=== PATIENT | male | born 1970 | race Caucasian/White ===

== ENCOUNTER 2019-06-04 15:55 | Inpatient (IN) | payer MEDICAID ==
[~2019-06-04] VITALS: Ht 175.3 cm; Wt 72.7 kg
[~2019-06-04 15:55] MED LIST: BACTRIM PO; CEPH-443 PO; CHOL100062 PO; MULTI PO; THIA100T56 PO
[2019-06-04] MEDS ORDERED: ONDANSETRON 4 MG INJ IV STA (16:10)
[2019-06-04] MEDS ORDERED: CLINDAMYCIN 900 MG/D5W (PMX) 50 ML IVPB STA (16:10)
[2019-06-04] MEDS ORDERED: VANCOMYCIN 1 GM (PMX) 250 ML IVPB STA (16:10)
[2019-06-04] MEDS ORDERED: morphine 4 MG/ML VIAL IV STA (16:10)
[2019-06-04] MEDS ORDERED: PIPER-TAZO 3.375 GM IV (PMX) 100 ML IVPB STA (16:10)
[2019-06-04 16:50] VITALS: Ht 175.3 cm; Wt 72.7 kg
--- NOTE | 2019-06-04 19:34 | ERD ---
ER Documentation Chief Complaint Chief Complaint RT foot wound, RT lower ext red swollen HPI This is a 48-year-old male who is currently homeless and states he has no past medical history. He is complaining of right foot pain. He indicates that he has had redness to his right foot for several months but it is progressively worsened over the past several days. Indicates he is been in the sun and feels dehydrated. He smokes tobacco. He denies illicit drug use and no shortness of breath. He does state he consumed alcohol in a regular basis. He denies any feelings of anxiousness. He has no chest pain. He states the right foot pain is a dull ache. He states it is 5 out of 10 in intensity. He also complains of tenderness of his right calf which is a cramping sensation. He states he had no fevers no shaking no chills. ROS All systems reviewed and are negative except as per history of present illness. Medications Home Meds Active Scripts Cephalexin* (Keflex*) 500 Mg Capsule, 500 MG PO QID for 10 Days, CAP Prov:SHOLA GOOD MD 06/04/19 Trimethoprim-Sulfamethoxazole* (Bactrim*) 400-80 Mg Tab, 1 TAB PO BID, #20 TAB Prov:SOHLA GOOD MD 06/04/19 Allergies Allergies: Coded Allergies: No Known Allergy (Unverified , 06/04/19) PMhx/Soc Medical and Surgical Hx: pt denies Medical Hx, pt denies Surgical Hx, Unable to obtain Hx Alcohol Use: Yes (possible heavy use pt states "I drink a lot") Hx Substance Use: Yes Hx Tobacco Use: Yes Smoking Status: Current every day smoker Physical Exam Vitals Vital Signs Date Temp Pulse Resp B/P (MAP) Pulse Ox O2 O2 Flow FiO2 Time Delivery Rate 06/05/19 68 20 151/108 98 Room Air 07:14 (122) 06/05/19 98.3 80 20 156/93 96 Room Air 02:16 (114) 06/04/19 98.4 85 22 152/106 100 Room Air 19:14 (121) 06/04/19 98.4 92 22 154/99 100 16:50 (117) Physical Exam Constitutional:Well-developed. Very disheveled HEENT:Normocephalic. Atraumatic.Pupils were 5 mm equal reactive to light bilaterally. Moist mucous membranes.No tonsillar exudates. Neck: No nuchal rigidity. No lymphadenopathy. No posterior cervical spine tenderness or step-offs. Respiratory: Not using accessory muscles of respiration.Lungs were clear to auscultation bilaterally. No rhonchi. No rales. No wheezing. Cardiovascular: Regular rate regular rhythm.No murmurs. No rubs were appreciated.S1, S2 normal. Distal pulses are palpable 2+ bilaterally. GI: Abdomen was soft. Nontender. Non Distended. No pulsatile abdominal masses or bruits. No rebound. No guarding. Bowel sounds were present and normal. Muscle skeletal: Full range of motion of both the upper and lower extremities bilaterally.Normal muscle tone.tenderness of the right calf with no asymmetrical swelling. Negative Homans sign bilaterally Skin: No petechia, no purpura. No lesions on the palms or the soles of the feet. No maculopapular rash. Erythremia and warmth over the distal third of the right lower extremity including the dorsal aspect of the foot. Onychomycosis bilaterally. Excoriation of the skin extending over the right ankle and dorsal aspect of the foot. No subcutaneous emphysema. NEURO: Patient was alert, awake to person but not to place or time. Patient was very guarded and only spoke a few words. However speech was not slurred. Gait was not observed as patient refused to ambulate. Result Diagram: 06/04/19 1637 06/04/19 1637 Results 24 hrs Laboratory Tests Test 06/04/19 16:36 06/04/19 16:37 06/04/19 16:41 06/04/19 16:46 Urine Color YELLOW Urine Clarity CLEAR Urine pH 6.0 Urine Specific 1.015 [place] Urine Ketones NEGATIVE mg/dL Urine Nitrite NEGATIVE mg/dL Urine Bilirubin NEGATIVE mg/dL Urine NEGATIVE mg/dL Urobilinogen Urine Leukocyte NEGATIVE Elly/ul Esterase Urine Hemoglobin NEGATIVE mg/dL Urine Glucose NEGATIVE mg/dL Urine Total NEGATIVE mg/dl Protein Salicylates Level < 1.0 mg/dl Urine Opiates Positive Screen Acetaminophen < 10.0 ug/ml Level Urine Negative Barbiturates Urine POSITIVE Amphetamines Screen Urine Negative Benzodiazepines Screen Urine Cocaine Negative Screen Urine Negative Cannabinoids Ethyl Alcohol < 10.0 mg/dl Level White Blood Count 7.1 10^3/ul Red Blood Count 4.32 10^6/ul Hemoglobin 12.3 g/dl Hematocrit 37.9 % Mean Corpuscular 87.7 fl Volume Mean Corpuscular 28.5 pg Hemoglobin Mean Corpuscular 32.5 g/dl Hemoglobin Concen t Red Cell 14.2 % Distribution Width Platelet Count 445 10^3/UL Mean Platelet 8.1 fl Volume Immature 0.600 % Granulocytes % Neutrophils % 55.7 % Lymphocytes % 28.9 % Monocytes % 9.3 % Eosinophils % 4.8 % Basophils % 0.7 % Nucleated Red 0.0 /100WBC Blood Cells % Immature 0.040 10^3/ul Granulocytes # Neutrophils # 4.0 10^3/ul Lymphocytes # 2.1 10^3/ul Monocytes # 0.7 10^3/ul Eosinophils # 0.3 10^3/ul Basophils # 0.1 10^3/ul Nucleated Red 0.0 10^3/ul Blood Cells # Prothrombin Time 11.9 Sec Prothrombin Time 0.9 Ratio INR International 0.87 Normalized Ratio Activated 35.0 Sec Partial Thrombopl ast Time Sodium Level 142 mmol/L Potassium Level 3.9 mmol/L Chloride Level 105 mmol/L Carbon Dioxide 29 mmol/L Level Anion Gap 8 Blood Urea 10 mg/dl Nitrogen Creatinine 0.73 mg/dl Est Glomerular > 60 mL/min Filtrat Rate mL/min Glucose Level 112 mg/dl Calcium Level 9.1 mg/dl Total Bilirubin 0.2 mg/dl Direct Bilirubin 0.00 mg/dl Indirect 0.2 mg/dl Bilirubin Aspartate Amino 26 IU/L Transf (AST/SGOT) Alanine 20 IU/L Aminotransferase (ALT/SGPT) Alkaline 98 IU/L Phosphatase Troponin I < 0.012 ng/ml Total Protein 7.7 g/dl Albumin 3.6 g/dl Globulin 4.10 g/dl Albumin/Globulin 0.87 Ratio Amylase Level 82 U/L Lipase 105 U/L Bedside Glucose 109 mg/dL POC Venous 1.7 mmol/L Lactate Test 06/04/19 16:47 POC Venous 1.6 mmol/L Lactate Current Medications Medications Dose Sig/Americo Start Time Status Last (Trade) Ordered Route PRN Stop Time Admin Dose Reason Admin Morphine 4 mg ONCE STAT 06/04/19 DC 06/04/19 Sulfate IV 16:10 16:44 (morphine) 06/04/19 16:26 Ondansetron 4 mg ONCE STAT 06/04/19 DC 06/04/19 HCl (Zofran IV 16:10 16:44 Inj) 06/04/19 16:26 Vancomycin 250 ml @ ONCE STAT 06/04/19 DC 06/04/19 HCl 125 mls/hr IVPB 16:10 19:12 06/04/19 18:09 Clindamycin 50 ml @ 50 ONCE STAT 06/04/19 DC 06/04/19 HCl/ mls/hr IVPB 16:10 18:12 Dextrose 06/04/19 17:09 Piperacillin 100 ml @ ONCE STAT 06/04/19 DC 06/04/19 Sod/ 200 mls/hr IVPB 16:10 16:44 Tazobactam 06/04/19 16:39 Sod Procedures/MDM The patient presented to the emergency department with a spreading erythematous superficial infection of the skin and subcutaneous tissues. My differential diagnosis included but was not limited to necrotizing fasciitis, lymphangitis, thrombophlebitis, deep vein thrombosis, allergic reaction, neoplasm, gout or abscess. Predisposing factors of the progressive spread of erythema, warmth, pain and tenderness was considered such as lymphedema, tinea pedis, open wounds, prior trauma or surgery, pre-existing skin lesion (furuncle), retained foreign body, injection drug use or vascular or immune compromise. The patient was placed on antibiotics to cover Staphylococcus aureus, including resistant strains such as community-acquired methicillin-resistant S. aureus. The patient is homeless and appeared very disheveled. I did obtain a venous duplex ultrasound which was negative for deep vein thrombosis. The patient showed no evidence of arterial insufficiency. The patient was afebrile, no leukocytosis. Repeat lactic acids were all normal and no evidence of sepsis. I did administer IV antibiotics which included vancomycin and clindamycin and Zosyn given that the patient states he has poor access to medications. I offered admission to the hospital for the patient but he stated he did not want to stay as he wanted to go smoke cigarettes. He refused a nicotine patch. rolled materials worker came to speak with the patient and provide outpatient resources. The patient however was unable to provide his birthdate or name. He would only speak several words at a time. Placement was attempted by the social services counselor however no facility was able to take the patient due to the lack of information and also that the patient was gravely disabled unable to ambulate and needed wound care dressing changes. The patient remained in the emergency department for over 19 hours. Upon multiple re-evaluations by myself the patient had now developed purulent drainage over the wound. I did feel he required admission for continuation of IV antibiotics. He will be admitted to the hospitalist. Critical Care: Time: 60 minutes Treatments/Evaluations: Close monitoring and treatment of unstable vital signs, cardiorespiratory, and neurologic status, while maintaining tight balance of fluid, respiratory, and cardiac interventions. Time does not include performing any of the above billable procedures. Departure Diagnosis: Primary Impression: Cellulitis Site of cellulitis: extremity Site of cellulitis of extremity: lower extremity Laterality: left Qualified Codes: L03.116 - Cellulitis of left lower limb Additional Impression: Amphetamine abuse Condition: Serious Patient Instructions: Cellulitis SHOLA GOOD MD Jun 04, 2019 19:34
[2019-06-05] MEDS ORDERED: ONDANSETRON 4 MG INJ IV PRN ×2 (12:30→14:30)
[2019-06-05] MEDS ORDERED: ACETAMINOPHEN 325 MG TAB PO PRN ×2 (12:30→14:30)
[2019-06-05 14:09] VITALS: BP 146/87; PULSE 82; RESP 19
--- NOTE | 2019-06-05 14:10 | HP ---
Date/Time of Note Date/Time of Note DATE: 06/05/19 TIME: 14:10 Assessment/Plan VTE Prophylaxis Pharmacological prophylaxis: LMWH Lines/Catheters IV [facility] Saline Lock Assessment/Plan Hospital Course 48-year-old male who is apparently homeless with no details of his identity, medical, and social history, who presented to the emergency room with chief complaint of right lower extremity redness and pain, with evidence of underlying right lower extremity cellulitis, who will be admitted to inpatient setting for further treatment and evaluation. 1. Right lower extremity cellulitis. Start antimicrobials including coverage for MRSA. Obtain ID consult. Obtain podiatry evaluation. Arterial Doppler study negative for any significant arterial occlusion. Bilateral lower extremity venous Doppler study negative for any DVT. 2. Alcohol abuse. Will start the patient on vitamin supplements. Will start the patient on Librium taper. Will maintain the patient on PRN IV benzodiazepines for any active DTs. 3. Nicotine use. Cessation will be advised. Nicotine patch if the patient developed central symptoms. 4. Normocytic anemia. Most probably anemia chronic disease. Monitor H&H closely. 5. Homelessness. kiln worker consult. 6. Incomplete database. Obtain social work consult. Plan: The patient will be admitted to inpatient medical surgical floor. The patient will be started on a regular diet. The patient will be started on DVT prophylaxis. The patient will remain a full code. Activities will be with assist. The rest of the patient's management will be based on the clinical course, inputs from consultants, and the results of diagnostic studies. Based on the patient's clinical presentation, he most probably requires more than 2 midnights' stay for further management and evaluation of his clinical presentation. The patient was seen in collaboration with Dr. Hernandez. Result Diagram: 06/04/19 1637 06/04/19 1637 Results 24hrs Laboratory Tests Test 06/04/19 16:36 06/04/19 16:37 06/04/19 16:41 06/04/19 16:46 Urine Color YELLOW Urine Clarity CLEAR Urine pH 6.0 Urine Specific 1.015 [place] Urine Ketones NEGATIVE Urine Nitrite NEGATIVE Urine Bilirubin NEGATIVE Urine Urobilinogen NEGATIVE Urine Leukocyte NEGATIVE Esterase Urine Hemoglobin NEGATIVE Urine Glucose NEGATIVE Urine Total Protein NEGATIVE Salicylates Level < 1.0 L Urine Opiates Screen Positive Acetaminophen Level < 10.0 L Urine Barbiturates Negative Urine Amphetamines POSITIVE Screen Urine Negative Benzodiazepines Screen Urine Cocaine Screen Negative Urine Cannabinoids Negative Ethyl Alcohol Level < 10.0 H White Blood Count 7.1 Red Blood Count 4.32 L Hemoglobin 12.3 L Hematocrit 37.9 L Mean Corpuscular 87.7 Volume Mean Corpuscular 28.5 L Hemoglobin Mean Corpuscular 32.5 Hemoglobin Concent Red Cell 14.2 Distribution Width Platelet Count 445 H Mean Platelet Volume 8.1 Immature 0.600 H Granulocytes % Neutrophils % 55.7 Lymphocytes % 28.9 Monocytes % 9.3 Eosinophils % 4.8 Basophils % 0.7 Nucleated Red Blood 0.0 Cells % Immature 0.040 H Granulocytes # Neutrophils # 4.0 Lymphocytes # 2.1 Monocytes # 0.7 Eosinophils # 0.3 Basophils # 0.1 Nucleated Red Blood 0.0 Cells # Prothrombin Time 11.9 Prothrombin Time 0.9 Ratio INR International 0.87 Normalized Ratio Activated 35.0 Partial Thromboplast Time Sodium Level 142 Potassium Level 3.9 Chloride Level 105 Carbon Dioxide Level 29 Anion Gap 8 Blood Urea Nitrogen 10 Creatinine 0.73 Est Glomerular > 60 Filtrat Rate mL/min Glucose Level 112 Calcium Level 9.1 Total Bilirubin 0.2 Direct Bilirubin 0.00 Indirect Bilirubin 0.2 Aspartate Amino 26 Transf (AST/SGOT) Alanine 20 Aminotransferase (AL T/SGPT) Alkaline Phosphatase 98 Troponin I < 0.012 Total Protein 7.7 Albumin 3.6 Globulin 4.10 H Albumin/Globulin 0.87 Ratio Amylase Level 82 Lipase 105 Bedside Glucose 109 POC Venous Lactate 1.7 Test 06/04/19 16:47 POC Venous Lactate 1.6 HPI/ROS Admit Date/Time Admit Date/Time Jun 05, 2019 at 12:03 Hx of Present Illness Reason for admission: Right lower extremity cellulitis, failure to thrive. Consultants 1. Freddie Zambrano MD, Infectious Diseases. 2. Haider Gilliam DPM, Podiatry. This is a 48-year-old male who does not know his name, age, or any other details who presented to the emergency room with a chief complaint of pain involving the right lower extremity. The patient is homeless. The patient has been having the right foot pain and chronic skin changes for approximately few months. However, he was unable to provide any further details of his history of present illness, his medical, surgical, or social history. The patient does not know where he lives. He does not know about any of his friends or family. However, the patient verbalized that he drinks alcohol on a daily basis. He also smokes cigarettes. He denied using any recreational drugs. However, his urine drug screen was positive for amphetamines. The patient was initially evaluated at the emergency room on 06/04/2019 and the plan was to discharge him on oral antibiotics. However, the patient did not have any safe disposal. kiln worker was involved in the patient's case. However, because of unknown identity of the patient, there was difficulty in placing this patient. Therefore, the patient will be admitted to inpatient setting for treating his right lower extremity cellulitis and assisting him with a safe disposal. ROS Subjective hx not possible: other (Patient confused and disoriented.) PMH/Family/Social Past Medical History Unable to obtain (patient does not know). Coded Allergies: No Known Allergy (Unverified , 06/04/19) Past Surgical History Unable to obtain (patient does not know). Right foot imaging shows evidence of RLE orthopedic surgery. Social History Alcohol Use: heavy Smoking Status: Current every day smoker Drug Use: other (Positive methamphetamine in urine.) Exam/Review of Systems Vital Signs Vitals Vital Signs Date Temp Pulse Resp B/P (MAP) Pulse Ox O2 O2 Flow FiO2 Time Delivery Rate 06/05/19 98.8 70 18 92/77 (82) 98 Room Air 12:32 Intake and Output 06/04/19 06/04/19 06/05/19 1515:00 23:00 07:00 IntakeIntake Total 150 ml BalanceBalance 150 ml Exam Exam General: Adequately build 48 year-old male lying in bed in no apparent distress, looks disheveled. HEENT: Normocephalic, atraumatic. Eyes: Anicteric sclerae, conjunctivae clear. ENT: Nasal septum midline, oral mucosa is dry. Neck supple, no JVD noticed. Respiratory: Bilaterally diminished breath sounds. No use of accessory muscles of respiration. No adventitious breath sounds. Cardiovascular: S1, S2 heard. Regular rate and rhythm. Abdomen: Soft, nontender, and nondistended. Bowel sounds positive in all 4 qu adrants. Genitourinary: Deferred. Extremities: No cyanosis, no clubbing. Right lower extremity circumferential erythema from the middle of the orosco to the ankle joint. Edema of the right ankle joint. Excessive exfoliation of the right lower extremity with dry scabs circumferentially. Peripheral pulses palpable. Neurologic: The patient is awake and alert. Unable to tell his name, age, his location, or any other personal details. Answers" I do not know" to all questions related to his identity. Additional Comments B/L LE Arterial Doppler Study IMPRESSION: 1. Diffuse lower extremity arterial wall calcifications without evidence of focal hemodynamically significant stenosis. B/L LE Venous Doppler Study IMPRESSION: No sonographic evidence for bilateral lower extremity deep venous thrombosis. Right Foot X-Ray IMPRESSION: Unremarkable right foot radiographs. Intramedullary rashaun traversing an old healed distal tibial fracture. Internal fixator plate and screws distal fibula. KAILYN GILBERT NP Jun 05, 2019 14:10
[2019-06-05] MEDS ORDERED: VANCOMYCIN IV PER PHARMACY XX SCH (15:00)
--- NOTE | 2019-06-05 16:53 | CONS ---
Assessment/Plan Assessment/Plan Assessment/Plan (Daily) Right lower extremity cellulitis Right lower extremity non pressure chronic ulceration Onychomycosis Tinea pedis Homelessness Alcohol abuse Nicotine dependence Plan Patient was seen and examined and provided nursing instructions regarding dressings. Daily irrigation with dakins, application of betadine 4x4 gauze and wrap with kerlix. Patient states too painful to do a bedside debridement. Will plan for OR debridement and coordinate with OR to find available time. Wound cultures to be obtained. Antibiotics per recommendations. Consultation Date/Type/Reason Admit Date/Time Jun 05, 2019 at 12:03 Date/Time of Note DATE: 06/05/19 TIME: 16:53 Hx of Present Illness 48-year-old male who is a poor historian. Per reports he does not know his name, age, or any other details. Presented to the emergency room with a chief complaint of pain involving the right lower extremity. The patient is homeless. The patient has been having the right foot pain and chronic skin changes for approximately few months. However, he was unable to provide any further details of his history of present illness, his medical, surgical, or social history. The patient does not know where he lives. He does not know about any of his friends or family. However, the patient verbalized that he drinks alcohol on a daily basis. He also smokes cigarettes. He denied using any recreational drugs. However, his urine drug screen was positive for amphetamines. ROS negative except for HPI Past Medical History unknown Home Meds Active Scripts Cephalexin* (Keflex*) 500 Mg Capsule, 500 MG PO QID for 10 Days, CAP Prov:SHOLA GOOD MD 06/04/19 Trimethoprim-Sulfamethoxazole* (Bactrim*) 400-80 Mg Tab, 1 TAB PO BID, #20 TAB Prov:SHOLA GOOD MD 06/04/19 Medications Current Medications IV Flush (NS 3 ml) 3 ml PER PROTOCOL IV ; Start 06/05/19 at 14:30 Ondansetron HCl (Zofran Inj) 4 mg Q6H PRN IV NAUSEA/VOMITING; Start 06/05/19 at 14:30 Acetaminophen (Tylenol Tab) 650 mg Q6H PRN PO .PAIN 1-3 OR TEMP; Start 06/05/19 at 14:30 Acetaminophen/ Hydrocodone Bitart ([place] (5/325)) 1 tab Q6H PRN PO .MOD PAIN 4- 6; Start 06/05/19 at 14:30 Enoxaparin Sodium (Lovenox) 40 mg DAILY SC ; Start 06/06/19 at 09:00 Vancomycin HCl (Vanco Iv Per Pharmacy) VANCOMYCIN PER PHARMACY PER PROTOCOL XX ; Start 06/05/19 at 15:00 Piperacillin Sod/ Tazobactam Sod 100 ml @ 200 mls/hr Q6 IVPB ; Start 06/05/19 at 16:00 Chlordiazepoxide (Librium) 25 mg TID PO ; Start 06/05/19 at 16:00 Lorazepam (Ativan) 1 mg Q6H PRN IV Anxiety; Start 06/05/19 at 15:00 Vancomycin HCl 1.25 gm/Sodium Chloride 250 ml @ 83.333 mls/ hr ONCE ONCE IVPB ; Start 06/05/19 at 17:00; Stop 06/05/19 at 19:59 Vancomycin HCl 250 ml @ 125 mls/hr Q12H IVPB ; Start 06/06/19 at 05:00 Thiamine HCl (Vitamin B1) 100 mg DAILY PO ; Start 06/06/19 at 09:00 Multivitamins Therapeutic (Theragran) 1 tab DAILY PO ; Start 06/06/19 at 09:00 Allergies: Coded Allergies: No Known Allergy (Unverified , 06/04/19) Past Surgical History Right foot imaging shows evidence of RLE orthopedic surgery. Family History Significant Family History: no pertinent family hx Social History Alcohol Use: heavy Smoking Status: Current every day smoker Drug Use: other (Positive methamphetamine in urine.) Exam/Review of Systems Exam Vitals Vital Signs Date Temp Pulse Resp B/P (MAP) Pulse Ox O2 O2 Flow FiO2 Time Delivery Rate 06/05/19 98.5 82 19 146/87 95 Room Air 14:09 (106) Intake and Output 06/04/19 06/04/19 06/05/19 1515:00 23:00 07:00 IntakeIntake Total 150 ml BalanceBalance 150 ml Exam Palpable pedal pulses Protective sensations intact Mycotic thickened toe nails Patient's feet are covered in dry dirt Right lower extremity with diffuse erythema Right lower extremity dorsal foot ulceration fibrogranular with dry eschar 3 x 3 x 0.2cm, unable to probe to bone Right lateral and anterior leg ulcer which measures 4 x 8 x 0.2cm fibrogranular with dry eschar unable to probe to bone there is purulent collections appreciated within the eschar sites Overall unkempt appearance. Muscle strength 5/5 in all compartments of the foot. Results Result Diagram: 06/05/19 1523 06/05/19 1523 Results 24hrs Laboratory Tests Test 06/05/19 15:23 White Blood Count 8.7 # Red Blood Count 4.58 L Hemoglobin 12.9 L Hematocrit 39.9 L Mean Corpuscular Volume 87.1 Mean Corpuscular Hemoglobin 28.2 L Mean Corpuscular Hemoglobin Concent 32.3 Red Cell Distribution Width 14.4 Platelet Count 514 H Mean Platelet Volume 8.1 Immature Granulocytes % 0.600 H Neutrophils % 64.6 Lymphocytes % 22.6 Monocytes % 7.5 Eosinophils % 4.0 Basophils % 0.7 Nucleated Red Blood Cells % 0.0 Immature Granulocytes # 0.050 H Neutrophils # 5.6 Lymphocytes # 2.0 Monocytes # 0.7 Eosinophils # 0.4 Basophils # 0.1 Nucleated Red Blood Cells # 0.0 Erythrocyte Sedimentation Rate 48 H Sodium Level 143 Potassium Level 3.8 Chloride Level 105 Carbon Dioxide Level 29 Anion Gap 9 Blood Urea Nitrogen 11 Creatinine 0.66 Est Glomerular Filtrat Rate mL/min > 60 Glucose Level 120 Hemoglobin A1c 5.4 Calcium Level 8.7 Phosphorus Level 3.6 Magnesium Level 1.9 Total Bilirubin 0.2 Direct Bilirubin 0.00 Indirect Bilirubin 0.2 Aspartate Amino Transf (AST/SGOT) 22 Alanine Aminotransferase (ALT/SGPT) 15 Alkaline Phosphatase 95 C-Reactive Protein Pending Total Protein 7.9 Albumin 3.8 Globulin 4.10 H Albumin/Globulin Ratio 0.92 Thyroid Stimulating Hormone (TSH) Pending Free Thyroxine 1.15 Medications Medication Current Medications IV Flush (NS 3 ml) 3 ml PER PROTOCOL IV ; Start 06/05/19 at 14:30 Ondansetron HCl (Zofran Inj) 4 mg Q6H PRN IV NAUSEA/VOMITING; Start 06/05/19 at 14:30 Acetaminophen (Tylenol Tab) 650 mg Q6H PRN PO .PAIN 1-3 OR TEMP; Start 06/05/19 at 14:30 Acetaminophen/ Hydrocodone Bitart ([place] (5/325)) 1 tab Q6H PRN PO .MOD PAIN 4- 6; Start 06/05/19 at 14:30 Enoxaparin Sodium (Lovenox) 40 mg DAILY SC ; Start 06/06/19 at 09:00 Vancomycin HCl (Vanco Iv Per Pharmacy) VANCOMYCIN PER PHARMACY PER PROTOCOL XX ; Start 06/05/19 at 15:00 Piperacillin Sod/ Tazobactam Sod 100 ml @ 200 mls/hr Q6 IVPB ; Start 06/05/19 at 16:00 Chlordiazepoxide (Librium) 25 mg TID PO ; Start 06/05/19 at 16:00 Lorazepam (Ativan) 1 mg Q6H PRN IV Anxiety; Start 06/05/19 at 15:00 Vancomycin HCl 1.25 gm/Sodium Chloride 250 ml @ 83.333 mls/ hr ONCE ONCE IVPB ; Start 06/05/19 at 17:00; Stop 06/05/19 at 19:59 Vancomycin HCl 250 ml @ 125 mls/hr Q12H IVPB ; Start 06/06/19 at 05:00 Thiamine HCl (Vitamin B1) 100 mg DAILY PO ; Start 06/06/19 at 09:00 Multivitamins Therapeutic (Theragran) 1 tab DAILY PO ; Start 06/06/19 at 09:00 RODRIGUEZ CHILDRESS DPM Jun 05, 2019 16:53
[2019-06-05] MEDS ORDERED: VANCOMYCIN HCL 1.25 GM in SOD CHLORIDE 0.9% 250 ML IVPB ONE (17:00)
[2019-06-05] MEDS: PIPER-TAZO 3.375 GM IV (PMX) 100 ML IVPB SCH ×2 (17:52→23:33)
[2019-06-05] MEDS: CHLORDIAZEPOXIDE 25 MG CAP PO SCH ×2 (18:12→23:32)
[2019-06-05 20:49] VITALS: BP 132/99; PULSE 86; RESP 18
--- NOTE | 2019-06-05 22:06 | CONS ---
DATE OF ADMISSION: 06/05/2019 DATE OF CONSULTATION: 06/05/2019 TYPE OF CONSULTATION: Infectious Disease. REASON FOR CONSULTATION: Antibiotic management. HISTORY OF PRESENT ILLNESS: One Two is a 48-year-old male who comes in with right lower extremity re dness and swelling and right foot wound. The patient is homeless, has no past medical history, compl ains of right foot pain. He has redness in his right foot for several months, progressively worsened over the past few days. Notes that he has been in the sun and feels dehydrated. He denies illicit drug use and no shortness of breath. He does consume alcohol on a regular basis. He denies feelings of anxiousness. He has no chest pain. He states that his right foot pain is dull, 5/10 in intensit y. He complains of tenderness in his right calf, but has no other symptoms. He has no fever or javier ing chills. SOCIAL HISTORY: He is a heavy drinker. He smokes every day. ALLERGIES: NONE TO PENICILLIN, SULFA OR FOODS. MEDICATIONS: Per chart. REVIEW OF SYSTEMS: As per HPI. PHYSICAL EXAMINATION: GENERAL: The patient is a very disheveled male. He is awake, in no acute distress. VITAL SIGNS: Stable. He is afebrile. SKIN: He has erythema and warmth of the distal third of the right lower extremity including the dors al aspect of foot. Onychomycosis bilaterally. Excoriation of the skin extending over the right ankl e and dorsal aspect of the foot. No subcutaneous emphysema. HEENT: Within normal limits. NECK: Supple. LYMPH NODES: None palpable. CHEST: Decreased breath sounds at the bases. HEART: Without murmur or gallop. ABDOMEN: Soft, nontender, without organosplenomegaly or masses. EXTREMITIES: Without cyanosis, clubbing, or edema. As noted, he has erythema, warmth of the distal third of the right lower extremity. RECTAL AND GENITAL: Deferred. NEUROLOGICAL EVALUATION: No focal neurological abnormality. ANCILLARY LABORATORY DATA: The patient has a white count 7.1 with 58% neutrophils, H and H of 12.3 a nd 37.9, platelet count 445,000. BUN and creatinine 10/0.73, glucose 112. Urine is negative for lamar kocyte esterase, positive for amphetamines. IMPRESSION AND PLAN: The patient was started on vancomycin, clindamycin and Zosyn. The clindamycin added for possible group A strep and the possibility of necrotizing fasciitis. The ERs differential, according to Dr. Kinney, was necrotizing fasciitis, lymphangitis, thrombophlebitis, deep vein thro mbosis, allergic reaction, neoplasm, gout or abscess. The patient was started on vancomycin to cover Staph aureus and also clindamycin and Zosyn. Presently, there is no growth in the urine. The patie nt is essentially stable at this point. Unremarkable right foot radiographs. No sonographic evidenc e of bilateral lower extremity deep vein thrombosis. Chest x-ray: No evidence for acute or active c ardiopulmonary disease and diffuse lower extremity arterial wall calcification without evidence of fo mariah hemodynamically significant stenosis. Aortoiliac disease cannot be excluded based on this examin ation. For the time being, will continue on current therapy. The clindamycin was discontinued, syed guillermo I concur with. We will continue current therapy. I want to thank the hospitalist for asking us to see this unfortunate gentleman in consultation. Dictated By: MARIVEL ZARAGOZA MD, JD/KHUSHI Conf#: [id number] DID#: [id number] CC: ASHLEY HORTA MD;*EndCC*
[2019-06-06 01:58] VITALS: BP 148/79; PULSE 74; RESP 20
[2019-06-06] MEDS: VANCOMYCIN 1 GM 250 ML IVPB SCH ×2 (04:38→17:15)
[2019-06-06] MEDS: PIPER-TAZO 3.375 GM IV (PMX) 100 ML IVPB SCH ×2 (06:39→12:52)
[2019-06-06 07:43] VITALS: BP 150/89; PULSE 75; RESP 19
[2019-06-06] MEDS: ENOXAPARIN 40 MG/0.4 ML SYG SC SCH (09:00)
[2019-06-06] MEDS: CHOLECALCIFEROL 1,000 UNIT TAB PO SCH (09:10)
[2019-06-06] MEDS: MULTIVITAMINS THERAPEUTIC TAB PO SCH (09:10)
[2019-06-06] MEDS: CHLORDIAZEPOXIDE 25 MG CAP PO SCH ×3 (09:10→20:19)
[2019-06-06] MEDS: DAKINS 0.0125%(1/40) 473 ML SOLUTION TP SCH (09:10)
[2019-06-06] MEDS: THIAMINE 100 MG TAB PO SCH (09:10)
--- NOTE | 2019-06-06 11:02 | PSY ---
Date/Time of Note Date/Time of Note DATE: 06/06/19 TIME: 10:57 Psychiatric Subjective Eval Consent Pt consented to telemedicine: No Subjective Evaluation Patient location: inpatient Chief Complaint: RT foot wound, RT lower ext red swollen History of present illness Patient is patient is a 58-year-old male , homeless with no details of his identity. He is selectively mute, responding to questions in a monosyllables, and nodding his head. Patient stared blankly, cannot process information, in poor contact with reality. He has poor impulse control poor coping skills, denies suicidal ideation, denies feeling of hopelessness and helplessness, denies hearing voices and contracted for safety. Patient declined any psychiatric medication at the moment, will need a reevaluation in a few days. Past psychiatric history Refused response Hospitalization: other Medical history Problems Medical Problems: (1) Amphetamine abuse Status: Acute (2) Cellulitis Status: Acute Allergies: Coded Allergies: No Known Allergy (Unverified , 06/04/19) Substance Abuse Substance use: other (No response) Social History Marital status: other DPA/Conservatorship: No Psychiatric Objective Eval Mental Status Examination: Eye Contact: Poor Behavior: Guarded Speech: Other (Selectively mute) AFFECT: Constricted (Guarded) Mood: Other Thought Content: Other Orientation: x3 Insight: Severe Judgement: Severe Attention Span: Distractible Laboratory Results Laboratory Tests Test 06/04/19 16:36 06/04/19 16:37 06/04/19 16:41 06/04/19 16:46 Urine Color YELLOW Urine Clarity CLEAR Urine pH 6.0 Urine Specific 1.015 Yulan Urine Ketones NEGATIVE mg/dL Urine Nitrite NEGATIVE mg/dL Urine Bilirubin NEGATIVE mg/dL Urine NEGATIVE mg/dL Urobilinogen Urine Leukocyte NEGATIVE Elly/ul Esterase Urine NEGATIVE mg/dL Hemoglobin Urine Glucose NEGATIVE mg/dL Urine Total NEGATIVE mg/dl Protein Salicylates < 1.0 mg/dl Level Urine Opiates Positive Screen Acetaminophen < 10.0 ug/ml Level Urine Negative Barbiturates Urine POSITIVE Amphetamines Screen Urine Negative Benzodiazepines Screen Urine Cocaine Negative Screen Urine Negative Cannabinoids Ethyl Alcohol < 10.0 mg/dl Level White Blood 7.1 10^3/ul Count Red Blood Count 4.32 10^6/ul Hemoglobin 12.3 g/dl Hematocrit 37.9 % Mean 87.7 fl Corpuscular Volume Mean 28.5 pg Corpuscular Hemoglobin Mean 32.5 g/dl Corpuscular Hemoglobin Conc ent Red Cell 14.2 % Distribution Width Platelet Count 445 10^3/UL Mean Platelet 8.1 fl Volume Immature 0.600 % Granulocytes % Neutrophils % 55.7 % Lymphocytes % 28.9 % Monocytes % 9.3 % Eosinophils % 4.8 % Basophils % 0.7 % Nucleated Red 0.0 /100WBC Blood Cells % Immature 0.040 10^3/ul Granulocytes # Neutrophils # 4.0 10^3/ul Lymphocytes # 2.1 10^3/ul Monocytes # 0.7 10^3/ul Eosinophils # 0.3 10^3/ul Basophils # 0.1 10^3/ul Nucleated Red 0.0 10^3/ul Blood Cells # Prothrombin 11.9 Sec Time Prothrombin 0.9 Time Ratio INR 0.87 International Normalized Rati o Activated 35.0 Sec Partial Thrombo plast Time Sodium Level 142 mmol/L Potassium Level 3.9 mmol/L Chloride Level 105 mmol/L Carbon Dioxide 29 mmol/L Level Anion Gap 8 Blood Urea 10 mg/dl Nitrogen Creatinine 0.73 mg/dl Est Glomerular > 60 mL/min Filtrat Rate mL/min Glucose Level 112 mg/dl Calcium Level 9.1 mg/dl Total Bilirubin 0.2 mg/dl Direct 0.00 mg/dl Bilirubin Indirect 0.2 mg/dl Bilirubin Aspartate Amino 26 IU/L Transf (AST/SGO T) Alanine 20 IU/L Aminotransferas e (ALT/SGPT) Alkaline 98 IU/L Phosphatase Troponin I < 0.012 ng/ml Total Protein 7.7 g/dl Albumin 3.6 g/dl Globulin 4.10 g/dl Albumin/Globuli 0.87 n Ratio Amylase Level 82 U/L Lipase 105 U/L Bedside Glucose 109 mg/dL POC Venous 1.7 mmol/L Lactate Test 06/04/19 16:47 06/05/19 15:17 06/05/19 15:23 06/06/19 05:25 POC Venous 1.6 mmol/L Lactate C-Reactive < 0.5 mg/dl 0.5 mg/dl Protein Procalcitonin 0.02 ng/mL White Blood 8.7 10^3/ul 9.1 10^3/ul Count Red Blood Count 4.58 10^6/ul 4.54 10^6/ul Hemoglobin 12.9 g/dl 12.8 g/dl Hematocrit 39.9 % 39.8 % Mean 87.1 fl 87.7 fl Corpuscular Volume Mean 28.2 pg 28.2 pg Corpuscular Hemoglobin Mean 32.3 g/dl 32.2 g/dl Corpuscular Hemoglobin Conc ent Red Cell 14.4 % 14.4 % Distribution Width Platelet Count 514 10^3/UL 532 10^3/UL Mean Platelet 8.1 fl 8.1 fl Volume Immature 0.600 % 0.700 % Granulocytes % Neutrophils % 64.6 % 60.2 % Lymphocytes % 22.6 % 25.6 % Monocytes % 7.5 % 8.6 % Eosinophils % 4.0 % 4.1 % Basophils % 0.7 % 0.8 % Nucleated Red 0.0 /100WBC 0.0 /100WBC Blood Cells % Immature 0.050 10^3/ul 0.060 10^3/ul Granulocytes # Neutrophils # 5.6 10^3/ul 5.5 10^3/ul Lymphocytes # 2.0 10^3/ul 2.3 10^3/ul Monocytes # 0.7 10^3/ul 0.8 10^3/ul Eosinophils # 0.4 10^3/ul 0.4 10^3/ul Basophils # 0.1 10^3/ul 0.1 10^3/ul Nucleated Red 0.0 10^3/ul 0.0 10^3/ul Blood Cells # Erythrocyte 48 mm/Hr Sedimentation Rate Sodium Level 143 mmol/L 144 mmol/L Potassium Level 3.8 mmol/L 4.2 mmol/L Chloride Level 105 mmol/L 107 mmol/L Carbon Dioxide 29 mmol/L 29 mmol/L Level Anion Gap 9 8 Blood Urea 11 mg/dl 17 mg/dl Nitrogen Creatinine 0.66 mg/dl 0.79 mg/dl Est Glomerular > 60 mL/min > 60 mL/min Filtrat Rate mL/min Glucose Level 120 mg/dl 111 mg/dl Hemoglobin A1c 5.4 % Calcium Level 8.7 mg/dl 9.3 mg/dl Phosphorus 3.6 mg/dl 5.0 mg/dl Level Magnesium Level 1.9 mg/dl 2.0 mg/dl Total Bilirubin 0.2 mg/dl Direct 0.00 mg/dl Bilirubin Indirect 0.2 mg/dl Bilirubin Aspartate Amino 22 IU/L Transf (AST/SGO T) Alanine 15 IU/L Aminotransferas e (ALT/SGPT) Alkaline 95 IU/L Phosphatase Total Protein 7.9 g/dl Albumin 3.8 g/dl Globulin 4.10 g/dl Albumin/Globuli 0.92 n Ratio Vitamin D 19.4 ng/ml 1,25-Dihydroxy Thyroid 2.500 MIU/L Stimulating Hormone (TSH) Free Thyroxine 1.15 ng/dl Triglycerides 126 mg/dl Level Cholesterol 173 mg/dl Level LDL 104 mg/dl Cholesterol, Calculated HDL Cholesterol 44 mg/dl Cholesterol/HDL 3.9 RATIO Ratio Assessment and Plan Assessment/Diagnosis Diagnosis Psychosis NOS Recommendation/Plan Discharge Disposition: Other Legal Status: Voluntary (Patient needs reevaluation, did not get adequate information, but does not meet criteria for 5150 hold) SHANIQUA TREJO NP Jun 06, 2019 11:02
[2019-06-06 14:02] VITALS: BP 134/74; PULSE 78; RESP 22
--- NOTE | 2019-06-06 14:22 | CONS ---
Assessment/Plan Assessment/Plan Hospital Course (Demo Recall) Alert looks comfortable eating lunch no fevers overnight WBC 9.1 no shift no bands ESR yesterday 48 BUN 17 creatinine 0.79 Antimicrobials: Vanco Zosyn Physical examination this is a well-developed middle-aged white man who looks older his age with a poor hygiene patient is in no distress head atraumatic normocephalic neck is supple chest rise symmetrical breath sounds clear heart S1-S2 abdomen soft bowel sounds present extremities with right lower extremity erythema also dressing. Skin patient has a very poor hygiene and smells Assessment: Right lower extremity cellulitis Homelessness Alcohol and nicotine abuse Plan: Patient is stable he is being seen by podiatry and psych teams, change Zosyn to Rocephin Consultation Date/Type/Reason Admit Date/Time Jun 05, 2019 at 12:03 Initial Consult Date Type of Consult id Date/Time of Note DATE: 06/06/19 TIME: 14:21 Exam/Review of Systems Exam Vitals Vital Signs Date Temp Pulse Resp B/P (MAP) Pulse Ox O2 O2 Flow FiO2 Time Delivery Rate 06/06/19 97.7 78 22 134/74 97 Room Air 14:02 (94) Intake and Output 06/05/19 06/05/19 06/06/19 1515:00 23:00 07:00 IntakeIntake Total 850 ml 650 ml OutputOutput Total 900 ml 1600 ml BalanceBalance -50 ml -950 ml Results Result Diagram: 06/06/19 0525 06/06/19 0525 Results 24hrs Laboratory Tests Test 06/05/19 15:17 06/05/19 15:23 06/06/19 05:25 C-Reactive Protein < 0.5 0.5 Procalcitonin 0.02 White Blood Count 8.7 # 9.1 Red Blood Count 4.58 L 4.54 L Hemoglobin 12.9 L 12.8 L Hematocrit 39.9 L 39.8 L Mean Corpuscular Volume 87.1 87.7 Mean Corpuscular Hemoglobin 28.2 L 28.2 L Mean Corpuscular Hemoglobin Concent 32.3 32.2 Red Cell Distribution Width 14.4 14.4 Platelet Count 514 H 532 H Mean Platelet Volume 8.1 8.1 Immature Granulocytes % 0.600 H 0.700 H Neutrophils % 64.6 60.2 Lymphocytes % 22.6 25.6 Monocytes % 7.5 8.6 Eosinophils % 4.0 4.1 Basophils % 0.7 0.8 Nucleated Red Blood Cells % 0.0 0.0 Immature Granulocytes # 0.050 H 0.060 H Neutrophils # 5.6 5.5 Lymphocytes # 2.0 2.3 Monocytes # 0.7 0.8 Eosinophils # 0.4 0.4 Basophils # 0.1 0.1 Nucleated Red Blood Cells # 0.0 0.0 Erythrocyte Sedimentation Rate 48 H Sodium Level 143 144 Potassium Level 3.8 4.2 Chloride Level 105 107 Carbon Dioxide Level 29 29 Anion Gap 9 8 Blood Urea Nitrogen 11 17 Creatinine 0.66 0.79 Est Glomerular Filtrat Rate mL/min > 60 > 60 Glucose Level 120 111 Hemoglobin A1c 5.4 Calcium Level 8.7 9.3 Phosphorus Level 3.6 5.0 H Magnesium Level 1.9 2.0 Total Bilirubin 0.2 Direct Bilirubin 0.00 Indirect Bilirubin 0.2 Aspartate Amino Transf (AST/SGOT) 22 Alanine Aminotransferase (ALT/SGPT) 15 Alkaline Phosphatase 95 Total Protein 7.9 Albumin 3.8 Globulin 4.10 H Albumin/Globulin Ratio 0.92 Vitamin D 1,25-Dihydroxy 19.4 L Thyroid Stimulating Hormone (TSH) 2.500 Free Thyroxine 1.15 Triglycerides Level 126 Cholesterol Level 173 LDL Cholesterol, Calculated 104 HDL Cholesterol 44 Cholesterol/HDL Ratio 3.9 Medications Medication Current Medications IV Flush (NS 3 ml) 3 ml PER PROTOCOL IV ; Start 06/05/19 at 14:30 Ondansetron HCl (Zofran Inj) 4 mg Q6H PRN IV NAUSEA/VOMITING; Start 06/05/19 at 14:30 Acetaminophen (Tylenol Tab) 650 mg Q6H PRN PO .PAIN 1-3 OR TEMP; Start 06/05/19 at 14:30 Acetaminophen/ Hydrocodone Bitart ([place] (5/325)) 1 tab Q6H PRN PO .MOD PAIN 4- 6; Start 06/05/19 at 14:30 Enoxaparin Sodium (Lovenox) 40 mg DAILY SC ; Start 06/06/19 at 09:00 Vancomycin HCl (Vanco Iv Per Pharmacy) VANCOMYCIN PER PHARMACY PER PROTOCOL XX ; Start 06/05/19 at 15:00 Piperacillin Sod/ Tazobactam Sod 100 ml @ 200 mls/hr Q6 IVPB Last administered on 06/06/19 12:52; Admin Dose 200 MLS/HR; Start 06/05/19 at 16:00 Chlordiazepoxide (Librium) 25 mg TID PO Last administered on 06/06/19 12:55; Admin Dose 25 MG; Start 06/05/19 at 16:00 Lorazepam (Ativan) 1 mg Q6H PRN IV Anxiety; Start 06/05/19 at 15:00 Vancomycin HCl 250 ml @ 125 mls/hr Q12H IVPB Last administered on 06/06/19 04:38; Admin Dose 125 MLS/HR; Start 06/06/19 at 05:00 Thiamine HCl (Vitamin B1) 100 mg DAILY PO Last administered on 06/06/19 09:10; Admin Dose 100 MG; Start 06/06/19 at 09:00 Multivitamins Therapeutic (Theragran) 1 tab DAILY PO Last administered on 06/06/19 09:10; Admin Dose 1 TAB; Start 06/06/19 at 09:00 Sodium Hypochlorite (Dakins Diluted ()) 1 applic DAILY TP Last administered on 06/06/19 09:10; Admin Dose 1 APPLIC; Start 06/06/19 at 09:00 Cholecalciferol (Vitamin D) 1,000 unit DAILY PO Last administered on 06/06/19 09:10; Admin Dose 1,000 UNIT; Start 06/06/19 at 09:00 Miscellaneous Information (*Rx Drug Level Order Reminder*) VANCO TROUGH @ 0,500 0500 ONCE XX ; Start 06/07/19 at 05:00; Stop 06/07/19 at 05:01 CHEMO LEE NP Jun 06, 2019 14:22
--- NOTE | 2019-06-06 14:30 | PN ---
Date/Time of Note Date/Time of Note DATE: 06/06/19 TIME: 14:28 Assessment/Plan VTE Prophylaxis Risk score (from Ns)>0 risk: 1 SCD applied (from Ns): No SCD contraindicated: other Pharmacological prophylaxis: LMWH Pharm contraindication: patient refusal Lines/Catheters IV Catheter Type (from [facility]): Saline Lock Urinary Cath still in place: No Assessment/Plan Hospital Course SUBJECTIVE: Continues to be selectively mute. OBJECTIVE: Physical Exam General: Adequately build 48 year-old male lying in bed in no apparent distress, looks disheveled. HEENT: Normocephalic, atraumatic. Eyes: Anicteric sclerae, conjunctivae clear. ENT: Nasal septum midline, oral mucosa is dry. Neck supple, no JVD noticed. Respiratory: Bilaterally diminished breath sounds. No use of accessory muscles of respiration. No adventitious breath sounds. Cardiovascular: S1, S2 heard. Regular rate and rhythm. Abdomen: Soft, nontender, and nondistended. Bowel sounds positive in all 4 quadrants. Genitourinary: Deferred. Extremities: No cyanosis, no clubbing. Right lower extremity circumferential erythema from the middle of the [place] to the ankle joint. Edema of the right ankle joint. Excessive exfoliation of the right lower extremity with dry scabs circumferentially. Peripheral pulses palpable. Neurologic: The patient is awake and alert. Unable to tell his name, age, his location, or any other personal details. Answers" I do not know" to all questions related to his identity. Labs & Vitals per chart ASSESSMENT & PLAN 48-year-old male who is apparently homeless with no details of his identity, medical, and social history, who presented to the emergency room with chief complaint of right lower extremity redness and pain, with evidence of underlying right lower extremity cellulitis, who was admitted to inpatient setting for further treatment and evaluation. 1. Right lower extremity cellulitis. Continue antimicrobials including coverage for MRSA. ID Following. Podiatry following. Arterial Doppler study negative for any significant arterial occlusion. Bilateral lower extremity venous Doppler study negative for any DVT. 2. Alcohol abuse. Continue the patient on vitamin supplements. Continue the patient on Librium taper. Continue the patient on PRN IV benzodiazepines for any active DTs. 3. Nicotine use. Cessation will be advised. Nicotine patch if the patient developed central symptoms. 4. Normocytic anemia. Most probably anemia chronic disease. Monitor H&H closely. 5. Homelessness. chore worker consult. 6. Incomplete database. Obtain social work consult. 7. Fluids, electrolytes, and nutrition. Regular diet. 8. DVT prophylaxis. Subcutaneous Lovenox (patient refusing). 9. Plan. Continue antimicrobials as per ID. Needs placement upon discharge. The patient was seen in collaboration with Dr. Hernandez. Result Diagram: 06/06/19 0525 06/06/19 0525 Results 24hrs Laboratory Tests Test 06/05/19 15:17 06/05/19 15:23 06/06/19 05:25 C-Reactive Protein < 0.5 0.5 Procalcitonin 0.02 White Blood Count 8.7 # 9.1 Red Blood Count 4.58 L 4.54 L Hemoglobin 12.9 L 12.8 L Hematocrit 39.9 L 39.8 L Mean Corpuscular Volume 87.1 87.7 Mean Corpuscular Hemoglobin 28.2 L 28.2 L Mean Corpuscular Hemoglobin Concent 32.3 32.2 Red Cell Distribution Width 14.4 14.4 Platelet Count 514 H 532 H Mean Platelet Volume 8.1 8.1 Immature Granulocytes % 0.600 H 0.700 H Neutrophils % 64.6 60.2 Lymphocytes % 22.6 25.6 Monocytes % 7.5 8.6 Eosinophils % 4.0 4.1 Basophils % 0.7 0.8 Nucleated Red Blood Cells % 0.0 0.0 Immature Granulocytes # 0.050 H 0.060 H Neutrophils # 5.6 5.5 Lymphocytes # 2.0 2.3 Monocytes # 0.7 0.8 Eosinophils # 0.4 0.4 Basophils # 0.1 0.1 Nucleated Red Blood Cells # 0.0 0.0 Erythrocyte Sedimentation Rate 48 H Sodium Level 143 144 Potassium Level 3.8 4.2 Chloride Level 105 107 Carbon Dioxide Level 29 29 Anion Gap 9 8 Blood Urea Nitrogen 11 17 Creatinine 0.66 0.79 Est Glomerular Filtrat Rate mL/min > 60 > 60 Glucose Level 120 111 Hemoglobin A1c 5.4 Calcium Level 8.7 9.3 Phosphorus Level 3.6 5.0 H Magnesium Level 1.9 2.0 Total Bilirubin 0.2 Direct Bilirubin 0.00 Indirect Bilirubin 0.2 Aspartate Amino Transf (AST/SGOT) 22 Alanine Aminotransferase (ALT/SGPT) 15 Alkaline Phosphatase 95 Total Protein 7.9 Albumin 3.8 Globulin 4.10 H Albumin/Globulin Ratio 0.92 Vitamin D 1,25-Dihydroxy 19.4 L Thyroid Stimulating Hormone (TSH) 2.500 Free Thyroxine 1.15 Triglycerides Level 126 Cholesterol Level 173 LDL Cholesterol, Calculated 104 HDL Cholesterol 44 Cholesterol/HDL Ratio 3.9 Exam/Review of Systems Exam Vitals Vital Signs Date Temp Pulse Resp B/P (MAP) Pulse Ox O2 O2 Flow FiO2 Time Delivery Rate 06/06/19 97.7 78 22 134/74 97 Room Air 14:02 (94) Intake and Output 06/05/19 06/05/19 06/06/19 1515:00 23:00 07:00 IntakeIntake Total 850 ml 650 ml OutputOutput Total 900 ml 1600 ml BalanceBalance -50 ml -950 ml Results Results 24hrs Laboratory Tests Test 06/05/19 15:17 06/05/19 15:23 06/06/19 05:25 C-Reactive Protein < 0.5 0.5 Procalcitonin 0.02 White Blood Count 8.7 # 9.1 Red Blood Count 4.58 L 4.54 L Hemoglobin 12.9 L 12.8 L Hematocrit 39.9 L 39.8 L Mean Corpuscular Volume 87.1 87.7 Mean Corpuscular Hemoglobin 28.2 L 28.2 L Mean Corpuscular Hemoglobin Concent 32.3 32.2 Red Cell Distribution Width 14.4 14.4 Platelet Count 514 H 532 H Mean Platelet Volume 8.1 8.1 Immature Granulocytes % 0.600 H 0.700 H Neutrophils % 64.6 60.2 Lymphocytes % 22.6 25.6 Monocytes % 7.5 8.6 Eosinophils % 4.0 4.1 Basophils % 0.7 0.8 Nucleated Red Blood Cells % 0.0 0.0 Immature Granulocytes # 0.050 H 0.060 H Neutrophils # 5.6 5.5 Lymphocytes # 2.0 2.3 Monocytes # 0.7 0.8 Eosinophils # 0.4 0.4 Basophils # 0.1 0.1 Nucleated Red Blood Cells # 0.0 0.0 Erythrocyte Sedimentation Rate 48 H Sodium Level 143 144 Potassium Level 3.8 4.2 Chloride Level 105 107 Carbon Dioxide Level 29 29 Anion Gap 9 8 Blood Urea Nitrogen 11 17 Creatinine 0.66 0.79 Est Glomerular Filtrat Rate mL/min > 60 > 60 Glucose Level 120 111 Hemoglobin A1c 5.4 Calcium Level 8.7 9.3 Phosphorus Level 3.6 5.0 H Magnesium Level 1.9 2.0 Total Bilirubin 0.2 Direct Bilirubin 0.00 Indirect Bilirubin 0.2 Aspartate Amino Transf (AST/SGOT) 22 Alanine Aminotransferase (ALT/SGPT) 15 Alkaline Phosphatase 95 Total Protein 7.9 Albumin 3.8 Globulin 4.10 H Albumin/Globulin Ratio 0.92 Vitamin D 1,25-Dihydroxy 19.4 L Thyroid Stimulating Hormone (TSH) 2.500 Free Thyroxine 1.15 Triglycerides Level 126 Cholesterol Level 173 LDL Cholesterol, Calculated 104 HDL Cholesterol 44 Cholesterol/HDL Ratio 3.9 Medications Medication Current Medications IV Flush (NS 3 ml) 3 ml PER PROTOCOL IV ; Start 06/05/19 at 14:30 Ondansetron HCl (Zofran Inj) 4 mg Q6H PRN IV NAUSEA/VOMITING; Start 06/05/19 at 14:30 Acetaminophen (Tylenol Tab) 650 mg Q6H PRN PO .PAIN 1-3 OR TEMP; Start 06/05/19 at 14:30 Acetaminophen/ Hydrocodone Bitart ([place] (5/325)) 1 tab Q6H PRN PO .MOD PAIN 4- 6; Start 06/05/19 at 14:30 Enoxaparin Sodium (Lovenox) 40 mg DAILY SC ; Start 06/06/19 at 09:00 Vancomycin HCl (Vanco Iv Per Pharmacy) VANCOMYCIN PER PHARMACY PER PROTOCOL XX ; Start 06/05/19 at 15:00 Piperacillin Sod/ Tazobactam Sod 100 ml @ 200 mls/hr Q6 IVPB Last administered on 06/06/19at 12:52; Admin Dose 200 MLS/HR; Start 06/05/19 at 16:00 Chlordiazepoxide (Librium) 25 mg TID PO Last administered on 06/06/19at 12:55; Admin Dose 25 MG; Start 06/05/19 at 16:00 Lorazepam (Ativan) 1 mg Q6H PRN IV Anxiety; Start 06/05/19 at 15:00 Vancomycin HCl 250 ml @ 125 mls/hr Q12H IVPB Last administered on 06/06/19at 04:38; Admin Dose 125 MLS/HR; Start 06/06/19 at 05:00 Thiamine HCl (Vitamin B1) 100 mg DAILY PO Last administered on 06/06/19 09:10; Admin Dose 100 MG; Start 06/06/19 at 09:00 Multivitamins Therapeutic (Theragran) 1 tab DAILY PO Last administered on 06/06/19 09:10; Admin Dose 1 TAB; Start 06/06/19 at 09:00 Sodium Hypochlorite (Dakins Diluted ()) 1 applic DAILY TP Last administered on 06/06/19 09:10; Admin Dose 1 APPLIC; Start 06/06/19 at 09:00 Cholecalciferol (Vitamin D) 1,000 unit DAILY PO Last administered on 06/06/19 09:10; Admin Dose 1,000 UNIT; Start 06/06/19 at 09:00 Miscellaneous Information (*Rx Drug Level Order Reminder*) VANCO TROUGH @ 0,500 0500 ONCE XX ; Start 06/07/19 at 05:00; Stop 06/07/19 at 05:01 KAILYN GILBERT NP Jun 06, 2019 14:30
[2019-06-06] MEDS: CEFTRIAXONE 1 GM/50 ML (PMX) 50 ML IVPB SCH (14:59)
[2019-06-06 18:52] VITALS: BP 152/97; PULSE 97; RESP 20
[2019-06-06 21:03] VITALS: BP 141/79; PULSE 79; RESP 20
[2019-06-07 01:49] VITALS: BP 144/79; PULSE 84; RESP 20
[2019-06-07] MEDS: VANCOMYCIN 1 GM 250 ML IVPB SCH ×3 (06:10→21:56)
[2019-06-07 08:11] VITALS: BP 144/81; PULSE 80; RESP 15
[2019-06-07] MEDS: CHOLECALCIFEROL 1,000 UNIT TAB PO SCH (08:39)
[2019-06-07] MEDS: DAKINS 0.0125%(1/40) 473 ML SOLUTION TP SCH (08:39)
[2019-06-07] MEDS: CHLORDIAZEPOXIDE 25 MG CAP PO SCH (08:39)
[2019-06-07] MEDS: MULTIVITAMINS THERAPEUTIC TAB PO SCH (08:39)
[2019-06-07] MEDS: THIAMINE 100 MG TAB PO SCH (08:39)
[2019-06-07] MEDS: ENOXAPARIN 40 MG/0.4 ML SYG SC SCH (08:41)
--- NOTE | 2019-06-07 12:10 | PN ---
Date/Time of Note Date/Time of Note DATE: 06/07/19 TIME: 12:10 Assessment/Plan VTE Prophylaxis Risk score (from Ns)>0 risk: 3 SCD applied (from Ns): No SCD contraindicated: other Pharmacological prophylaxis: LMWH Lines/Catheters IV Catheter Type (from [facility] Saline Lock Urinary Cath still in place: No Assessment/Plan Hospital Course SUBJECTIVE: Continues to be selectively mute. OBJECTIVE: Physical Exam General: Adequately build 48 year-old male lying in bed in no apparent distress, looks disheveled. HEENT: Normocephalic, atraumatic. Eyes: Anicteric sclerae, conjunctivae clear. ENT: Nasal septum midline, oral mucosa is dry. Neck supple, no JVD noticed. Respiratory: Bilaterally diminished breath sounds. No use of accessory muscles o f respiration. No adventitious breath sounds. Cardiovascular: S1, S2 heard. Regular rate and rhythm. Abdomen: Soft, nontender, and nondistended. Bowel sounds positive in all 4 quadrants. Genitourinary: Deferred. Extremities: No cyanosis, no clubbing. Right lower extremity circumferential erythema from the middle of the [place] to the ankle joint. Edema of the right ankle joint. Excessive exfoliation of the right lower extremity with dry scabs circumferentially. Peripheral pulses palpable. Neurologic: The patient is awake and alert. Unable to tell his name, age, his location, or any other personal details. Answers" I do not know" to all questions related to his identity. Labs & Vitals per chart ASSESSMENT & PLAN 48-year-old male who is apparently homeless with no details of his identity, medical, and social history, who presented to the emergency room with chief complaint of right lower extremity redness and pain, with evidence of underlying right lower extremity cellulitis, who was admitted to inpatient setting for further treatment and evaluation. 1. Right lower extremity cellulitis. Continue antimicrobials including coverage for MRSA. ID Following. Podiatry following. Arterial Doppler study negative for any significant arterial occlusion. Bilateral lower extremity venous Doppler study negative for any DVT. 2. Alcohol abuse. Continue the patient on vitamin supplements. Continue the patient on Librium taper. Continue the patient on PRN IV benzodiazepines for any active DTs. 3. Nicotine use. Cessation will be advised. Nicotine patch if the patient developed central symptoms. 4. Normocytic anemia. Most probably anemia chronic disease. Monitor H&H closely. 5. Homelessness. bilingual patient support caseworker consult. 6. Incomplete database. Obtain social work consult. 7. Fluids, electrolytes, and nutrition. Regular diet. 8. DVT prophylaxis. Subcutaneous Lovenox (patient refusing). 9. Plan. Continue antimicrobials as per ID. Needs placement upon discharge. The patient was seen in collaboration with Dr. Hernandez. Result Diagram: 06/06/19 0525 06/06/19 0525 Results 24hrs Laboratory Tests Test 06/07/19 04:24 Vancomycin Level Trough 5.8 L Exam/Review of Systems Exam Vitals Vital Signs Date Temp Pulse Resp B/P (MAP) Pulse Ox O2 O2 Flow FiO2 Time Delivery Rate 06/07/19 97.7 80 15 144/81 93 Room Air 08:11 (102) Intake and Output 06/06/19 06/06/19 06/07/19 1414:59 22:59 06:59 IntakeIntake Total 800 ml 898 ml OutputOutput Total 1000 ml 1200 ml 800 ml BalanceBalance -200 ml -302 ml -800 ml Results Results 24hrs Laboratory Tests Test 06/07/19 04:24 Vancomycin Level Trough 5.8 L Medications Medication Current Medications IV Flush (NS 3 ml) 3 ml PER PROTOCOL IV ; Start 06/05/19 at 14:30 Ondansetron HCl (Zofran Inj) 4 mg Q6H PRN IV NAUSEA/VOMITING; Start 06/05/19 at 14:30 Acetaminophen (Tylenol Tab) 650 mg Q6H PRN PO .PAIN 1-3 OR TEMP; Start 06/05/19 at 14:30 Acetaminophen/ Hydrocodone Bitart ([place] (5/325)) 1 tab Q6H PRN PO .MOD PAIN 4- 6; Start 06/05/19 at 14:30 Enoxaparin Sodium (Lovenox) 40 mg DAILY SC Last administered on 06/07/19at 08:41; Admin Dose 40 MG; Start 06/06/19 at 09:00 Vancomycin HCl (Vanco Iv Per Pharmacy) VANCOMYCIN PER PHARMACY PER PROTOCOL XX ; Start 06/05/19 at 15:00 Chlordiazepoxide (Librium) 25 mg TID PO Last administered on 06/07/19at 08:39; Admin Dose 25 MG; Start 06/05/19 at 16:00 Lorazepam (Ativan) 1 mg Q6H PRN IV Anxiety; Start 06/05/19 at 15:00 Thiamine HCl (Vitamin B1) 100 mg DAILY PO Last administered on 06/07/19 08:39; Admin Dose 100 MG; Start 06/06/19 at 09:00 Multivitamins Therapeutic (Theragran) 1 tab DAILY PO Last administered on 06/07/19 08:39; Admin Dose 1 TAB; Start 06/06/19 at 09:00 Sodium Hypochlorite (Dakins Diluted ()) 1 applic DAILY TP Last administered on 06/07/19 08:39; Admin Dose 1 APPLIC; Start 06/06/19 at 09:00 Cholecalciferol (Vitamin D) 1,000 unit DAILY PO Last administered on 06/07/19 08:39; Admin Dose 1,000 UNIT; Start 06/06/19 at 09:00 Ceftriaxone Sodium 50 ml @ 100 mls/hr Q24H IVPB Last administered on 06/06/19 14:59; Admin Dose 100 MLS/HR; Start 06/06/19 at 14:30 Vancomycin HCl 250 ml @ 125 mls/hr Q8H IVPB Last administered on 06/07/19 06:10; Admin Dose 125 MLS/HR; Start 06/07/19 at 06:00 Miscellaneous Information (*Rx Drug Level Order Reminder*) VANCOMYCIN TROUGH LEVEL 0500 ONCE XX ; Start 06/08/19 at 05:00; Stop 06/08/19 at 05:01 KAILYN GILBERT NP Jun 07, 2019 12:10
--- NOTE | 2019-06-07 13:04 | CONS ---
Assessment/Plan Assessment/Plan Hospital Course (Demo Recall) Alert looks comfortable Antimicrobials: Allen Martinez Physical examination this is a well-developed middle-aged white man who looks older his age with a poor hygiene patient is in no distress head atraumatic normocephalic neck is supple chest rise symmetrical breath sounds clear heart S1-S2 abdomen soft bowel sounds present extremities with right lower extremity erythema also dressing. Skin patient has a very poor hygiene and smells Assessment: Right lower extremity cellulitis Homelessness Alcohol and nicotine abuse Plan: Patient is stable, continue present care, f/u podiatry rec-s, anticipate downgrading to PO Bactrim soon Consultation Date/Type/Reason Admit Date/Time Jun 05, 2019 at 12:03 Initial Consult Date Type of Consult id Date/Time of Note DATE: 06/07/19 TIME: 13:03 Exam/Review of Systems Exam Vitals Vital Signs Date Temp Pulse Resp B/P (MAP) Pulse Ox O2 O2 Flow FiO2 Time Delivery Rate 06/07/19 97.7 80 15 144/81 93 Room Air 08:11 (102) Intake and Output 06/06/19 06/06/19 06/07/19 1515:00 23:00 07:00 IntakeIntake Total 800 ml 898 ml OutputOutput Total 1000 ml 1200 ml 800 ml BalanceBalance -200 ml -302 ml -800 ml Results Result Diagram: 06/06/19 0525 06/06/19 0525 Results 24hrs Laboratory Tests Test 06/07/19 04:24 Vancomycin Level Trough 5.8 L Medications Medication Current Medications IV Flush (NS 3 ml) 3 ml PER PROTOCOL IV ; Start 06/05/19 at 14:30 Ondansetron HCl (Zofran Inj) 4 mg Q6H PRN IV NAUSEA/VOMITING; Start 06/05/19 at 14:30 Acetaminophen (Tylenol Tab) 650 mg Q6H PRN PO .PAIN 1-3 OR TEMP; Start 06/05/19 at 14:30 Acetaminophen/ Hydrocodone Bitart ([place] (5/325)) 1 tab Q6H PRN PO .MOD PAIN 4- 6; Start 06/05/19 at 14:30 Enoxaparin Sodium (Lovenox) 40 mg DAILY SC Last administered on 06/07/19at 08:41; Admin Dose 40 MG; Start 06/06/19 at 09:00 Vancomycin HCl (Vanco Iv Per Pharmacy) VANCOMYCIN PER PHARMACY PER PROTOCOL XX ; Start 06/05/19 at 15:00 Lorazepam (Ativan) 1 mg Q6H PRN IV Anxiety; Start 06/05/19 at 15:00 Thiamine HCl (Vitamin B1) 100 mg DAILY PO Last administered on 06/07/19 08:39; Admin Dose 100 MG; Start 06/06/19 at 09:00 Multivitamins Therapeutic (Theragran) 1 tab DAILY PO Last administered on 06/07/19 08:39; Admin Dose 1 TAB; Start 06/06/19 at 09:00 Sodium Hypochlorite (Dakins Diluted ()) 1 applic DAILY TP Last administered on 06/07/19 08:39; Admin Dose 1 APPLIC; Start 06/06/19 at 09:00 Cholecalciferol (Vitamin D) 1,000 unit DAILY PO Last administered on 06/07/19 08:39; Admin Dose 1,000 UNIT; Start 06/06/19 at 09:00 Ceftriaxone Sodium 50 ml @ 100 mls/hr Q24H IVPB Last administered on 06/06/19 14:59; Admin Dose 100 MLS/HR; Start 06/06/19 at 14:30 Vancomycin HCl 250 ml @ 125 mls/hr Q8H IVPB Last administered on 06/07/19at 06:10; Admin Dose 125 MLS/HR; Start 06/07/19 at 06:00 Miscellaneous Information (*Rx Drug Level Order Reminder*) VANCOMYCIN TROUGH LEVEL 0500 ONCE XX ; Start 06/08/19 at 05:00; Stop 06/08/19 at 05:01 Chlordiazepoxide (Librium) 10 mg TID PO ; Start 06/07/19 at 13:00 CHEMO LEE NP Jun 07, 2019 13:04
[2019-06-07] MEDS: CHLORDIAZEPOXIDE 5 MG CAP PO SCH ×2 (13:33→20:46)
[2019-06-07] MEDS: CEFTRIAXONE 1 GM/50 ML (PMX) 50 ML IVPB SCH (13:33)
[2019-06-07 13:48] VITALS: BP 147/89; PULSE 78; RESP 17
[2019-06-07 20:29] VITALS: BP 134/81; PULSE 82; RESP 16
[2019-06-08 02:09] VITALS: BP 139/96; PULSE 75; RESP 16
[2019-06-08 02:33] VITALS: BP 139/96; PULSE 75; RESP 16
[2019-06-08] MEDS: VANCOMYCIN 1 GM 250 ML IVPB SCH ×3 (06:50→22:38)
[2019-06-08 07:30] VITALS: BP 158/101; PULSE 77; RESP 15
[2019-06-08] MEDS: MULTIVITAMINS THERAPEUTIC TAB PO SCH (08:54)
[2019-06-08] MEDS: CHOLECALCIFEROL 1,000 UNIT TAB PO SCH (08:54)
[2019-06-08] MEDS: THIAMINE 100 MG TAB PO SCH (08:54)
[2019-06-08] MEDS: CHLORDIAZEPOXIDE 5 MG CAP PO SCH ×3 (08:54→20:26)
[2019-06-08] MEDS: DAKINS 0.0125%(1/40) 473 ML SOLUTION TP SCH (08:54)
[2019-06-08] MEDS: ENOXAPARIN 40 MG/0.4 ML SYG SC SCH (08:55)
[2019-06-08] MEDS: HYDROCODONE/APAP (5/325) TAB PO PRN (08:56)
--- NOTE | 2019-06-08 11:03 | CONS ---
Assessment/Plan Assessment/Plan Hospital Course (Demo Recall) No acute changes, looks comfortable, no fevers Antimicrobials: Allen Martinez Physical examination this is a well-developed middle-aged white man who looks older his age with a poor hygiene patient is in no distress head atraumatic normocephalic neck is supple chest rise symmetrical breath sounds clear heart S1-S2 abdomen soft bowel sounds present extremities with right lower extremity erythema also dressing. Skin patient has a very poor hygiene and smells Assessment: Right lower extremity cellulitis Homelessness Alcohol and nicotine abuse Plan: Stable, continue abx, f/u podiatry rec-s ?debridement in OR per note Consultation Date/Type/Reason Admit Date/Time Jun 05, 2019 at 12:03 Initial Consult Date Type of Consult id Date/Time of Note DATE: 06/08/19 TIME: 11:02 Exam/Review of Systems Exam Vitals Vital Signs Date Temp Pulse Resp B/P (MAP) Pulse Ox O2 O2 Flow FiO2 Time Delivery Rate 06/08/19 97.5 77 15 158/101 93 Room Air 07:30 (120) Intake and Output 06/07/19 06/07/19 06/08/19 1515:00 23:00 07:00 IntakeIntake Total 300 ml 890 ml 700 ml OutputOutput Total 600 ml 1100 ml 1000 ml BalanceBalance -300 ml -210 ml -300 ml Results Result Diagram: 06/06/19 0525 06/06/19 0525 Results 24hrs Laboratory Tests Test 06/08/19 05:12 Vancomycin Level Trough 12.0 Medications Medication Current Medications IV Flush (NS 3 ml) 3 ml PER PROTOCOL IV ; Start 06/05/19 at 14:30 Ondansetron HCl (Zofran Inj) 4 mg Q6H PRN IV NAUSEA/VOMITING; Start 06/05/19 at 14:30 Acetaminophen (Tylenol Tab) 650 mg Q6H PRN PO .PAIN 1-3 OR TEMP; Start 06/05/19 at 14:30 Acetaminophen/ Hydrocodone Bitart ([place] (5/325)) 1 tab Q6H PRN PO .MOD PAIN 4- 6 Last administered on 06/08/19at 08:56; Admin Dose 1 TAB; Start 06/05/19 at 14:30 Enoxaparin Sodium (Lovenox) 40 mg DAILY SC Last administered on 06/08/19 08:55; Admin Dose 40 MG; Start 06/06/19 at 09:00 Vancomycin HCl (Vanco Iv Per Pharmacy) VANCOMYCIN PER PHARMACY PER PROTOCOL XX ; Start 06/05/19 at 15:00 Lorazepam (Ativan) 1 mg Q6H PRN IV Anxiety; Start 06/05/19 at 15:00 Thiamine HCl (Vitamin B1) 100 mg DAILY PO Last administered on 06/08/19 08:54; Admin Dose 100 MG; Start 06/06/19 at 09:00 Multivitamins Therapeutic (Theragran) 1 tab DAILY PO Last administered on 06/08/19 08:54; Admin Dose 1 TAB; Start 06/06/19 at 09:00 Sodium Hypochlorite (Dakins Diluted ()) 1 applic DAILY TP Last administered on 06/08/19 08:54; Admin Dose 1 APPLIC; Start 06/06/19 at 09:00 Cholecalciferol (Vitamin D) 1,000 unit DAILY PO Last administered on 06/08/19 08:54; Admin Dose 1,000 UNIT; Start 06/06/19 at 09:00 Ceftriaxone Sodium 50 ml @ 100 mls/hr Q24H IVPB Last administered on 06/07/19 13:33; Admin Dose 100 MLS/HR; Start 06/06/19 at 14:30 Vancomycin HCl 250 ml @ 125 mls/hr Q8H IVPB Last administered on 06/08/19 06:50; Admin Dose 125 MLS/HR; Start 06/07/19 at 06:00 Chlordiazepoxide (Librium) 10 mg TID PO Last administered on 06/08/19 08:54; Admin Dose 10 MG; Start 06/07/19 at 13:00 CHEMO LEE NP Jun 08, 2019 11:03
--- NOTE | 2019-06-08 11:34 | CONS ---
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 Daily irrigation with dakins, application of betadine 4x4 gauze and wrap with kerlix. Wounds are responding to local wound care at this time. No plan for OR procedures. Wound cultures showing mixed gram neg rods and gram pos cocci. Antibiotics per recommendations. Patient would benefit from SNF placement to receive local wound care. Consultation Date/Type/Reason Admit Date/Time Jun 05, 2019 at 12:03 Initial Consult Date Date/Time of Note DATE: 06/08/19 TIME: 11:33 24 HR Interval Summary Free Text/Dictation No acute events overnight. Exam/Review of Systems Exam Vitals Vital Signs Date Temp Pulse Resp B/P (MAP) Pulse Ox O2 O2 Flow FiO2 Time Delivery Rate 06/08/19 97.5 77 15 158/101 93 Room Air 07:30 (120) Intake and Output 06/07/19 06/07/19 06/08/19 1515:00 23:00 07:00 IntakeIntake Total 300 ml 890 ml 700 ml OutputOutput Total 600 ml 1100 ml 1000 ml BalanceBalance -300 ml -210 ml -300 ml Exam Palpable pedal pulses Protective sensations intact Mycotic thickened toe nails Patient's feet are covered in dry dirt Right lower extremity with diffuse erythema Right lower extremity dorsal foot ulceration granular with dry eschar 2.7 x 2.8 x 0.2cm, unable to probe to bone Right lateral and anterior leg ulcer which measures 4 x 8 x 0.2cm granular with areas of epithelialization and dry eschar unable to probe to bone. No purulent discharge appreciated Overall unkempt appearance. Muscle strength 5/5 in all compartments of the foot. Results Result Diagram: 06/06/19 0525 06/06/19 0525 Results 24hrs Laboratory Tests Test 06/08/19 05:12 Vancomycin Level Trough 12.0 Medications Medication Current Medications IV Flush (NS 3 ml) 3 ml PER PROTOCOL IV ; Start 06/05/19 at 14:30 Ondansetron HCl (Zofran Inj) 4 mg Q6H PRN IV NAUSEA/VOMITING; Start 06/05/19 at 14:30 Acetaminophen (Tylenol Tab) 650 mg Q6H PRN PO .PAIN 1-3 OR TEMP; Start 06/05/19 at 14:30 Acetaminophen/ Hydrocodone Bitart ([place] (5/325)) 1 tab Q6H PRN PO .MOD PAIN 4- 6 Last administered on 06/08/19 08:56; Admin Dose 1 TAB; Start 06/05/19 at 14:30 Enoxaparin Sodium (Lovenox) 40 mg DAILY SC Last administered on 06/08/19 08:55; Admin Dose 40 MG; Start 06/06/19 at 09:00 Vancomycin HCl (Vanco Iv Per Pharmacy) VANCOMYCIN PER PHARMACY PER PROTOCOL XX ; Start 06/05/19 at 15:00 Lorazepam (Ativan) 1 mg Q6H PRN IV Anxiety; Start 06/05/19 at 15:00 Thiamine HCl (Vitamin B1) 100 mg DAILY PO Last administered on 06/08/19 08:54; Admin Dose 100 MG; Start 06/06/19 at 09:00 Multivitamins Therapeutic (Theragran) 1 tab DAILY PO Last administered on 06/08/19 08:54; Admin Dose 1 TAB; Start 06/06/19 at 09:00 Sodium Hypochlorite (Dakins Diluted (40)) 1 applic DAILY TP Last administered on 06/08/19 08:54; Admin Dose 1 APPLIC; Start 06/06/19 at 09:00 Cholecalciferol (Vitamin D) 1,000 unit DAILY PO Last administered on 06/08/19 08:54; Admin Dose 1,000 UNIT; Start 06/06/19 at 09:00 Ceftriaxone Sodium 50 ml @ 100 mls/hr Q24H IVPB Last administered on 06/07/19 13:33; Admin Dose 100 MLS/HR; Start 06/06/19 at 14:30 Vancomycin HCl 250 ml @ 125 mls/hr Q8H IVPB Last administered on 06/08/19 06:50; Admin Dose 125 MLS/HR; Start 06/07/19 at 06:00 Chlordiazepoxide (Librium) 10 mg TID PO Last administered on 06/08/19 08:54; Admin Dose 10 MG; Start 06/07/19 at 13:00 RODRIGUEZ CHILDRESS DPM Jun 08, 2019 11:34
[2019-06-08] MEDS: CEFTRIAXONE 1 GM/50 ML (PMX) 50 ML IVPB SCH (13:37)
[2019-06-08 13:43] VITALS: BP 141/98; PULSE 70; RESP 16
--- NOTE | 2019-06-08 15:32 | PN ---
Date/Time of Note Date/Time of Note DATE: 06/08/19 TIME: 15:25 Assessment/Plan VTE Prophylaxis Risk score (from Ns)>0 risk: 3 SCD applied (from Ns): No SCD contraindicated: other Pharmacological prophylaxis: LMWH Lines/Catheters IV Catheter Type (from [facility]): Peripheral IV Urinary Cath still in place: No Assessment/Plan Hospital Course 1. Right lower extremity cellulitis. Continue abx per ID consult Podiatry following - continue with wound care Arterial Doppler study negative for any significant arterial occlusion. Bilateral lower extremity venous Doppler study negative for any DVT. 2. Alcohol abuse. on vitamin supplement Continue the patient on Librium taper. Benzodiazepine as needed for seizure 3. Nicotine use. cessation to be advised 4. Normocytic anemia. Likely of chronic disease. Monitor H&H. 5. Homelessness. bench worker apprentice consult following 6. Incomplete database. Social work consult following Disposition and plan. Continue with antibiotics and wound care. Patient is reportedly homeless. Reports some right-sided weakness. Patient is unable to tell if he fell. Patient remains nonverbal at present. Will get CT scan of the head. Check right arm imaging as well. Discussed POC with Dr. Araya Result Diagram: 06/06/1925 06/06/19 0525 Results 24hrs Laboratory Tests Test 06/08/19 05:12 Vancomycin Level Trough 12.0 Subjective 24 Hr Interval Summary Free Text/Dictation alert, but appears that patient does not want to speak during visit Exam/Review of Systems Exam Vitals Vital Signs Date Temp Pulse Resp B/P (MAP) Pulse Ox O2 O2 Flow FiO2 Time Delivery Rate 06/08/19 98.3 70 16 141/98 94 Room Air 13:43 (112) Intake and Output 06/07/19 06/07/19 06/08/19 1515:00 23:00 07:00 IntakeIntake Total 300 ml 890 ml 700 ml OutputOutput Total 600 ml 1100 ml 1000 ml BalanceBalance -300 ml -210 ml -300 ml Constitutional: alert Psych: No nl mood/affect Respiratory: other (no obvious wheezing/rhonchi) Cardiovascular: other (regular rate ) Gastrointestinal: soft, non-tender Musculoskeletal: other (right upper extremity weakness ) Neurological: No nl mental status, No nl speech Skin: other (right lower extremity cellulitic wound ) Results Results 24hrs Laboratory Tests Test 06/08/19 05:12 Vancomycin Level Trough 12.0 Medications Medication Current Medications IV Flush (NS 3 ml) 3 ml PER PROTOCOL IV ; Start 06/05/19 at 14:30 Ondansetron HCl (Zofran Inj) 4 mg Q6H PRN IV NAUSEA/VOMITING; Start 06/05/19 at 14:30 Acetaminophen (Tylenol Tab) 650 mg Q6H PRN PO .PAIN 1-3 OR TEMP; Start 06/05/19 at 14:30 Acetaminophen/ Hydrocodone Bitart ([place] (5/325)) 1 tab Q6H PRN PO .MOD PAIN 4- 6 Last administered on 06/08/19 08:56; Admin Dose 1 TAB; Start 06/05/19 at 14:30 Enoxaparin Sodium (Lovenox) 40 mg DAILY SC Last administered on 06/08/19 08:55; Admin Dose 40 MG; Start 06/06/19 at 09:00 Vancomycin HCl (Vanco Iv Per Pharmacy) VANCOMYCIN PER PHARMACY PER PROTOCOL XX ; Start 06/05/19 at 15:00 Lorazepam (Ativan) 1 mg Q6H PRN IV Anxiety; Start 06/05/19 at 15:00 Thiamine HCl (Vitamin B1) 100 mg DAILY PO Last administered on 06/08/19 08:54; Admin Dose 100 MG; Start 06/06/19 at 09:00 Multivitamins Therapeutic (Theragran) 1 tab DAILY PO Last administered on 06/08/19 08:54; Admin Dose 1 TAB; Start 06/06/19 at 09:00 Sodium Hypochlorite (Dakins Diluted ()) 1 applic DAILY TP Last administered on 06/08/19 08:54; Admin Dose 1 APPLIC; Start 06/06/19 at 09:00 Cholecalciferol (Vitamin D) 1,000 unit DAILY PO Last administered on 06/08/19 08:54; Admin Dose 1,000 UNIT; Start 06/06/19 at 09:00 Ceftriaxone Sodium 50 ml @ 100 mls/hr Q24H IVPB Last administered on 06/08/19 13:37; Admin Dose 100 MLS/HR; Start 06/06/19 at 14:30 Vancomycin HCl 250 ml @ 125 mls/hr Q8H IVPB Last administered on 06/08/19 14:30; Admin Dose 125 MLS/HR; Start 06/07/19 at 06:00 Chlordiazepoxide (Librium) 10 mg TID PO Last administered on 06/08/19at 13:37; Admin Dose 10 MG; Start 06/07/19 at 13:00 KATY PATTERSON NP Jun 08, 2019 15:32
[2019-06-08 19:40] VITALS: BP 159/95; PULSE 85; RESP 16
[2019-06-09 01:43] VITALS: BP 138/78; PULSE 81; RESP 18
[2019-06-09] MEDS: VANCOMYCIN 1 GM 250 ML IVPB SCH (06:18)
[2019-06-09 07:54] VITALS: BP 142/91; PULSE 85; RESP 18
[2019-06-09] MEDS: MULTIVITAMINS THERAPEUTIC TAB PO SCH (08:39)
[2019-06-09] MEDS: THIAMINE 100 MG TAB PO SCH (08:39)
[2019-06-09] MEDS: DAKINS 0.0125%(1/40) 473 ML SOLUTION TP SCH (08:39)
[2019-06-09] MEDS: CHOLECALCIFEROL 1,000 UNIT TAB PO SCH (08:39)
[2019-06-09] MEDS: CHLORDIAZEPOXIDE 5 MG CAP PO SCH ×3 (08:39→21:04)
[2019-06-09] MEDS: ENOXAPARIN 40 MG/0.4 ML SYG SC SCH (08:40)
[2019-06-09] MEDS: TRIMETHOPRIM/SULFAMETHOX (DS) TAB PO SCH ×2 (11:38→21:04)
--- NOTE | 2019-06-09 11:54 | PN ---
Date/Time of Note Date/Time of Note DATE: 06/09/19 TIME: 11:38 Assessment/Plan VTE Prophylaxis Risk score (from Ns)>0 risk: 2 SCD applied (from [facility]): No SCD contraindicated: other Pharmacological prophylaxis: LMWH Lines/Catheters IV [facility] (from [facility] Saline Lock Urinary Cath still in place: No Assessment/Plan Hospital Course 1. Right lower extremity cellulitis. Continue abx per ID consult wound culture: WOUND CULTURE Final Organism 1 STAPHYLOCOCCUS AUREUS QUANTITY 1+ Organism 2 PROTEUS MIRABILIS QUANTITY SCANT GROWTH Organism 3 CORYNEBACTERIUM SPECIES QUANTITY 1+ Podiatry following - continue with wound care Arterial Doppler study negative for any significant arterial occlusion. Bilateral lower extremity venous Doppler study negative for any DVT. 2. Alcohol abuse. on vitamin supplement Continue the patient on Librium taper. Benzodiazepine as needed for seizure 3. Nicotine use. cessation advised 4. Normocytic anemia. Likely of chronic disease. Monitor H&H. 5. Homelessness. balcony worker consult following 6. Incomplete database. Social work consult following 7. Reported right side weakness CT brain: - No acute intracranial hemorrhage nor mass effect. 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 MRI brain has improved sensitivity for recent infarct or subtle lesion. Right shoulder xray: - No displaced fracture identified. - Diminutive distal clavicle with adjacent osseous fragment may be postsurgical / traumatic Will get PT eval Disposition and plan. Will get PT/OT evaluation. Continue with antibiotics. Case management to follow for possible placement. Discussed POC with Dr. Araya Result Diagram: 06/06/19 0525 06/09/19 0413 Results 24hrs Laboratory Tests Test 06/09/19 04:13 Blood Urea Nitrogen 22 H Creatinine 0.78 Subjective 24 Hr Interval Summary Free Text/Dictation Patient alert. More communicative today. Denies any pain. Exam/Review of Systems Exam Vitals Vital Signs Date Temp Pulse Resp B/P (MAP) Pulse Ox O2 O2 Flow FiO2 Time Delivery Rate 06/09/19 98.0 85 18 142/91 95 Room Air 07:54 (108) Intake and Output 06/08/19 06/08/19 06/09/19 1515:00 23:00 07:00 IntakeIntake Total 300 ml 1010 ml 980 ml OutputOutput Total 800 ml 500 ml BalanceBalance 300 ml 210 ml 480 ml Exam Constitutional: alert Psych: No nl mood/affect Respiratory: other (no obvious wheezing/rhonchi) Cardiovascular: other (regular rate ) Gastrointestinal: soft, non-tender Musculoskeletal: other (right upper extremity weakness ) Neurological: No nl mental status, No nl speech Skin: other (right lower extremity cellulitic wound ) Results Results 24hrs Laboratory Tests Test 06/09/19 04:13 Blood Urea Nitrogen 22 H Creatinine 0.78 Medications Medication Current Medications IV Flush (NS 3 ml) 3 ml PER PROTOCOL IV ; Start 06/05/19 at 14:30 Ondansetron HCl (Zofran Inj) 4 mg Q6H PRN IV NAUSEA/VOMITING; Start 06/05/19 at 14:30 Acetaminophen (Tylenol Tab) 650 mg Q6H PRN PO .PAIN 1-3 OR TEMP; Start 06/05/19 at 14:30 Acetaminophen/ Hydrocodone Bitart ([place] (5/325)) 1 tab Q6H PRN PO .MOD PAIN 4- 6 Last administered on 06/08/19at 08:56; Admin Dose 1 TAB; Start 06/05/19 at 14:30 Enoxaparin Sodium (Lovenox) 40 mg DAILY SC Last administered on 06/09/19at 08:40; Admin Dose 40 MG; Start 06/06/19 at 09:00 Lorazepam (Ativan) 1 mg Q6H PRN IV Anxiety; Start 06/05/19 at 15:00 Thiamine HCl (Vitamin B1) 100 mg DAILY PO Last administered on 06/09/19 08:39; Admin Dose 100 MG; Start 06/06/19 at 09:00 Multivitamins Therapeutic (Theragran) 1 tab DAILY PO Last administered on 06/09/19 08:39; Admin Dose 1 TAB; Start 06/06/19 at 09:00 Sodium Hypochlorite (Dakins Diluted ()) 1 applic DAILY TP Last administered on 06/09/19 08:39; Admin Dose 1 APPLIC; Start 06/06/19 at 09:00 Cholecalciferol (Vitamin D) 1,000 unit DAILY PO Last administered on 06/09/19 08:39; Admin Dose 1,000 UNIT; Start 06/06/19 at 09:00 Ceftriaxone Sodium 50 ml @ 100 mls/hr Q24H IVPB Last administered on 7/15/19at 13:37; Admin Dose 100 MLS/HR; Start 06/06/19 at 14:30 Chlordiazepoxide (Librium) 10 mg TID PO Last administered on 06/09/19at 08:39; Admin Dose 10 MG; Start 06/07/19 at 13:00 Trimethoprim/ Sulfamethoxazole (Bactrim (Ds)) 1 tab BID PO ; Start 06/09/19 at 11:08 KATY PATTERSON NP Jun 09, 2019 11:48
--- NOTE | 2019-06-09 13:01 | CONS ---
Assessment/Plan Assessment/Plan Hospital Course (Demo Recall) No acute changes, looks comfortable, no fevers Wound cx + Proteus, MSSA, corynebact Antimicrobials: Bactrim Rocephin Physical examination this is a well-developed middle-aged white man who looks older his age with a poor hygiene patient is in no distress head atraumatic normocephalic neck is supple chest rise symmetrical breath sounds clear heart S1-S2 abdomen soft bowel sounds present extremities with right lower extremity erythema also dressing. Skin patient has a very poor hygiene and smells Assessment: Right lower extremity cellulitis Homelessness Alcohol and nicotine abuse Plan: Stable, continue abx, f/u podiatry rec-s, anticipate dc on oral Bactrim and Keflex Consultation Date/Type/Reason Admit Date/Time Jun 05, 2019 at 12:03 Initial Consult Date Type of Consult id Date/Time of Note DATE: 06/09/19 TIME: 12:58 Exam/Review of Systems Exam Vitals Vital Signs Date Temp Pulse Resp B/P (MAP) Pulse Ox O2 O2 Flow FiO2 Time Delivery Rate 06/09/19 98.0 85 18 142/91 95 Room Air 07:54 (108) Intake and Output 06/08/19 06/08/19 06/09/19 1515:00 23:00 07:00 IntakeIntake Total 300 ml 1010 ml 980 ml OutputOutput Total 800 ml 500 ml BalanceBalance 300 ml 210 ml 480 ml Results Result Diagram: 06/06/19 0525 06/09/19 0413 Results 24hrs Laboratory Tests Test 06/09/19 04:13 Blood Urea Nitrogen 22 H Creatinine 0.78 Medications Medication Current Medications IV Flush (NS 3 ml) 3 ml PER PROTOCOL IV ; Start 06/05/19 at 14:30 Ondansetron HCl (Zofran Inj) 4 mg Q6H PRN IV NAUSEA/VOMITING; Start 06/05/19 at 14:30 Acetaminophen (Tylenol Tab) 650 mg Q6H PRN PO .PAIN 1-3 OR TEMP; Start 06/05/19 at 14:30 Acetaminophen/ Hydrocodone Bitart ([place] (5/325)) 1 tab Q6H PRN PO .MOD PAIN 4- 6 Last administered on 06/08/19at 08:56; Admin Dose 1 TAB; Start 06/05/19 at 14:30 Enoxaparin Sodium (Lovenox) 40 mg DAILY SC Last administered on 06/09/19 08:40; Admin Dose 40 MG; Start 06/06/19 at 09:00 Lorazepam (Ativan) 1 mg Q6H PRN IV Anxiety; Start 06/05/19 at 15:00 Thiamine HCl (Vitamin B1) 100 mg DAILY PO Last administered on 06/09/19 08:39; Admin Dose 100 MG; Start 06/06/19 at 09:00 Multivitamins Therapeutic (Theragran) 1 tab DAILY PO Last administered on 06/09/19 08:39; Admin Dose 1 TAB; Start 06/06/19 at 09:00 Sodium Hypochlorite (Dakins Diluted ()) 1 applic DAILY TP Last administered on 06/09/19 08:39; Admin Dose 1 APPLIC; Start 06/06/19 at 09:00 Cholecalciferol (Vitamin D) 1,000 unit DAILY PO Last administered on 06/09/19 08:39; Admin Dose 1,000 UNIT; Start 06/06/19 at 09:00 Ceftriaxone Sodium 50 ml @ 100 mls/hr Q24H IVPB Last administered on 06/08/19 13:37; Admin Dose 100 MLS/HR; Start 06/06/19 at 14:30 Chlordiazepoxide (Librium) 10 mg TID PO Last administered on 06/09/19 12:35; Admin Dose 10 MG; Start 06/07/19 at 13:00 Trimethoprim/ Sulfamethoxazole (Bactrim (Ds)) 1 tab BID PO Last administered on 06/09/19 11:38; Admin Dose 1 TAB; Start 06/09/19 at 11:08 CHEMO LEE NP Jun 09, 2019 13:00
[2019-06-09 14:01] VITALS: BP 133/83; PULSE 76; RESP 18
[2019-06-09] MEDS: CEPHALEXIN 500 MG CAP PO SCH ×2 (14:16→21:04)
[2019-06-09 19:45] VITALS: BP 144/91; PULSE 80; RESP 20
[2019-06-10 01:56] VITALS: BP 145/94; PULSE 80; RESP 18
[2019-06-10] MEDS: CEPHALEXIN 500 MG CAP PO SCH ×3 (06:38→21:03)
[2019-06-10 07:53] VITALS: BP 132/73; PULSE 72; RESP 18
[2019-06-10] MEDS: TRIMETHOPRIM/SULFAMETHOX (DS) TAB PO SCH ×2 (08:25→21:04)
[2019-06-10] MEDS: CHOLECALCIFEROL 1,000 UNIT TAB PO SCH (08:25)
[2019-06-10] MEDS: CHLORDIAZEPOXIDE 5 MG CAP PO SCH ×3 (08:26→21:04)
[2019-06-10] MEDS: THIAMINE 100 MG TAB PO SCH (08:26)
[2019-06-10] MEDS: MULTIVITAMINS THERAPEUTIC TAB PO SCH (08:26)
[2019-06-10] MEDS: ENOXAPARIN 40 MG/0.4 ML SYG SC SCH (08:29)
[2019-06-10] MEDS: DAKINS 0.0125%(1/40) 473 ML SOLUTION TP SCH (08:30)
--- NOTE | 2019-06-10 13:12 | PN ---
Date/Time of Note Date/Time of Note DATE: 06/10/19 TIME: 13:10 Assessment/Plan VTE Prophylaxis Risk score (from [facility] [place])>0 risk: 2 SCD applied (from [facility] [place]): No SCD contraindicated: other Pharmacological prophylaxis: LMWH Lines/Catheters IV Catheter Type (from [facility] Saline Lock Urinary Cath still in place: No Assessment/Plan Hospital Course 1. Right lower extremity cellulitis. Continue abx per ID consult wound culture: WOUND CULTURE Final Organism 1 STAPHYLOCOCCUS AUREUS QUANTITY 1+ Organism 2 PROTEUS MIRABILIS QUANTITY SCANT GROWTH Organism 3 CORYNEBACTERIUM SPECIES QUANTITY 1+ Podiatry consulted patient - continue with wound care Arterial Doppler study negative for any significant arterial occlusion. Bilateral lower extremity venous Doppler study negative for any DVT. 2. Alcohol abuse. on vitamin supplement Continue the patient on Librium taper. Benzodiazepine as needed for seizure 3. Nicotine use. cessation advised 4. Normocytic anemia. Likely of chronic disease. Monitor H&H. 5. Homelessness. 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 Incomplete database. Social work consult following 7. Reported right side weakness CT brain: - No acute intracranial hemorrhage nor mass effect. 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 MRI brain has improved sensitivity for recent infarct or subtle lesion. Right shoulder xray: - No displaced fracture identified. - Diminutive distal clavicle with adjacent osseous fragment may be postsurgical / traumatic continue PT Disposition and plan. continue abx. awaiting possible placement . continue wound care Discussed POC with Dr. Araya Result Diagram: 06/10/19 0916 06/10/19 0916 Results 24hrs Laboratory Tests Test 06/10/19 09:16 White Blood Count 10.7 Red Blood Count 4.86 Hemoglobin 13.5 L Hematocrit 42.7 Mean Corpuscular Volume 87.9 Mean Corpuscular Hemoglobin 27.8 L Mean Corpuscular Hemoglobin Concent 31.6 L Red Cell Distribution Width 14.5 Platelet Count 454 H Mean Platelet Volume 8.1 Immature Granulocytes % 1.200 H Neutrophils % 65.5 Lymphocytes % 20.1 Monocytes % 8.0 Eosinophils % 4.4 Basophils % 0.8 Nucleated Red Blood Cells % 0.0 Immature Granulocytes # 0.130 H Neutrophils # 7.0 Lymphocytes # 2.2 Monocytes # 0.9 Eosinophils # 0.5 Basophils # 0.1 Nucleated Red Blood Cells # 0.0 Sodium Level 139 Potassium Level 4.7 Chloride Level 104 Carbon Dioxide Level 24 Anion Gap 11 Blood Urea Nitrogen 19 Creatinine 0.85 Est Glomerular Filtrat Rate mL/min > 60 Glucose Level 116 Calcium Level 9.3 Subjective 24 Hr Interval Summary Free Text/Dictation resting during visit. comfortable at present Exam/Review of Systems Exam Vitals Vital Signs Date Temp Pulse Resp B/P (MAP) Pulse Ox O2 O2 Flow FiO2 Time Delivery Rate 06/10/19 97.7 72 18 132/73 96 07:53 (92) 06/09/19 Room Air 14:01 Intake and Output 06/09/19 06/09/19 06/10/19 1515:00 23:00 07:00 IntakeIntake Total 800 ml OutputOutput Total 700 ml 300 ml BalanceBalance 100 ml -300 ml Exam Constitutional: alert Psych: No nl mood/affect Respiratory: other (no obvious wheezing/rhonchi) Cardiovascular: other (regular rate ) Gastrointestinal: soft, non-tender Neurological: No nl mental status, No nl speech Skin: other (right lower extremity wound, dressing in place ) Results Results 24hrs Laboratory Tests Test 06/10/19 09:16 White Blood Count 10.7 Red Blood Count 4.86 Hemoglobin 13.5 L Hematocrit 42.7 Mean Corpuscular Volume 87.9 Mean Corpuscular Hemoglobin 27.8 L Mean Corpuscular Hemoglobin Concent 31.6 L Red Cell Distribution Width 14.5 Platelet Count 454 H Mean Platelet Volume 8.1 Immature Granulocytes % 1.200 H Neutrophils % 65.5 Lymphocytes % 20.1 Monocytes % 8.0 Eosinophils % 4.4 Basophils % 0.8 Nucleated Red Blood Cells % 0.0 Immature Granulocytes # 0.130 H Neutrophils # 7.0 Lymphocytes # 2.2 Monocytes # 0.9 Eosinophils # 0.5 Basophils # 0.1 Nucleated Red Blood Cells # 0.0 Sodium Level 139 Potassium Level 4.7 Chloride Level 104 Carbon Dioxide Level 24 Anion Gap 11 Blood Urea Nitrogen 19 Creatinine 0.85 Est Glomerular Filtrat Rate mL/min > 60 Glucose Level 116 Calcium Level 9.3 Medications Medication Current Medications IV Flush (NS 3 ml) 3 ml PER PROTOCOL IV ; Start 06/05/19 at 14:30 Ondansetron HCl (Zofran Inj) 4 mg Q6H PRN IV NAUSEA/VOMITING; Start 06/05/19 at 14:30 Acetaminophen (Tylenol Tab) 650 mg Q6H PRN PO .PAIN 1-3 OR TEMP; Start 06/05/19 at 14:30 Acetaminophen/ Hydrocodone Bitart ([place] (5/325)) 1 tab Q6H PRN PO .MOD PAIN 4- 6 Last administered on 06/08/19 08:56; Admin Dose 1 TAB; Start 06/05/19 at 14:30 Enoxaparin Sodium (Lovenox) 40 mg DAILY SC Last administered on 06/10/19 08:29; Admin Dose 40 MG; Start 06/06/19 at 09:00 Lorazepam (Ativan) 1 mg Q6H PRN IV Anxiety; Start 06/05/19 at 15:00 Thiamine HCl (Vitamin B1) 100 mg DAILY PO Last administered on 06/10/19 08:26; Admin Dose 100 MG; Start 06/06/19 at 09:00 Multivitamins Therapeutic (Theragran) 1 tab DAILY PO Last administered on 06/10/19 08:26; Admin Dose 1 TAB; Start 06/06/19 at 09:00 Sodium Hypochlorite (Dakins Diluted (/40)) 1 applic DAILY TP Last administered on 06/10/19 08:30; Admin Dose 1 APPLIC; Start 06/06/19 at 09:00 Cholecalciferol (Vitamin D) 1,000 unit DAILY PO Last administered on 06/10/19 08:25; Admin Dose 1,000 UNIT; Start 06/06/19 at 09:00 Chlordiazepoxide (Librium) 10 mg TID PO Last administered on 06/10/19 13:03; Admin Dose 10 MG; Start 06/07/19 at 13:00 Trimethoprim/ Sulfamethoxazole (Bactrim (Ds)) 1 tab BID PO Last administered on 06/10/19 08:25; Admin Dose 1 TAB; Start 06/09/19 at 11:08 Cephalexin (Keflex) 500 mg Q8 PO Last administered on 06/10/19 13:03; Admin Dose 500 MG; Start 06/09/19 at 14:00 KATY PATTERSON NP Jun 10, 2019 13:11
[2019-06-10 14:00] VITALS: BP 138/85; PULSE 91; RESP 18
[2019-06-10 20:00] VITALS: BP 140/87; PULSE 88; RESP 19
[2019-06-11 02:00] VITALS: BP 135/78; PULSE 79; RESP 17
[2019-06-11] MEDS: CEPHALEXIN 500 MG CAP PO SCH ×3 (05:18→22:31)
[2019-06-11 07:57] VITALS: BP 142/90; PULSE 74; RESP 18
[2019-06-11] MEDS: NACL 0.9% 3 ML SYG IV SCH (09:16)
[2019-06-11] MEDS: MULTIVITAMINS THERAPEUTIC TAB PO SCH (09:17)
[2019-06-11] MEDS: DAKINS 0.0125%(1/40) 473 ML SOLUTION TP SCH (09:17)
[2019-06-11] MEDS: CHOLECALCIFEROL 1,000 UNIT TAB PO SCH (09:17)
[2019-06-11] MEDS: TRIMETHOPRIM/SULFAMETHOX (DS) TAB PO SCH ×2 (09:17→20:26)
[2019-06-11] MEDS: CHLORDIAZEPOXIDE 5 MG CAP PO SCH (09:17)
[2019-06-11] MEDS: THIAMINE 100 MG TAB PO SCH (09:17)
[2019-06-11] MEDS: ENOXAPARIN 40 MG/0.4 ML SYG SC SCH (09:18)
[2019-06-11] MEDS: LORAZEPAM 2 MG INJ IV PRN (12:01)
--- NOTE | 2019-06-11 12:16 | CONS ---
Assessment/Plan Assessment/Plan Hospital Course (Demo Recall) No acute changes Wound cx + Proteus, MSSA, corynebact Antimicrobials: Bactrim Keflex Physical examination this is a well-developed middle-aged white man who looks older his age with a poor hygiene patient is in no distress head atraumatic normocephalic neck is supple chest rise symmetrical breath sounds clear heart S1-S2 abdomen soft bowel sounds present extremities with right lower extremity erythema also dressing. Skin patient has a very poor hygiene and smells Assessment: Right lower extremity cellulitis Homelessness Alcohol and nicotine abuse Plan: Stable, anticipate dc on oral Bactrim and Keflex to complete 2 weeks abx Consultation Date/Type/Reason Admit Date/Time Jun 05, 2019 at 12:03 Initial Consult Date Type of Consult id Date/Time of Note DATE: 06/11/19 TIME: 12:16 Exam/Review of Systems Exam Vitals Vital Signs Date Temp Pulse Resp B/P (MAP) Pulse Ox O2 O2 Flow FiO2 Time Delivery Rate 06/11/19 98.0 74 18 142/90 91 Room Air 07:57 (107) Intake and Output 06/10/19 06/10/19 06/11/19 1515:00 23:00 07:00 IntakeIntake Total 600 ml 560 ml BalanceBalance 600 ml 560 ml Results Result Diagram: 06/10/1916 06/10/19 0916 Medications Medication Current Medications IV Flush (NS 3 ml) 3 ml PER PROTOCOL IV Last administered on 06/11/19at 09:16; Admin Dose 3 ML; Start 06/05/19 at 14:30 Ondansetron HCl (Zofran Inj) 4 mg Q6H PRN IV NAUSEA/VOMITING; Start 06/05/19 at 14:30 Acetaminophen (Tylenol Tab) 650 mg Q6H PRN PO .PAIN 1-3 OR TEMP; Start 06/05/19 at 14:30 Acetaminophen/ Hydrocodone Bitart ([place] (5/325)) 1 tab Q6H PRN PO .MOD PAIN 4- 6 Last administered on 06/08/19at 08:56; Admin Dose 1 TAB; Start 06/05/19 at 14:30 Enoxaparin Sodium (Lovenox) 40 mg DAILY SC Last administered on 06/11/19at 09:18; Admin Dose 40 MG; Start 06/06/19 at 09:00 Lorazepam (Ativan) 1 mg Q6H PRN IV Anxiety Last administered on 06/11/19 12:01; Admin Dose 1 MG; Start 06/05/19 at 15:00 Thiamine HCl (Vitamin B1) 100 mg DAILY PO Last administered on 06/11/19 09:17; Admin Dose 100 MG; Start 06/06/19 at 09:00 Multivitamins Therapeutic (Theragran) 1 tab DAILY PO Last administered on 06/11/19 09:17; Admin Dose 1 TAB; Start 06/06/19 at 09:00 Sodium Hypochlorite (Dakins Diluted ()) 1 applic DAILY TP Last administered on 06/11/19 09:17; Admin Dose 1 APPLIC; Start 06/06/19 at 09:00 Cholecalciferol (Vitamin D) 1,000 unit DAILY PO Last administered on 06/11/19 09:17; Admin Dose 1,000 UNIT; Start 06/06/19 at 09:00 Chlordiazepoxide (Librium) 10 mg TID PO Last administered on 06/11/19 09:17; Admin Dose 10 MG; Start 06/07/19 at 13:00 Trimethoprim/ Sulfamethoxazole (Bactrim (Ds)) 1 tab BID PO Last administered on 06/11/19 09:17; Admin Dose 1 TAB; Start 06/09/19 at 11:08 Cephalexin (Keflex) 500 mg Q8 PO Last administered on 06/11/19 05:18; Admin Dose 500 MG; Start 06/09/19 at 14:00 CHEMO LEE NP Jun 11, 2019 12:16
--- NOTE | 2019-06-11 13:09 | PN ---
Date/Time of Note Date/Time of Note DATE: 06/11/19 TIME: 13:04 Assessment/Plan VTE Prophylaxis Risk score (from Ns)>0 risk: 1 SCD applied (from [facility]): No SCD contraindicated: other Pharmacological prophylaxis: LMWH Lines/Catheters IV Catheter Type (from [facility] Saline Lock Urinary Cath still in place: No Assessment/Plan Hospital Course 1. Right lower extremity cellulitis. Continue abx per ID consult wound culture: WOUND CULTURE Final Organism 1 STAPHYLOCOCCUS AUREUS QUANTITY 1+ Organism 2 PROTEUS MIRABILIS QUANTITY SCANT GROWTH Organism 3 CORYNEBACTERIUM SPECIES QUANTITY 1+ Podiatry consulted patient - continue with wound care Arterial Doppler study negative for any significant arterial occlusion. Bilateral lower extremity venous Doppler study negative for any DVT. 2. Alcohol abuse. on vitamin supplement Benzodiazepine as needed for seizure 3. Nicotine use. cessation was advised 4. Normocytic anemia. Likely of chronic disease. Monitor H&H. 5. Homelessness. 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 Incomplete database. Social work consult following 7. Reported right side weakness CT brain: - No acute intracranial hemorrhage nor mass effect. 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 MRI brain has improved sensitivity for recent infarct or subtle lesion. Right shoulder xray: - No displaced fracture identified. - Diminutive distal clavicle with adjacent osseous fragment may be postsurgical / traumatic continue PT Disposition and plan. Awaiting possible placement. continue supportive care. f/u casework manager Discussed POC with Dr. Araya Result Diagram: 06/10/19 0916 06/10/19 0916 Subjective 24 Hr Interval Summary Free Text/Dictation alert, during visit. Still reports to me during visit his name is ONE Exam/Review of Systems Exam Vitals Vital Signs Date Temp Pulse Resp B/P (MAP) Pulse Ox O2 O2 Flow FiO2 Time Delivery Rate 06/11/19 98.0 74 18 142/90 91 Room Air 07:57 (107) Intake and Output 06/10/19 06/10/19 06/11/19 1515:00 23:00 07:00 IntakeIntake Total 600 ml 560 ml BalanceBalance 600 ml 560 ml Exam Constitutional: alert Psych: No nl mood/affect Respiratory: other (no obvious wheezing/rhonchi) Cardiovascular: other (regular rate ) Gastrointestinal: soft, non-tender Neurological: No nl mental status, No nl speech Skin: other (right lower extremity wound, dressing in place ) Medications Medication Current Medications IV Flush (NS 3 ml) 3 ml PER PROTOCOL IV Last administered on 06/11/19 09:16; Admin Dose 3 ML; Start 06/05/19 at 14:30 Ondansetron HCl (Zofran Inj) 4 mg Q6H PRN IV NAUSEA/VOMITING; Start 06/05/19 at 14:30 Acetaminophen (Tylenol Tab) 650 mg Q6H PRN PO .PAIN 1-3 OR TEMP; Start 06/05/19 at 14:30 Acetaminophen/ Hydrocodone Bitart ([place] (5/325)) 1 tab Q6H PRN PO .MOD PAIN 4- 6 Last administered on 06/08/19 08:56; Admin Dose 1 TAB; Start 06/05/19 at 14:30 Enoxaparin Sodium (Lovenox) 40 mg DAILY SC Last administered on 06/11/19 09:18; Admin Dose 40 MG; Start 06/06/19 at 09:00 Lorazepam (Ativan) 1 mg Q6H PRN IV Anxiety Last administered on 06/11/19 12:01; Admin Dose 1 MG; Start 06/05/19 at 15:00 Thiamine HCl (Vitamin B1) 100 mg DAILY PO Last administered on 06/11/19 09:17; Admin Dose 100 MG; Start 06/06/19 at 09:00 Multivitamins Therapeutic (Theragran) 1 tab DAILY PO Last administered on 06/11/19 09:17; Admin Dose 1 TAB; Start 06/06/19 at 09:00 Sodium Hypochlorite (Dakins Diluted ()) 1 applic DAILY TP Last administered on 06/11/19 09:17; Admin Dose 1 APPLIC; Start 06/06/19 at 09:00 Cholecalciferol (Vitamin D) 1,000 unit DAILY PO Last administered on 06/11/19 09:17; Admin Dose 1,000 UNIT; Start 06/06/19 at 09:00 Chlordiazepoxide (Librium) 10 mg TID PO Last administered on 06/11/19 09:17; Admin Dose 10 MG; Start 06/07/19 at 13:00 Trimethoprim/ Sulfamethoxazole (Bactrim (Ds)) 1 tab BID PO Last administered on 7/18/19at 09:17; Admin Dose 1 TAB; Start 06/09/19 at 11:08 Cephalexin (Keflex) 500 mg Q8 PO Last administered on 06/11/19at 05:18; Admin Dose 500 MG; Start 06/09/19 at 14:00 KATY PATTERSON NP Jun 11, 2019 13:09
[2019-06-11] MEDS: NICOTINE (14 MG/24 HR) PATCH TRANSDERM SCH (13:44)
[2019-06-11 14:06] VITALS: BP 140/88; PULSE 79; RESP 18
[2019-06-11 19:46] VITALS: BP 141/90; PULSE 89; RESP 18
[2019-06-11 19:58] VITALS: BP 141/88; PULSE 85; RESP 18
[2019-06-11 22:01] VITALS: PULSE 64
[2019-06-12 02:26] VITALS: BP 122/88; PULSE 90; RESP 17
[2019-06-12] MEDS: CEPHALEXIN 500 MG CAP PO SCH ×3 (05:39→21:47)
[2019-06-12 08:00] VITALS: BP 132/84; PULSE 81; RESP 18
[2019-06-12] MEDS: TRIMETHOPRIM/SULFAMETHOX (DS) TAB PO SCH ×2 (08:52→20:39)
[2019-06-12] MEDS: MULTIVITAMINS THERAPEUTIC TAB PO SCH (08:52)
[2019-06-12] MEDS: THIAMINE 100 MG TAB PO SCH (08:52)
[2019-06-12] MEDS: NICOTINE (14 MG/24 HR) PATCH TRANSDERM SCH (08:52)
[2019-06-12] MEDS: CHOLECALCIFEROL 1,000 UNIT TAB PO SCH (08:52)
[2019-06-12] MEDS: DAKINS 0.0125%(1/40) 473 ML SOLUTION TP SCH (08:53)
[2019-06-12] MEDS: ENOXAPARIN 40 MG/0.4 ML SYG SC SCH (08:55)
--- NOTE | 2019-06-12 12:07 | PN ---
Date/Time of Note Date/Time of Note DATE: 06/12/19 TIME: 12:03 Assessment/Plan VTE Prophylaxis Risk score (from Ns)>0 risk: 2 SCD applied (from [facility] [place] No SCD contraindicated: other Pharmacological prophylaxis: LMWH Lines/Catheters IV [facility] Type (from [facility] Saline Lock Urinary Cath still in place: No Assessment/Plan Hospital Course 1. Right lower extremity cellulitis. Continue abx per ID consult wound culture: WOUND CULTURE Final Organism 1 STAPHYLOCOCCUS AUREUS QUANTITY 1+ Organism 2 PROTEUS MIRABILIS QUANTITY SCANT GROWTH Organism 3 CORYNEBACTERIUM SPECIES QUANTITY 1+ Podiatry consulted patient - continue with wound care Arterial Doppler study negative for any significant arterial occlusion. Bilateral lower extremity venous Doppler study negative for any DVT. 2. Alcohol abuse. on vitamin supplement Benzodiazepine as needed for seizure 3. Nicotine use. cessation was advised 4. Normocytic anemia. Likely of chronic disease. Monitor H&H. 5. Homelessness. 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 Incomplete database. Social work consult following 7. Reported right side weakness CT brain: - No acute intracranial hemorrhage nor mass effect. 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 MRI brain has improved sensitivity for recent infarct or subtle lesion. Right shoulder xray: - No displaced fracture identified. - Diminutive distal clavicle with adjacent osseous fragment may be postsurgical / traumatic continue PT Disposition and plan. continue abx. continue wound care. f/u correctional casework specialist for placement Discussed POC with Dr. Araya Result Diagram: 06/10/19 0916 06/10/19 0916 Subjective 24 Hr Interval Summary Free Text/Dictation patient more responsive today. Tells me his name is Jake today Exam/Review of Systems Exam Vitals Vital Signs Date Temp Pulse Resp B/P (MAP) Pulse Ox O2 O2 Flow FiO2 Time Delivery Rate 06/12/19 98.5 81 18 132/84 96 08:00 (100) 06/11/19 Room Air 14:06 Intake and Output 06/11/19 06/11/19 06/12/19 1515:00 23:00 07:00 IntakeIntake Total 600 ml 2190 ml BalanceBalance 600 ml 2190 ml Exam Constitutional: alert Psych: No nl mood/affect Respiratory: other (no obvious wheezing/rhonchi) no distres Cardiovascular: other (regular rate ) Gastrointestinal: soft, non-tender Neurological: No nl mental status, No nl speech Skin: other (right lower extremity wound, dressing in place ) Medications Medication Current Medications IV Flush (NS 3 ml) 3 ml PER PROTOCOL IV Last administered on 06/11/19 09:16; Admin Dose 3 ML; Start 06/05/19 at 14:30 Ondansetron HCl (Zofran Inj) 4 mg Q6H PRN IV NAUSEA/VOMITING; Start 06/05/19 at 14:30 Acetaminophen (Tylenol Tab) 650 mg Q6H PRN PO .PAIN 1-3 OR TEMP; Start 06/05/19 at 14:30 Acetaminophen/ Hydrocodone Bitart ([place] (5/325)) 1 tab Q6H PRN PO .MOD PAIN 4- 6 Last administered on 06/08/19 08:56; Admin Dose 1 TAB; Start 06/05/19 at 14:30 Enoxaparin Sodium (Lovenox) 40 mg DAILY SC Last administered on 06/12/19 08:55; Admin Dose 40 MG; Start 06/06/19 at 09:00 Lorazepam (Ativan) 1 mg Q6H PRN IV Anxiety Last administered on 06/11/19 12:01; Admin Dose 1 MG; Start 06/05/19 at 15:00 Thiamine HCl (Vitamin B1) 100 mg DAILY PO Last administered on 06/12/19 08:52; Admin Dose 100 MG; Start 06/06/19 at 09:00 Multivitamins Therapeutic (Theragran) 1 tab DAILY PO Last administered on 08:52; Admin Dose 1 TAB; Start 06/06/19 at 09:00 Sodium Hypochlorite (Dakins Diluted (1/40)) 1 applic DAILY TP Last administered on 06/12/19 08:53; Admin Dose 1 APPLIC; Start 06/06/19 at 09:00 Cholecalciferol (Vitamin D) 1,000 unit DAILY PO Last administered on 06/12/19 08:52; Admin Dose 1,000 UNIT; Start 06/06/19 at 09:00 Trimethoprim/ Sulfamethoxazole (Bactrim (Ds)) 1 tab BID PO Last administered on 06/12/19 08:52; Admin Dose 1 TAB; Start 06/09/19 at 11:08 Cephalexin (Keflex) 500 mg Q8 PO Last administered on 06/12/19at 05:39; Admin Dose 500 MG; Start 06/09/19 at 14:00 Nicotine (Nicoderm 14 Mg/ 24hr) 1 patch DAILY TRANSDERM Last administered on 06/12/19at 08:52; Admin Dose 1 PATCH; Start 06/11/19 at 13:30 KATY PATTERSON NP Jun 12, 2019 12:07
--- NOTE | 2019-06-12 13:21 | CONS ---
Assessment/Plan Assessment/Plan Hospital Course (Demo Recall) No acute changes, awake, looks comfortable Wound cx + Proteus, MSSA, corynebact Antimicrobials: Bactrim Keflex Physical examination this is a well-developed middle-aged white man who looks o lder his age with a poor hygiene patient is in no distress head atraumatic normocephalic neck is supple chest rise symmetrical breath sounds clear heart S1-S2 abdomen soft bowel sounds present extremities with right lower extremity erythema also dressing. Skin patient has a very poor hygiene and smells Assessment: Right lower extremity cellulitis Homelessness Alcohol and nicotine abuse Plan: Remains stable, anticipate dc on oral Bactrim and Keflex to complete 2 weeks abx Consultation Date/Type/Reason Admit Date/Time Jun 05, 2019 at 12:03 Initial Consult Date Type of Consult id Date/Time of Note DATE: 06/12/19 TIME: 13:20 Exam/Review of Systems Exam Vitals Vital Signs Date Temp Pulse Resp B/P (MAP) Pulse Ox O2 O2 Flow FiO2 Time Delivery Rate 06/12/19 98.5 81 18 132/84 96 08:00 (100) 06/11/19 Room Air 14:06 Intake and Output 06/11/19 06/11/19 06/12/19 1515:00 23:00 07:00 IntakeIntake Total 600 ml 2190 ml BalanceBalance 600 ml 2190 ml Results Result Diagram: 06/10/19 0916 06/10/19 0916 Medications Medication Current Medications IV Flush (NS 3 ml) 3 ml PER PROTOCOL IV Last administered on 06/11/19at 09:16; Admin Dose 3 ML; Start 06/05/19 at 14:30 Ondansetron HCl (Zofran Inj) 4 mg Q6H PRN IV NAUSEA/VOMITING; Start 06/05/19 at 14:30 Acetaminophen (Tylenol Tab) 650 mg Q6H PRN PO .PAIN 1-3 OR TEMP; Start 06/05/19 at 14:30 Acetaminophen/ Hydrocodone Bitart ([place] (5/325)) 1 tab Q6H PRN PO .MOD PAIN 4- 6 Last administered on 06/08/19at 08:56; Admin Dose 1 TAB; Start 06/05/19 at 14:30 Enoxaparin Sodium (Lovenox) 40 mg DAILY SC Last administered on 06/12/19 08:55; Admin Dose 40 MG; Start 06/06/19 at 09:00 Lorazepam (Ativan) 1 mg Q6H PRN IV Anxiety Last administered on 06/11/19 12:01; Admin Dose 1 MG; Start 06/05/19 at 15:00 Thiamine HCl (Vitamin B1) 100 mg DAILY PO Last administered on 06/12/19 08:52; Admin Dose 100 MG; Start 06/06/19 at 09:00 Multivitamins Therapeutic (Theragran) 1 tab DAILY PO Last administered on 06/12/19 08:52; Admin Dose 1 TAB; Start 06/06/19 at 09:00 Sodium Hypochlorite (Dakins Diluted ()) 1 applic DAILY TP Last administered on 06/12/19 08:53; Admin Dose 1 APPLIC; Start 06/06/19 at 09:00 Cholecalciferol (Vitamin D) 1,000 unit DAILY PO Last administered on 06/12/19 08:52; Admin Dose 1,000 UNIT; Start 06/06/19 at 09:00 Trimethoprim/ Sulfamethoxazole (Bactrim (Ds)) 1 tab BID PO Last administered on 06/12/19 08:52; Admin Dose 1 TAB; Start 06/09/19 at 11:08 Cephalexin (Keflex) 500 mg Q8 PO Last administered on 06/12/19 05:39; Admin Dose 500 MG; Start 06/09/19 at 14:00 Nicotine (Nicoderm 14 Mg/ 24hr) 1 patch DAILY TRANSDERM Last administered on 06/12/19 08:52; Admin Dose 1 PATCH; Start 06/11/19 at 13:30 CHEMO LEE NP Jun 12, 2019 13:21
[2019-06-12 14:12] VITALS: BP 133/76; PULSE 91; RESP 18
[2019-06-12 20:01] VITALS: BP 137/85; PULSE 91; RESP 18
[2019-06-13 02:13] VITALS: BP 113/66; PULSE 86; RESP 18
[2019-06-13] MEDS: CEPHALEXIN 500 MG CAP PO SCH ×3 (06:24→22:11)
[2019-06-13] MEDS: CHOLECALCIFEROL 1,000 UNIT TAB PO SCH (08:17)
[2019-06-13] MEDS: NICOTINE (14 MG/24 HR) PATCH TRANSDERM SCH (08:17)
[2019-06-13] MEDS: TRIMETHOPRIM/SULFAMETHOX (DS) TAB PO SCH ×2 (08:17→22:11)
[2019-06-13] MEDS: THIAMINE 100 MG TAB PO SCH (08:17)
[2019-06-13] MEDS: MULTIVITAMINS THERAPEUTIC TAB PO SCH (08:17)
[2019-06-13] MEDS: DAKINS 0.0125%(1/40) 473 ML SOLUTION TP SCH (08:18)
[2019-06-13] MEDS: ENOXAPARIN 40 MG/0.4 ML SYG SC SCH (08:18)
[2019-06-13 08:25] VITALS: BP 148/89; PULSE 85; RESP 20
--- NOTE | 2019-06-13 12:17 | PN ---
Date/Time of Note Date/Time of Note DATE: 06/13/19 TIME: 12:15 Assessment/Plan VTE Prophylaxis Risk score (from Nsg)>0 risk: 2 SCD applied (from Ns): No SCD contraindicated: other (wound rle ) Pharmacological prophylaxis: LMWH Lines/Catheters Urinary Cath still in place: No Assessment/Plan Hospital Course 1. Right lower extremity cellulitis. Continue abx per ID consult wound culture: WOUND CULTURE Final Organism 1 STAPHYLOCOCCUS AUREUS QUANTITY 1+ Organism 2 PROTEUS MIRABILIS QUANTITY SCANT GROWTH Organism 3 CORYNEBACTERIUM SPECIES QUANTITY 1+ Podiatry consulted patient - continue with wound care Arterial Doppler study negative for any significant arterial occlusion. Bilateral lower extremity venous Doppler study negative for any DVT. 2. Alcohol abuse. on vitamin supplement Benzodiazepine as needed for seizure 3. Nicotine use. cessation was advised 4. Normocytic anemia. Likely of chronic disease. Monitor H&H. 5. Homelessness. garbage pick up worker consult following 6. Incomplete database. Social work consult following 7. Reported right side weakness CT brain: - No acute intracranial hemorrhage nor mass effect. 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 MRI brain has improved sensitivity for recent infarct or subtle lesion. Right shoulder xray: - No displaced fracture identified. - Diminutive distal clavicle with adjacent osseous fragment may be postsurgical / traumatic continue PT Disposition and plan. abx per ID. continue wound care. f/u insurance case manager for placement. continue supportive care Discussed POC with Dr. Araya Result Diagram: 06/10/19 0916 06/10/19 0916 Subjective 24 Hr Interval Summary Free Text/Dictation comfortable. no specific complaints. Exam/Review of Systems Exam Vitals Vital Signs Date Temp Pulse Resp B/P (MAP) Pulse Ox O2 O2 Flow FiO2 Time Delivery Rate 06/13/19 98.0 85 20 148/89 95 08:25 (108) 06/12/19 Room Air 20:01 Intake and Output 06/12/19 06/12/19 06/13/19 1515:00 23:00 07:00 IntakeIntake Total 880 ml 720 ml BalanceBalance 880 ml 720 ml Exam Constitutional: alert Psych: No nl mood/affect Respiratory: other (no obvious wheezing/rhonchi) no distres Cardiovascular: other (regular rate ) Gastrointestinal: soft, non-tender Neurological: No nl mental status, No nl speech Skin: other (right lower extremity wound, dressing in place ) Medications Medication Current Medications IV Flush (NS 3 ml) 3 ml PER PROTOCOL IV Last administered on 06/11/19 09:16; Admin Dose 3 ML; Start 06/05/19 at 14:30 Ondansetron HCl (Zofran Inj) 4 mg Q6H PRN IV NAUSEA/VOMITING; Start 06/05/19 at 14:30 Acetaminophen (Tylenol Tab) 650 mg Q6H PRN PO .PAIN 1-3 OR TEMP; Start 06/05/19 at 14:30 Acetaminophen/ Hydrocodone Bitart ([place] (5/325)) 1 tab Q6H PRN PO .MOD PAIN 4- 6 Last administered on 06/08/19 08:56; Admin Dose 1 TAB; Start 06/05/19 at 14:30 Enoxaparin Sodium (Lovenox) 40 mg DAILY SC Last administered on 06/13/19 08:18; Admin Dose 40 MG; Start 06/06/19 at 09:00 Lorazepam (Ativan) 1 mg Q6H PRN IV Anxiety Last administered on 06/11/19 12:01; Admin Dose 1 MG; Start 06/05/19 at 15:00 Thiamine HCl (Vitamin B1) 100 mg DAILY PO Last administered on 06/13/19 08:17; Admin Dose 100 MG; Start 06/06/19 at 09:00 Multivitamins Therapeutic (Theragran) 1 tab DAILY PO Last administered on 06/13/19 08:17; Admin Dose 1 TAB; Start 06/06/19 at 09:00 Sodium Hypochlorite (Dakins Diluted (40)) 1 applic DAILY TP Last administered on 06/13/19 08:18; Admin Dose 1 APPLIC; Start 06/06/19 at 09:00 Cholecalciferol (Vitamin D) 1,000 unit DAILY PO Last administered on 06/13/19 08:17; Admin Dose 1,000 UNIT; Start 06/06/19 at 09:00 Trimethoprim/ Sulfamethoxazole (Bactrim (Ds)) 1 tab BID PO Last administered on 06/13/19 08:17; Admin Dose 1 TAB; Start 06/09/19 at 11:08 Cephalexin (Keflex) 500 mg Q8 PO Last administered on 7/20/19at 06:24; Admin Dose 500 MG; Start 06/09/19 at 14:00 Nicotine (Nicoderm 14 Mg/ 24hr) 1 patch DAILY TRANSDERM Last administered on 06/13/19at 08:17; Admin Dose 1 PATCH; Start 06/11/19 at 13:30 KATY PATTERSON NP Jun 13, 2019 12:17
[2019-06-13 15:08] VITALS: BP 135/81; PULSE 87; RESP 20
--- NOTE | 2019-06-13 16:28 | CONS ---
Assessment/Plan Assessment/Plan Hospital Course (Demo Recall) ID PROGRESS NOTE CURRENT ABX: DAY # =>Bactrim + Keflex 24H INTERVAL SUMMARY * Resting in bed with eyes closed, TV on, no fevers, VSS, NAD, no new issues MICRO * 06/05/19 BCx (-) * 06/05/19 GRAM STAIN Final POLYMORPH. LEUKOCYTE RARE GRAM POS COCCI IN PAIRS 3+ GRAM NEGATIVE RODS RARE WOUND CULTURE Final Organism 1 STAPHYLOCOCCUS AUREUS QUANTITY 1+ Organism 2 PROTEUS MIRABILIS QUANTITY SCANT GROWTH Organism 3 CORYNEBACTERIUM SPECIES QUANTITY 1+ S AUREUS P. MIRAB M.I.C. RX M.I.C. RX --------- --- --------- --- AMPICILLIN <=2 S CEFAZOLIN S CEFEPIME <=1 S CEFOTAXIME S CIPROFLOXACIN <=0.5 S <=0.25 S CLINDAMYCIN <=0.25 S DOXYCYCLINE S ERYTHROMYCIN <=0.25 S GENTAMICIN <=1 S LEVOFLOXACIN 0.25 S <=0.12 S OXACILLIN 0.5 S PENICILLIN-G >=0.5 R RIFAMPIN <=0.5 S VANCOMYCIN <=0.5 S TOBRAMYCIN <=1 S TRIMETHOPRIM/SULFAMETHOXAZOLE <=10 S <=20 S CORYN SPS Zone Size RX --------- --- * AMPICILLIN S * CEFAZOLIN S * CEFOTAXIME S * CEFUROXIME S * CIPROFLOXACIN S * CLINDAMYCIN R * ERYTHROMYCIN R * PENICILLIN S * VANCOMYCIN S PHYSICAL EXAMINATION: GENERAL: VSS, NAD - HEENT: AT, NC, NECK: Supple, CHEST: Rise symmetrical HEART: Pulse RRR ABDOMEN: Soft EXTREMITIES: Warm, dry -- RLEXT erythema, edema SKIN: No rash, no diaphoresis ID ASSESSMENT 48 yo M admit with: Right lower extremity cellulitis * Arterial Doppler study negative for any significant arterial occlusion. * Bilateral lower extremity venous Doppler study negative for any DVT Homelessness Alcohol and nicotine abuse ABX ALLERGIES: KNDA INVASIVES: PIV CURRENT ABX: DAY # => Bactrim + Keflex ID RECOMMENDATIONS/PLAN: 1. MAY dc on oral Bactrim and Keflex to complete 2 weeks abx . Consultation Date/Type/Reason Admit Date/Time Jun 05, 2019 at 12:03 Initial Consult Date Date/Time of Note DATE: 06/13/19 TIME: 16:28 Exam/Review of Systems Exam Vitals Vital Signs Date Temp Pulse Resp B/P (MAP) Pulse Ox O2 O2 Flow FiO2 Time Delivery Rate 06/13/19 98.3 87 20 135/81 92 15:08 (99) 06/12/19 Room Air 20:01 Intake and Output 06/12/19 06/12/19 06/13/19 1515:00 23:00 07:00 IntakeIntake Total 880 ml 720 ml BalanceBalance 880 ml 720 ml Results Result Diagram: 06/10/1991506/10/19915 Medications Medication Current Medications IV Flush (NS 3 ml) 3 ml PER PROTOCOL IV Last administered on 06/11/19 09:16; Admin Dose 3 ML; Start 06/05/19 at 14:30 Ondansetron HCl (Zofran Inj) 4 mg Q6H PRN IV NAUSEA/VOMITING; Start 06/05/19 at 14:30 Acetaminophen (Tylenol Tab) 650 mg Q6H PRN PO .PAIN 1-3 OR TEMP; Start 06/05/19 at 14:30 Acetaminophen/ Hydrocodone Bitart ([place] (5/325)) 1 tab Q6H PRN PO .MOD PAIN 4- 6 Last administered on 06/08/19at 08:56; Admin Dose 1 TAB; Start 06/05/19 at 14:30 Enoxaparin Sodium (Lovenox) 40 mg DAILY SC Last administered on 06/13/19 08:18; Admin Dose 40 MG; Start 06/06/19 at 09:00 Lorazepam (Ativan) 1 mg Q6H PRN IV Anxiety Last administered on 06/11/19at 1 2:01; Admin Dose 1 MG; Start 06/05/19 at 15:00 Thiamine HCl (Vitamin B1) 100 mg DAILY PO Last administered on 06/13/19 08:17; Admin Dose 100 MG; Start 06/06/19 at 09:00 Multivitamins Therapeutic (Theragran) 1 tab DAILY PO Last administered on 06/13/19 08:17; Admin Dose 1 TAB; Start 06/06/19 at 09:00 Sodium Hypochlorite (Dakins Diluted ()) 1 applic DAILY TP Last administered on 06/13/19 08:18; Admin Dose 1 APPLIC; Start 06/06/19 at 09:00 Cholecalciferol (Vitamin D) 1,000 unit DAILY PO Last administered on 06/13/19 08:17; Admin Dose 1,000 UNIT; Start 06/06/19 at 09:00 Trimethoprim/ Sulfamethoxazole (Bactrim (Ds)) 1 tab BID PO Last administered on 06/13/19 08:17; Admin Dose 1 TAB; Start 06/09/19 at 11:08 Cephalexin (Keflex) 500 mg Q8 PO Last administered on 06/13/19 14:17; Admin Dose 500 MG; Start 06/09/19 at 14:00 Nicotine (Nicoderm 14 Mg/ 24hr) 1 patch DAILY TRANSDERM Last administered on 06/13/19 08:17; Admin Dose 1 PATCH; Start 06/11/19 at 13:30 JOSELIN JONES NP Jun 13, 2019 16:28
[2019-06-13 20:10] VITALS: BP 133/87; PULSE 83; RESP 18
[2019-06-13] MEDS: LORAZEPAM 2 MG INJ IV PRN (22:32)
[2019-06-14 01:36] VITALS: BP 124/78; PULSE 75; RESP 17
[2019-06-14] MEDS: CEPHALEXIN 500 MG CAP PO SCH ×3 (06:18→21:21)
[2019-06-14 08:00] VITALS: BP 120/58; PULSE 70; RESP 18
[2019-06-14] MEDS: TRIMETHOPRIM/SULFAMETHOX (DS) TAB PO SCH ×2 (08:53→21:21)
[2019-06-14] MEDS: MULTIVITAMINS THERAPEUTIC TAB PO SCH (08:53)
[2019-06-14] MEDS: NICOTINE (14 MG/24 HR) PATCH TRANSDERM SCH (08:53)
[2019-06-14] MEDS: THIAMINE 100 MG TAB PO SCH (08:53)
[2019-06-14] MEDS: CHOLECALCIFEROL 1,000 UNIT TAB PO SCH (08:53)
[2019-06-14] MEDS: DAKINS 0.0125%(1/40) 473 ML SOLUTION TP SCH (08:53)
[2019-06-14] MEDS: ENOXAPARIN 40 MG/0.4 ML SYG SC SCH (08:54)
[2019-06-14] MEDS: LORAZEPAM 2 MG INJ IV PRN (08:59)
--- NOTE | 2019-06-14 12:24 | PN ---
Date/Time of Note Date/Time of Note DATE: 06/14/19 TIME: 12:23 Assessment/Plan VTE Prophylaxis Risk score (from Ns)>0 risk: 3 SCD applied (from Ns): No SCD contraindicated: other (rle wound) Pharmacological prophylaxis: LMWH Lines/Catheters IV [facility] Saline Lock Urinary Cath still in place: No Assessment/Plan Hospital Course 1. Right lower extremity cellulitis. Continue abx per ID consult wound culture: WOUND CULTURE Final Organism 1 STAPHYLOCOCCUS AUREUS QUANTITY 1+ Organism 2 PROTEUS MIRABILIS QUANTITY SCANT GROWTH Organism 3 CORYNEBACTERIUM SPECIES QUANTITY 1+ Podiatry consulted patient - continue with wound care Arterial Doppler study negative for any significant arterial occlusion. Bilateral lower extremity venous Doppler study negative for any DVT. 2. Alcohol abuse. on vitamin supplement Benzodiazepine as needed for seizure 3. Nicotine use. cessation was advised 4. Normocytic anemia. Likely of chronic disease. Monitor H&H. 5. Homelessness. drop board worker consult following 6. Incomplete database. Social work consult following 7. Reported right side weakness CT brain: - No acute intracranial hemorrhage nor mass effect. 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 MRI brain has improved sensitivity for recent infarct or subtle lesion. Right shoulder xray: - No displaced fracture identified. - Diminutive distal clavicle with adjacent osseous fragment may be postsurgical / traumatic continue PT Disposition and plan. Antibiotic regimen per ID. Awaiting possible placement. Follow-up with behavioral health case manager. Discussed POC with Dr. Araya Result Diagram: 06/10/1991506/10/19915 Subjective 24 Hr Interval Summary Free Text/Dictation Patient resting at this time. No specific complaints. Comfortable at present. Exam/Review of Systems Exam Vitals Vital Signs Date Temp Pulse Resp B/P (MAP) Pulse Ox O2 O2 Flow FiO2 Time Delivery Rate 06/14/19 98.3 70 18 120/58 94 08:00 (78) 06/12/19 Room Air 20:01 Intake and Output 06/13/19 06/13/19 06/14/19 1515:00 23:00 07:00 IntakeIntake Total 880 ml 400 ml BalanceBalance 880 ml 400 ml Exam Constitutional: alert Psych: No nl mood/affect Respiratory: other (no obvious wheezing/rhonchi) no distres Cardiovascular: other (regular rate ) Gastrointestinal: soft, non-tender Neurological: No nl mental status, No nl speech Skin: other (right lower extremity wound, dressing in place ) Medications Medication Current Medications IV Flush (NS 3 ml) 3 ml PER PROTOCOL IV Last administered on 06/11/19 09:16; Admin Dose 3 ML; Start 06/05/19 at 14:30 Ondansetron HCl (Zofran Inj) 4 mg Q6H PRN IV NAUSEA/VOMITING; Start 06/05/19 at 14:30 Acetaminophen (Tylenol Tab) 650 mg Q6H PRN PO .PAIN 1-3 OR TEMP; Start 06/05/19 at 14:30 Acetaminophen/ Hydrocodone Bitart ([place] (5/325)) 1 tab Q6H PRN PO .MOD PAIN 4- 6 Last administered on 06/08/19 08:56; Admin Dose 1 TAB; Start 06/05/19 at 14:30 Enoxaparin Sodium (Lovenox) 40 mg DAILY SC Last administered on 06/14/19 08:54; Admin Dose 40 MG; Start 06/06/19 at 09:00 Lorazepam (Ativan) 1 mg Q6H PRN IV Anxiety Last administered on 06/14/19 08:59; Admin Dose 1 MG; Start 06/05/19 at 15:00 Thiamine HCl (Vitamin B1) 100 mg DAILY PO Last administered on 06/14/19 08:53; Admin Dose 100 MG; Start 06/06/19 at 09:00 Multivitamins Therapeutic (Theragran) 1 tab DAILY PO Last administered on 06/14/19 08:53; Admin Dose 1 TAB; Start 06/06/19 at 09:00 Sodium Hypochlorite (Dakins Diluted (40)) 1 applic DAILY TP Last administered on 06/14/19 08:53; Admin Dose 1 APPLIC; Start 06/06/19 at 09:00 Cholecalciferol (Vitamin D) 1,000 unit DAILY PO Last administered on 06/14/19 08:53; Admin Dose 1,000 UNIT; Start 06/06/19 at 09:00 Trimethoprim/ Sulfamethoxazole (Bactrim (Ds)) 1 tab BID PO Last administered on 06/14/19 08:53; Admin Dose 1 TAB; Start 06/09/19 at 11:08 Cephalexin (Keflex) 500 mg Q8 PO Last administered on 06/14/19at 06:18; Admin Dose 500 MG; Start 06/09/19 at 14:00 Nicotine (Nicoderm 14 Mg/ 24hr) 1 patch DAILY TRANSDERM Last administered on 06/14/19at 08:53; Admin Dose 1 PATCH; Start 06/11/19 at 13:30 KATY PATTERSON NP Jun 14, 2019 12:24
[2019-06-14] MEDS: HYDROCODONE/APAP (5/325) TAB PO PRN (13:05)
[2019-06-14 14:35] VITALS: BP 139/71; PULSE 94; RESP 18
--- NOTE | 2019-06-14 16:19 | CONS ---
Assessment/Plan Assessment/Plan Hospital Course (Demo Recall) ID PROGRESS NOTE CURRENT ABX: DAY # =>Bactrim + Keflex 24H INTERVAL SUMMARY * CLINICALLY STATUS QUO -- NO new issues, no complaints, no fevers, VSS, NAD, taking po's voiding well * Tolerating ABX * DC PLANNING -- CM to work on placement MICRO * 06/05/19 BCx (-) * 06/05/19 GRAM STAIN Final POLYMORPH. LEUKOCYTE RARE GRAM POS COCCI IN PAIRS 3+ GRAM NEGATIVE RODS RARE WOUND CULTURE Final Organism 1 STAPHYLOCOCCUS AUREUS QUANTITY 1+ Organism 2 PROTEUS MIRABILIS QUANTITY SCANT GROWTH Organism 3 CORYNEBACTERIUM SPECIES QUANTITY 1+ S AUREUS P. MIRAB M.I.C. RX M.I.C. RX --------- --- --------- --- AMPICILLIN <=2 S CEFAZOLIN S CEFEPIME <=1 S CEFOTAXIME S CIPROFLOXACIN <=0.5 S <=0.25 S CLINDAMYCIN <=0.25 S DOXYCYCLINE S ERYTHROMYCIN <=0.25 S GENTAMICIN <=1 S LEVOFLOXACIN 0.25 S <=0.12 S OXACILLIN 0.5 S PENICILLIN-G >=0.5 R RIFAMPIN <=0.5 S VANCOMYCIN <=0.5 S TOBRAMYCIN <=1 S TRIMETHOPRIM/SULFAMETHOXAZOLE <=10 S <=20 S CORYN SPS Zone Size RX --------- --- * AMPICILLIN S * CEFAZOLIN S * CEFOTAXIME S * CEFUROXIME S * CIPROFLOXACIN S * CLINDAMYCIN R * ERYTHROMYCIN R * PENICILLIN S * VANCOMYCIN S PHYSICAL EXAMINATION: GENERAL: VSS, NAD - HEENT: AT, NC, NECK: Supple, CHEST: Rise symmetrical HEART: Pulse RRR ABDOMEN: Soft EXTREMITIES: Warm, dry -- RLEXT erythema, edema SKIN: No rash, no diaphoresis ID ASSESSMENT 48 yo M admit with: Right lower extremity cellulitis * Arterial Doppler study negative for any significant arterial occlusion. * Bilateral lower extremity venous Doppler study negative for any DVT Homelessness Alcohol and nicotine abuse ABX ALLERGIES: KNDA INVASIVES: PIV CURRENT ABX: DAY # => Bactrim + Keflex ID RECOMMENDATIONS/PLAN: 1. MAY dc on oral Bactrim and Keflex to complete 2 weeks abx . Consultation Date/Type/Reason Admit Date/Time Jun 05, 2019 at 12:03 Initial Consult Date Date/Time of Note DATE: 06/14/19 TIME: 16:18 Exam/Review of Systems Exam Vitals Vital Signs Date Temp Pulse Resp B/P (MAP) Pulse Ox O2 O2 Flow FiO2 Time Delivery Rate 06/14/19 98.3 94 18 139/71 94 14:35 (93) 06/12/19 Room Air 20:01 Intake and Output 06/13/19 06/13/19 06/14/19 1515:00 23:00 07:00 IntakeIntake Total 880 ml 400 ml BalanceBalance 880 ml 400 ml Results Result Diagram: 06/10/1991506/10/19915 Medications Medication Current Medications IV Flush (NS 3 ml) 3 ml PER PROTOCOL IV Last administered on 06/11/19at 09:16; Admin Dose 3 ML; Start 06/05/19 at 14:30 Ondansetron HCl (Zofran Inj) 4 mg Q6H PRN IV NAUSEA/VOMITING; Start 06/05/19 at 14:30 Acetaminophen (Tylenol Tab) 650 mg Q6H PRN PO .PAIN 1-3 OR TEMP; Start 06/05/19 at 14:30 Acetaminophen/ Hydrocodone Bitart ([place] (5/325)) 1 tab Q6H PRN PO .MOD PAIN 4- 6 Last administered on 06/14/19at 13:05; Admin Dose 1 TAB; Start 06/05/19 at 14:30 Enoxaparin Sodium (Lovenox) 40 mg DAILY SC Last administered on 06/14/19at 08:54; Admin Dose 40 MG; Start 06/06/19 at 09:00 Lorazepam (Ativan) 1 mg Q6H PRN IV Anxiety Last administered on 06/14/19at 08:59; Admin Dose 1 MG; Start 06/05/19 at 15:00 Thiamine HCl (Vitamin B1) 100 mg DAILY PO Last administered on 06/14/19at 08:53; Admin Dose 100 MG; Start 06/06/19 at 09:00 Multivitamins Therapeutic (Theragran) 1 tab DAILY PO Last administered on 06/14/19at 08:53; Admin Dose 1 TAB; Start 06/06/19 at 09:00 Sodium Hypochlorite (Dakins Diluted (40)) 1 applic DAILY TP Last administered on 06/14/19 08:53; Admin Dose 1 APPLIC; Start 06/06/19 at 09:00 Cholecalciferol (Vitamin D) 1,000 unit DAILY PO Last administered on 06/14/19 08:53; Admin Dose 1,000 UNIT; Start 06/06/19 at 09:00 Trimethoprim/ Sulfamethoxazole (Bactrim (Ds)) 1 tab BID PO Last administered on 06/14/19 08:53; Admin Dose 1 TAB; Start 06/09/19 at 11:08 Cephalexin (Keflex) 500 mg Q8 PO Last administered on 06/14/19 13:05; Admin Dose 500 MG; Start 06/09/19 at 14:00 Nicotine (Nicoderm 14 Mg/ 24hr) 1 patch DAILY TRANSDERM Last administered on 06/14/19 08:53; Admin Dose 1 PATCH; Start 06/11/19 at 13:30 JOSELIN JONES NP Jun 14, 2019 16:19
[2019-06-14 19:47] VITALS: BP 137/89; PULSE 90; RESP 17
[2019-06-15 02:15] VITALS: BP 131/84; PULSE 87; RESP 17
[2019-06-15] MEDS: CEPHALEXIN 500 MG CAP PO SCH ×3 (05:43→21:18)
[2019-06-15 07:32] VITALS: BP 109/59; PULSE 69; RESP 16
[2019-06-15] MEDS: THIAMINE 100 MG TAB PO SCH (08:39)
[2019-06-15] MEDS: CHOLECALCIFEROL 1,000 UNIT TAB PO SCH (08:39)
[2019-06-15] MEDS: MULTIVITAMINS THERAPEUTIC TAB PO SCH (08:39)
[2019-06-15] MEDS: NICOTINE (14 MG/24 HR) PATCH TRANSDERM SCH (08:39)
[2019-06-15] MEDS: TRIMETHOPRIM/SULFAMETHOX (DS) TAB PO SCH ×2 (08:39→21:18)
[2019-06-15] MEDS: DAKINS 0.0125%(1/40) 473 ML SOLUTION TP SCH (08:40)
[2019-06-15] MEDS: ENOXAPARIN 40 MG/0.4 ML SYG SC SCH (08:41)
[2019-06-15] MEDS: LORAZEPAM 2 MG INJ IV PRN (10:25)
[2019-06-15] MEDS: HYDROCODONE/APAP (5/325) TAB PO PRN (13:09)
[2019-06-15 14:12] VITALS: BP 127/75; PULSE 81; RESP 16
--- NOTE | 2019-06-15 15:02 | CONS ---
Assessment/Plan Assessment/Plan Hospital Course (Demo Recall) No acute changes Wound cx + Proteus, MSSA, corynebact Antimicrobials: Bactrim Keflex Physical examination this is a well-developed middle-aged white man who looks older his age with a poor hygiene patient is in no distress head atraumatic normocephalic neck is supple chest rise symmetrical breath sounds clear heart S1-S2 abdomen soft bowel sounds present extremities with right lower extremity erythema also dressing. Skin patient has a very poor hygiene and smells Assessment: Right lower extremity cellulitis Homelessness Alcohol and nicotine abuse Plan: Remains stable, completing abx Consultation Date/Type/Reason Admit Date/Time Jun 05, 2019 at 12:03 Initial Consult Date Type of Consult id Date/Time of Note DATE: 06/15/19 TIME: 15:01 Exam/Review of Systems Exam Vitals Vital Signs Date Temp Pulse Resp B/P (MAP) Pulse Ox O2 O2 Flow FiO2 Time Delivery Rate 06/15/19 98.5 81 16 127/75 96 14:12 (92) 06/15/19 Room Air 02:15 Intake and Output 06/14/19 06/14/19 06/15/19 1515:00 23:00 07:00 IntakeIntake Total 840 ml 350 ml BalanceBalance 840 ml 350 ml Medications Medication Current Medications IV Flush (NS 3 ml) 3 ml PER PROTOCOL IV Last administered on 06/11/19at 09:16; Admin Dose 3 ML; Start 06/05/19 at 14:30 Ondansetron HCl (Zofran Inj) 4 mg Q6H PRN IV NAUSEA/VOMITING; Start 06/05/19 at 14:30 Acetaminophen (Tylenol Tab) 650 mg Q6H PRN PO .PAIN 1-3 OR TEMP; Start 06/05/19 at 14:30 Acetaminophen/ Hydrocodone Bitart ([place] (5/325)) 1 tab Q6H PRN PO .MOD PAIN 4- 6 Last administered on 06/15/19at 13:09; Admin Dose 1 TAB; Start 06/05/19 at 14:30 Enoxaparin Sodium (Lovenox) 40 mg DAILY SC Last administered on 06/15/19at 08:41; Admin Dose 40 MG; Start 06/06/19 at 09:00 Lorazepam (Ativan) 1 mg Q6H PRN IV Anxiety Last administered on 06/15/19 10:25; Admin Dose 1 MG; Start 06/05/19 at 15:00 Thiamine HCl (Vitamin B1) 100 mg DAILY PO Last administered on 06/15/19 08:39; Admin Dose 100 MG; Start 06/06/19 at 09:00 Multivitamins Therapeutic (Theragran) 1 tab DAILY PO Last administered on 06/15/19 08:39; Admin Dose 1 TAB; Start 06/06/19 at 09:00 Sodium Hypochlorite (Dakins Diluted ()) 1 applic DAILY TP Last administered on 06/15/19 08:40; Admin Dose 1 APPLIC; Start 06/06/19 at 09:00 Cholecalciferol (Vitamin D) 1,000 unit DAILY PO Last administered on 06/15/19 08:39; Admin Dose 1,000 UNIT; Start 06/06/19 at 09:00 Trimethoprim/ Sulfamethoxazole (Bactrim (Ds)) 1 tab BID PO Last administered on 06/15/19 08:39; Admin Dose 1 TAB; Start 06/09/19 at 11:08 Cephalexin (Keflex) 500 mg Q8 PO Last administered on 06/15/19 13:09; Admin D ose 500 MG; Start 06/09/19 at 14:00 Nicotine (Nicoderm 14 Mg/ 24hr) 1 patch DAILY TRANSDERM Last administered on 06/15/19 08:39; Admin Dose 1 PATCH; Start 06/11/19 at 13:30 CHEMO LEE NP Jun 15, 2019 15:02
--- NOTE | 2019-06-15 15:30 | PN ---
Date/Time of Note Date/Time of Note DATE: 06/15/19 TIME: 15:29 Assessment/Plan VTE Prophylaxis Risk score (from Ns)>0 risk: 3 SCD applied (from Ns): No SCD contraindicated: other Pharmacological prophylaxis: LMWH Lines/Catheters [facility] Saline Lock Urinary Cath still in place: No Assessment/Plan Hospital Course SUBJECTIVE: Continues to be selectively mute. OBJECTIVE: Physical Exam General: Adequately build 48 year-old male lying in bed in no apparent distress, looks disheveled. HEENT: Normocephalic, atraumatic. Eyes: Anicteric sclerae, conjunctivae clear. ENT: Nasal septum midline, oral mucosa is dry. Neck supple, no JVD noticed. Respiratory: Bilaterally diminished breath sounds. No use of accessory muscles of respiration. No adventitious breath sounds. Cardiovascular: S1, S2 heard. Regular rate and rhythm. Abdomen: Soft, nontender, and nondistended. Bowel sounds positive in all 4 quadrants. Genitourinary: Deferred. Extremities: No cyanosis, no clubbing. Right lower extremity circumferential erythema from the middle of the [place] to the ankle joint. Edema of the right ankle joint. Excessive exfoliation of the right lower extremity with dry scabs circumferentially. Peripheral pulses palpable. Neurologic: The patient is awake and alert. Unable to tell his name, age, his location, or any other personal details. Answers" I do not know" to all questions related to his identity. Labs & Vitals per chart ASSESSMENT & PLAN 48-year-old male who is apparently homeless with no details of his identity, medical, and social history, who presented to the emergency room with chief complaint of right lower extremity redness and pain, with evidence of underlying right lower extremity cellulitis, who was admitted to inpatient setting for further treatment and evaluation. 1. Right lower extremity cellulitis. Continue antimicrobials as per ID. Podiatry following. Arterial Doppler study negative for any significant arterial occlusion. Bilateral lower extremity venous Doppler study negative for any DVT. 2. Alcohol abuse. Continue the patient on vitamin supplements. S/P Librium taper. 3. Nicotine use. Nicotine patch. 4. Normocytic anemia. Most probably anemia chronic disease. Monitor H&H closely. 5. Homelessness. torpedo worker consult. 6. Incomplete database. Social work consult. 7. Fluids, electrolytes, and nutrition. Regular diet. 8. DVT prophylaxis. Subcutaneous Lovenox . 9. Plan. Continue antimicrobials as per ID. Needs placement upon discharge. The patient was seen in collaboration with Dr. Hernandez. Exam/Review of Systems Exam Vitals Vital Signs Date Temp Pulse Resp B/P (MAP) Pulse Ox O2 O2 Flow FiO2 Time Delivery Rate 06/15/19 98.5 81 16 127/75 96 14:12 (92) 06/15/19 Room Air 02:15 Intake and Output 06/14/19 06/14/19 06/15/19 1414:59 22:59 06:59 IntakeIntake Total 840 ml 350 ml BalanceBalance 840 ml 350 ml Medications Medication Current Medications IV Flush (NS 3 ml) 3 ml PER PROTOCOL IV Last administered on 06/11/19 09:16; Admin Dose 3 ML; Start 06/05/19 at 14:30 Ondansetron HCl (Zofran Inj) 4 mg Q6H PRN IV NAUSEA/VOMITING; Start 06/05/19 at 14:30 Acetaminophen (Tylenol Tab) 650 mg Q6H PRN PO .PAIN 1-3 OR TEMP; Start 06/05/19 at 14:30 Acetaminophen/ Hydrocodone Bitart ([place] (5/325)) 1 tab Q6H PRN PO .MOD PAIN 4- 6 Last administered on 06/15/19 13:09; Admin Dose 1 TAB; Start 06/05/19 at 14:30 Enoxaparin Sodium (Lovenox) 40 mg DAILY SC Last administered on 06/15/19 08:41; Admin Dose 40 MG; Start 06/06/19 at 09:00 Lorazepam (Ativan) 1 mg Q6H PRN IV Anxiety Last administered on 06/15/19 10:25; Admin Dose 1 MG; Start 06/05/19 at 15:00 Thiamine HCl (Vitamin B1) 100 mg DAILY PO Last administered on 06/15/19 08:39; Admin Dose 100 MG; Start 06/06/19 at 09:00 Multivitamins Therapeutic (Theragran) 1 tab DAILY PO Last administered on 06/15/19 08:39; Admin Dose 1 TAB; Start 06/06/19 at 09:00 Sodium Hypochlorite (Dakins Diluted ()) 1 applic DAILY TP Last administered on 06/15/19 08:40; Admin Dose 1 APPLIC; Start 06/06/19 at 09:00 Cholecalciferol (Vitamin D) 1,000 unit DAILY PO Last administered on 06/15/19 08:39; Admin Dose 1,000 UNIT; Start 06/06/19 at 09:00 Trimethoprim/ Sulfamethoxazole (Bactrim (Ds)) 1 tab BID PO Last administered on 06/15/19 08:39; Admin Dose 1 TAB; Start 06/09/19 at 11:08 Cephalexin (Keflex) 500 mg Q8 PO Last administered on 06/15/19 13:09; Admin Dose 500 MG; Start 06/09/19 at 14:00 Nicotine (Nicoderm 14 Mg/ 24hr) 1 patch DAILY TRANSDERM Last administered on 06/15/19 08:39; Admin Dose 1 PATCH; Start 06/11/19 at 13:30 KAILYN GILBERT NP Jun 15, 2019 15:30
[2019-06-15 20:00] VITALS: BP 114/71; PULSE 95; RESP 17
[2019-06-16 02:00] VITALS: BP 124/71; PULSE 76; RESP 19
--- NOTE | 2019-06-16 05:45 | PN ---
Date/Time of Note Date/Time of Note DATE: 06/16/19 TIME: 05:45 Assessment/Plan VTE Prophylaxis Risk score (from Ns)>0 risk: 3 SCD applied (from Ns): No SCD contraindicated: other Pharmacological prophylaxis: LMWH Lines/Catheters IV Catheter Type (from [facility]): Saline Lock Urinary Cath still in place: No Assessment/Plan Hospital Course SUBJECTIVE: Continues to be selectively mute. OBJECTIVE: Physical Exam General: Adequately build 48 year-old male lying in bed in no apparent distress, looks disheveled. HEENT: Normocephalic, atraumatic. Eyes: Anicteric sclerae, conjunctivae clear. ENT: Nasal septum midline, oral mucosa is dry. Neck supple, no JVD noticed. Respiratory: Bilaterally diminished breath sounds. No use of accessory muscles of respiration. No adventitious breath sounds. Cardiovascular: S1, S2 heard. Regular rate and rhythm. Abdomen: Soft, nontender, and nondistended. Bowel sounds positive in all 4 quadrants. Genitourinary: Deferred. Extremities: No cyanosis, no clubbing. Right lower extremity circumferential erythema from the middle of the orosco to the ankle joint. Edema of the right ankle joint. Excessive exfoliation of the right lower extremity with dry scabs circumferentially. Peripheral pulses palpable. Neurologic: The patient is awake and alert. Unable to tell his name, age, his location, or any other personal details. Answers" I do not know" to all questions related to his identity. Labs & Vitals per chart ASSESSMENT & PLAN 48-year-old male who is apparently homeless with no details of his identity, medical, and social history, who presented to the emergency room with chief complaint of right lower extremity redness and pain, with evidence of underlying right lower extremity cellulitis, who was admitted to inpatient setting for further treatment and evaluation. 1. Right lower extremity cellulitis. Continue antimicrobials as per ID. Podiatry following. Arterial Doppler study negative for any significant arterial occlusion. Bilateral lower extremity venous Doppler study negative for any DVT. 2. Alcohol abuse. Continue the patient on vitamin supplements. S/P Librium taper. 3. Nicotine use. Nicotine patch. 4. Normocytic anemia. Most probably anemia chronic disease. Monitor H&H closely. 5. Homelessness. 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 6. Incomplete database. Social work consult. 7. Fluids, electrolytes, and nutrition. Regular diet. 8. DVT prophylaxis. Subcutaneous Lovenox . 9. Plan. Continue antimicrobials as per ID. Needs placement upon discharge. The patient was seen in collaboration with Dr. Hernandez. Exam/Review of Systems Exam Vitals Vital Signs Date Temp Pulse Resp B/P (MAP) Pulse Ox O2 O2 Flow FiO2 Time Delivery Rate 06/16/19 98.1 76 19 124/71 95 02:00 (88) 06/15/19 Room Air 02:15 Intake and Output 06/15/19 06/15/19 06/16/19 1515:00 23:00 07:00 IntakeIntake Total 480 ml 660 ml BalanceBalance 480 ml 660 ml Medications Medication Current Medications IV Flush (NS 3 ml) 3 ml PER PROTOCOL IV Last administered on 06/11/19 09:16; Admin Dose 3 ML; Start 06/05/19 at 14:30 Ondansetron HCl (Zofran Inj) 4 mg Q6H PRN IV NAUSEA/VOMITING; Start 06/05/19 at 14:30 Acetaminophen (Tylenol Tab) 650 mg Q6H PRN PO .PAIN 1-3 OR TEMP; Start 06/05/19 at 14:30 Acetaminophen/ Hydrocodone Bitart ([place] (5/325)) 1 tab Q6H PRN PO .MOD PAIN 4- 6 Last administered on 06/15/19 13:09; Admin Dose 1 TAB; Start 06/05/19 at 14:30 Enoxaparin Sodium (Lovenox) 40 mg DAILY SC Last administered on 06/15/19 08:41; Admin Dose 40 MG; Start 06/06/19 at 09:00 Lorazepam (Ativan) 1 mg Q6H PRN IV Anxiety Last administered on 06/15/19 10:25; Admin Dose 1 MG; Start 06/05/19 at 15:00 Thiamine HCl (Vitamin B1) 100 mg DAILY PO Last administered on 06/15/19 08:39; Admin Dose 100 MG; Start 06/06/19 at 09:00 Multivitamins Therapeutic (Theragran) 1 tab DAILY PO Last administered on 06/15/19 08:39; Admin Dose 1 TAB; Start 06/06/19 at 09:00 Sodium Hypochlorite (Dakins Diluted ()) 1 applic DAILY TP Last administered on 06/15/19 08:40; Admin Dose 1 APPLIC; Start 06/06/19 at 09:00 Cholecalciferol (Vitamin D) 1,000 unit DAILY PO Last administered on 06/15/19 08:39; Admin Dose 1,000 UNIT; Start 06/06/19 at 09:00 Trimethoprim/ Sulfamethoxazole (Bactrim (Ds)) 1 tab BID PO Last administered on 06/15/19 21:18; Admin Dose 1 TAB; Start 06/09/19 at 11:08 Cephalexin (Keflex) 500 mg Q8 PO Last administered on 06/15/19 21:18; Admin Dose 500 MG; Start 06/09/19 at 14:00 Nicotine (Nicoderm 14 Mg/ 24hr) 1 patch DAILY TRANSDERM Last administered on 06/15/19 08:39; Admin Dose 1 PATCH; Start 06/11/19 at 13:30 KAILYN GILBERT NP Jun 16, 2019 05:45
[2019-06-16] MEDS: CEPHALEXIN 500 MG CAP PO SCH ×3 (06:05→22:10)
[2019-06-16 07:43] VITALS: BP 114/66; PULSE 78; RESP 16
[2019-06-16] MEDS: NICOTINE (14 MG/24 HR) PATCH TRANSDERM SCH (08:08)
[2019-06-16] MEDS: CHOLECALCIFEROL 1,000 UNIT TAB PO SCH (08:09)
[2019-06-16] MEDS: TRIMETHOPRIM/SULFAMETHOX (DS) TAB PO SCH ×2 (08:09→22:10)
[2019-06-16] MEDS: THIAMINE 100 MG TAB PO SCH (08:09)
[2019-06-16] MEDS: MULTIVITAMINS THERAPEUTIC TAB PO SCH (08:09)
[2019-06-16] MEDS: ENOXAPARIN 40 MG/0.4 ML SYG SC SCH (08:13)
[2019-06-16] MEDS: DAKINS 0.0125%(1/40) 473 ML SOLUTION TP SCH (08:14)
--- NOTE | 2019-06-16 13:11 | CONS ---
Assessment/Plan Assessment/Plan Hospital Course (Demo Recall) No acute changes, no fevers. looks comfortable Wound cx + Proteus, MSSA, corynebact Antimicrobials: Bactrim Keflex Physical examination this is a well-developed middle-aged white man who looks older his age with a poor hygiene patient is in no distress head atraumatic normocephalic neck is supple chest rise symmetrical breath sounds clear heart S1-S2 abdomen soft bowel sounds present extremities with right lower extremity erythema also dressing. Skin patient has a very poor hygiene and smells Assessment: Right lower extremity cellulitis Homelessness Alcohol and nicotine abuse Plan: Remains stable, completing abx Consultation Date/Type/Reason Admit Date/Time Jun 05, 2019 at 12:03 Initial Consult Date Type of Consult id Date/Time of Note DATE: 06/16/19 TIME: 13:10 Exam/Review of Systems Exam Vitals Vital Signs Date Temp Pulse Resp B/P (MAP) Pulse Ox O2 O2 Flow FiO2 Time Delivery Rate 06/16/19 98.0 78 16 114/66 96 07:43 (82) 06/15/19 Room Air 02:15 Intake and Output 06/15/19 06/15/19 06/16/19 1515:00 23:00 07:00 IntakeIntake Total 480 ml 660 ml BalanceBalance 480 ml 660 ml Results Result Diagram: 06/16/19 0415 Results 24hrs Laboratory Tests Test 06/16/19 04:15 Blood Urea Nitrogen 26 H Creatinine 0.95 Medications Medication Current Medications IV Flush (NS 3 ml) 3 ml PER PROTOCOL IV Last administered on 06/11/19at 09:16; Admin Dose 3 ML; Start 06/05/19 at 14:30 Ondansetron HCl (Zofran Inj) 4 mg Q6H PRN IV NAUSEA/VOMITING; Start 06/05/19 at 14:30 Acetaminophen (Tylenol Tab) 650 mg Q6H PRN PO .PAIN 1-3 OR TEMP; Start 06/05/19 at 14:30 Acetaminophen/ Hydrocodone Bitart ([place] (5/325)) 1 tab Q6H PRN PO .MOD PAIN 4- 6 Last administered on 06/15/19at 13:09; Admin Dose 1 TAB; Start 06/05/19 at 14:30 Enoxaparin Sodium (Lovenox) 40 mg DAILY SC Last administered on 06/16/19 08:13; Admin Dose 40 MG; Start 06/06/19 at 09:00 Lorazepam (Ativan) 1 mg Q6H PRN IV Anxiety Last administered on 06/15/19 10:25; Admin Dose 1 MG; Start 06/05/19 at 15:00 Thiamine HCl (Vitamin B1) 100 mg DAILY PO Last administered on 06/16/19 08:09; Admin Dose 100 MG; Start 06/06/19 at 09:00 Multivitamins Therapeutic (Theragran) 1 tab DAILY PO Last administered on 06/16/19 08:09; Admin Dose 1 TAB; Start 06/06/19 at 09:00 Sodium Hypochlorite (Dakins Diluted ()) 1 applic DAILY TP Last administered on 06/16/19 08:14; Admin Dose 1 APPLIC; Start 06/06/19 at 09:00 Cholecalciferol (Vitamin D) 1,000 unit DAILY PO Last administered on 06/16/19 08:09; Admin Dose 1,000 UNIT; Start 06/06/19 at 09:00 Trimethoprim/ Sulfamethoxazole (Bactrim (Ds)) 1 tab BID PO Last administered on 06/16/19 08:09; Admin Dose 1 TAB; Start 06/09/19 at 11:08 Cephalexin (Keflex) 500 mg Q8 PO Last administered on 06/16/19 06:05; Admin Dose 500 MG; Start 06/09/19 at 14:00 Nicotine (Nicoderm 14 Mg/ 24hr) 1 patch DAILY TRANSDERM Last administered on 06/16/19 08:08; Admin Dose 1 PATCH; Start 06/11/19 at 13:30 CHEMO LEE NP Jun 16, 2019 13:11
[2019-06-16 14:00] VITALS: BP 129/81; PULSE 87; RESP 18
[2019-06-16 19:52] VITALS: BP 133/78; PULSE 76; RESP 17
[2019-06-17 01:40] VITALS: BP 126/78; PULSE 83; RESP 17
--- NOTE | 2019-06-17 05:49 | PN ---
Date/Time of Note Date/Time of Note DATE: 06/17/19 TIME: 05:49 Assessment/Plan VTE Prophylaxis Risk score (from Ns)>0 risk: 3 SCD applied (from Ns): No SCD contraindicated: other Pharmacological prophylaxis: LMWH Lines/Catheters IV [facility] (from [facility] Saline Lock Urinary Cath still in place: No Assessment/Plan Hospital Course SUBJECTIVE: Continues to be selectively mute. OBJECTIVE: Physical Exam General: Adequately build 48 year-old male lying in bed in no apparent distress, looks disheveled. HEENT: Normocephalic, atraumatic. Eyes: Anicteric sclerae, conjunctivae clear. ENT: Nasal septum midline, oral mucosa is dry. Neck supple, no JVD noticed. Respiratory: Bilaterally diminished breath sounds. No use of accessory muscles o f respiration. No adventitious breath sounds. Cardiovascular: S1, S2 heard. Regular rate and rhythm. Abdomen: Soft, nontender, and nondistended. Bowel sounds positive in all 4 quadrants. Genitourinary: Deferred. Extremities: No cyanosis, no clubbing. Right lower extremity circumferential erythema from the middle of the orosco to the ankle joint. Edema of the right ankle joint. Excessive exfoliation of the right lower extremity with dry scabs circumferentially. Peripheral pulses palpable. Neurologic: The patient is awake and alert. Unable to tell his name, age, his location, or any other personal details. Answers" I do not know" to all questions related to his identity. Labs & Vitals per chart ASSESSMENT & PLAN 48-year-old male who is apparently homeless with no details of his identity, medical, and social history, who presented to the emergency room with chief complaint of right lower extremity redness and pain, with evidence of underlying right lower extremity cellulitis, who was admitted to inpatient setting for further treatment and evaluation. 1. Right lower extremity cellulitis. Continue antimicrobials as per ID. Podiatry following. Arterial Doppler study negative for any significant arterial occlusion. Bilateral lower extremity venous Doppler study negative for any DVT. 2. Alcohol abuse. Continue the patient on vitamin supplements. S/P Librium taper. 3. Nicotine use. Nicotine patch. 4. Normocytic anemia. Most probably anemia chronic disease. Monitor H&H closely. 5. Homelessness. 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 6. Incomplete database. Social work consult. 7. Fluids, electrolytes, and nutrition. Regular diet. 8. DVT prophylaxis. Subcutaneous Lovenox . 9. Plan. Continue antimicrobials as per ID. Needs placement upon discharge. The patient was seen in collaboration with Dr. Hernandez. Result Diagram: 06/16/19 0415 Exam/Review of Systems Exam Vitals Vital Signs Date Temp Pulse Resp B/P (MAP) Pulse Ox O2 O2 Flow FiO2 Time Delivery Rate 06/17/19 97.9 83 17 126/78 95 01:40 (94) 06/15/19 Room Air 02:15 Intake and Output 06/16/19 06/16/19 06/17/19 1515:00 23:00 07:00 IntakeIntake Total 1820 ml 480 ml BalanceBalance 1820 ml 480 ml Medications Medication Current Medications IV Flush (NS 3 ml) 3 ml PER PROTOCOL IV Last administered on 06/11/19at 09:16; Admin Dose 3 ML; Start 06/05/19 at 14:30 Ondansetron HCl (Zofran Inj) 4 mg Q6H PRN IV NAUSEA/VOMITING; Start 06/05/19 at 14:30 Acetaminophen (Tylenol Tab) 650 mg Q6H PRN PO .PAIN 1-3 OR TEMP; Start 06/05/19 at 14:30 Acetaminophen/ Hydrocodone Bitart ([place] (5/325)) 1 tab Q6H PRN PO .MOD PAIN 4- 6 Last administered on 06/15/19at 13:09; Admin Dose 1 TAB; Start 06/05/19 at 14:30 Enoxaparin Sodium (Lovenox) 40 mg DAILY SC Last administered on 06/16/19at 08:13; Admin Dose 40 MG; Start 06/06/19 at 09:00 Lorazepam (Ativan) 1 mg Q6H PRN IV Anxiety Last administered on 06/15/19at 10:25; Admin Dose 1 MG; Start 06/05/19 at 15:00 Thiamine HCl (Vitamin B1) 100 mg DAILY PO Last administered on 06/16/19at 08:09; Admin Dose 100 MG; Start 06/06/19 at 09:00 Multivitamins Therapeutic (Theragran) 1 tab DAILY PO Last administered on 06/16/19at 08:09; Admin Dose 1 TAB; Start 06/06/19 at 09:00 Sodium Hypochlorite (Dakins Diluted (1/40)) 1 applic DAILY TP Last administered on 06/16/19 08:14; Admin Dose 1 APPLIC; Start 06/06/19 at 09:00 Cholecalciferol (Vitamin D) 1,000 unit DAILY PO Last administered on 06/16/19 08:09; Admin Dose 1,000 UNIT; Start 06/06/19 at 09:00 Trimethoprim/ Sulfamethoxazole (Bactrim (Ds)) 1 tab BID PO Last administered on 06/16/19 22:10; Admin Dose 1 TAB; Start 06/09/19 at 11:08 Cephalexin (Keflex) 500 mg Q8 PO Last administered on 06/16/19 22:10; Admin Dose 500 MG; Start 06/09/19 at 14:00 Nicotine (Nicoderm 14 Mg/ 24hr) 1 patch DAILY TRANSDERM Last administered on 06/16/19 08:08; Admin Dose 1 PATCH; Start 06/11/19 at 13:30 KAILYN GILBERT NP Jun 17, 2019 05:49
[2019-06-17] MEDS: CEPHALEXIN 500 MG CAP PO SCH ×3 (06:31→21:17)
[2019-06-17 07:40] VITALS: BP 109/62; PULSE 84; RESP 18
[2019-06-17] MEDS: DAKINS 0.0125%(1/40) 473 ML SOLUTION TP SCH (08:28)
[2019-06-17] MEDS: THIAMINE 100 MG TAB PO SCH (08:28)
[2019-06-17] MEDS: TRIMETHOPRIM/SULFAMETHOX (DS) TAB PO SCH ×2 (08:28→21:17)
[2019-06-17] MEDS: CHOLECALCIFEROL 1,000 UNIT TAB PO SCH (08:28)
[2019-06-17] MEDS: MULTIVITAMINS THERAPEUTIC TAB PO SCH (08:28)
[2019-06-17] MEDS: NICOTINE (14 MG/24 HR) PATCH TRANSDERM SCH (08:29)
[2019-06-17] MEDS: ENOXAPARIN 40 MG/0.4 ML SYG SC SCH (08:29)
--- NOTE | 2019-06-17 11:22 | CONS ---
Assessment/Plan Assessment/Plan Hospital Course (Demo Recall) No acute changes, looks comfortable Wound cx + Proteus, MSSA, corynebact Antimicrobials: Bactrim Keflex Physical examination this is a well-developed middle-aged white man who looks older his age with a poor hygiene patient is in no distress head atraumatic normocephalic neck is supple chest rise symmetrical breath sounds clear heart S1-S2 abdomen soft bowel sounds present extremities with right lower extremity erythema also dressing. Skin patient has a very poor hygiene and smells Assessment: Right lower extremity cellulitis Homelessness Alcohol and nicotine abuse Plan: Remains stable, dc abx in am Consultation Date/Type/Reason Admit Date/Time Jun 05, 2019 at 12:03 Initial Consult Date Type of Consult id Date/Time of Note DATE: 06/17/19 TIME: 11:21 Exam/Review of Systems Exam Vitals Vital Signs Date Temp Pulse Resp B/P (MAP) Pulse Ox O2 O2 Flow FiO2 Time Delivery Rate 06/17/19 97.9 84 18 109/62 97 Room Air 07:40 (78) Intake and Output 06/16/19 06/16/19 06/17/19 1515:00 23:00 07:00 IntakeIntake Total 1820 ml 480 ml BalanceBalance 1820 ml 480 ml Results Result Diagram: 06/16/19 0415 Medications Medication Current Medications IV Flush (NS 3 ml) 3 ml PER PROTOCOL IV Last administered on 06/11/19at 09:16; Admin Dose 3 ML; Start 06/05/19 at 14:30 Ondansetron HCl (Zofran Inj) 4 mg Q6H PRN IV NAUSEA/VOMITING; Start 06/05/19 at 14:30 Acetaminophen (Tylenol Tab) 650 mg Q6H PRN PO .PAIN 1-3 OR TEMP; Start 06/05/19 at 14:30 Acetaminophen/ Hydrocodone Bitart ([place] (5/325)) 1 tab Q6H PRN PO .MOD PAIN 4- 6 Last administered on 06/15/19at 13:09; Admin Dose 1 TAB; Start 06/05/19 at 14:30 Enoxaparin Sodium (Lovenox) 40 mg DAILY SC Last administered on 06/17/19at 08:29; Admin Dose 40 MG; Start 06/06/19 at 09:00 Lorazepam (Ativan) 1 mg Q6H PRN IV Anxiety Last administered on 06/15/19 10:25; Admin Dose 1 MG; Start 06/05/19 at 15:00 Thiamine HCl (Vitamin B1) 100 mg DAILY PO Last administered on 06/17/19 08:28; Admin Dose 100 MG; Start 06/06/19 at 09:00 Multivitamins Therapeutic (Theragran) 1 tab DAILY PO Last administered on 06/17/19 08:28; Admin Dose 1 TAB; Start 06/06/19 at 09:00 Sodium Hypochlorite (Dakins Diluted (40)) 1 applic DAILY TP Last administered on 06/17/19 08:28; Admin Dose 1 APPLIC; Start 06/06/19 at 09:00 Cholecalciferol (Vitamin D) 1,000 unit DAILY PO Last administered on 06/17/19 08:28; Admin Dose 1,000 UNIT; Start 06/06/19 at 09:00 Trimethoprim/ Sulfamethoxazole (Bactrim (Ds)) 1 tab BID PO Last administered on 06/17/19 08:28; Admin Dose 1 TAB; Start 06/09/19 at 11:08 Cephalexin (Keflex) 500 mg Q8 PO Last administered on 06/17/19 06:31; Admin Dose 500 MG; Start 06/09/19 at 14:00 Nicotine (Nicoderm 14 Mg/ 24hr) 1 patch DAILY TRANSDERM Last administered on 06/16/19 08:08; Admin Dose 1 PATCH; Start 06/11/19 at 13:30 CHEMO LEE NP Jun 17, 2019 11:22
[2019-06-17 14:02] VITALS: BP 116/67; PULSE 92; RESP 18
[2019-06-17] MEDS: LORAZEPAM 2 MG INJ IV PRN (19:12)
[2019-06-17 20:00] VITALS: BP 110/63; PULSE 85; RESP 19
[2019-06-18 01:55] VITALS: BP 120/76; PULSE 75; RESP 20
[2019-06-18] MEDS: CEPHALEXIN 500 MG CAP PO SCH (05:30)
[2019-06-18 07:28] VITALS: BP 127/78; PULSE 89; RESP 18
--- NOTE | 2019-06-18 07:59 | PN ---
Date/Time of Note Date/Time of Note DATE: 06/18/19 TIME: 07:59 Assessment/Plan VTE Prophylaxis Risk score (from Ns)>0 risk: 1 SCD applied (from Ns): No SCD contraindicated: other Pharmacological prophylaxis: LMWH Lines/Catheters [facility] Saline Lock Urinary Cath still in place: No Assessment/Plan Hospital Course SUBJECTIVE: Continues to be selectively mute. OBJECTIVE: Physical Exam General: Adequately build 48 year-old male lying in bed in no apparent distress, looks disheveled. HEENT: Normocephalic, atraumatic. Eyes: Anicteric sclerae, conjunctivae clear. ENT: Nasal septum midline, oral mucosa is dry. Neck supple, no JVD noticed. Respiratory: Bilaterally diminished breath sounds. No use of accessory muscles o f respiration. No adventitious breath sounds. Cardiovascular: S1, S2 heard. Regular rate and rhythm. Abdomen: Soft, nontender, and nondistended. Bowel sounds positive in all 4 quadrants. Genitourinary: Deferred. Extremities: No cyanosis, no clubbing. Right lower extremity circumferential erythema from the middle of the [place]rosco to the ankle joint. Edema of the right ankle joint. Excessive exfoliation of the right lower extremity with dry scabs circumferentially. Peripheral pulses palpable. Neurologic: The patient is awake and alert. Unable to tell his name, age, his location, or any other personal details. Answers" I do not know" to all questions related to his identity. Labs & Vitals per chart ASSESSMENT & PLAN 48-year-old male who is apparently homeless with no details of his identity, medical, and social history, who presented to the emergency room with chief complaint of right lower extremity redness and pain, with evidence of underlying right lower extremity cellulitis, who was admitted to inpatient setting for further treatment and evaluation. 1. Right lower extremity cellulitis. S/P antimicrobials as per ID. Podiatry following. Arterial Doppler study negative for any significant arterial occlusion. Bilateral lower extremity venous Doppler study negative for any DVT. 2. Alcohol abuse. Continue the patient on vitamin supplements. S/P Librium taper. 3. Nicotine use. Nicotine patch. 4. Normocytic anemia. Most probably anemia chronic disease. Monitor H&H closely. 5. Homelessness. 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 6. Incomplete database. Social work consult. 7. Fluids, electrolytes, and nutrition. Regular diet. 8. DVT prophylaxis. Subcutaneous Lovenox . 9. Plan. Continue PT. Needs placement upon discharge. The patient was seen in collaboration with Dr. Hernandez. Result Diagram: 06/16/19 0415 Exam/Review of Systems Exam Vitals Vital Signs Date Temp Pulse Resp B/P (MAP) Pulse Ox O2 O2 Flow FiO2 Time Delivery Rate 06/18/19 98.0 89 18 127/78 94 Room Air 07:28 (94) Intake and Output 06/17/19 06/17/19 06/18/19 1515:00 23:00 07:00 IntakeIntake Total 500 ml 300 ml BalanceBalance 500 ml 300 ml Medications Medication Current Medications IV Flush (NS 3 ml) 3 ml PER PROTOCOL IV Last administered on 06/11/19 09:16; Admin Dose 3 ML; Start 06/05/19 at 14:30 Ondansetron HCl (Zofran Inj) 4 mg Q6H PRN IV NAUSEA/VOMITING; Start 06/05/19 at 14:30 Acetaminophen (Tylenol Tab) 650 mg Q6H PRN PO .PAIN 1-3 OR TEMP; Start 06/05/19 at 14:30 Acetaminophen/ Hydrocodone Bitart ([place] (5/325)) 1 tab Q6H PRN PO .MOD PAIN 4- 6 Last administered on 06/15/19 13:09; Admin Dose 1 TAB; Start 06/05/19 at 14:30 Enoxaparin Sodium (Lovenox) 40 mg DAILY SC Last administered on 06/17/19 08:29; Admin Dose 40 MG; Start 06/06/19 at 09:00 Lorazepam (Ativan) 1 mg Q6H PRN IV Anxiety Last administered on 06/17/19 19:12; Admin Dose 1 MG; Start 06/05/19 at 15:00 Thiamine HCl (Vitamin B1) 100 mg DAILY PO Last administered on 06/17/19 08:28; Admin Dose 100 MG; Start 06/06/19 at 09:00 Multivitamins Therapeutic (Theragran) 1 tab DAILY PO Last administered on 06/17/19 08:28; Admin Dose 1 TAB; Start 06/06/19 at 09:00 Sodium Hypochlorite (Dakins Diluted (40)) 1 applic DAILY TP Last administered on 06/17/19 08:28; Admin Dose 1 APPLIC; Start 06/06/19 at 09:00 Cholecalciferol (Vitamin D) 1,000 unit DAILY PO Last administered on 06/17/19 08:28; Admin Dose 1,000 UNIT; Start 06/06/19 at 09:00 Trimethoprim/ Sulfamethoxazole (Bactrim (Ds)) 1 tab BID PO Last administered on 06/17/19 21:17; Admin Dose 1 TAB; Start 06/09/19 at 11:08 Cephalexin (Keflex) 500 mg Q8 PO Last administered on 06/18/19 05:30; Admin Dose 500 MG; Start 06/09/19 at 14:00 Nicotine (Nicoderm 14 Mg/ 24hr) 1 patch DAILY TRANSDERM Last administered on 06/16/19 08:08; Admin Dose 1 PATCH; Start 06/11/19 at 13:30 KAILYN GILBERT NP Jun 18, 2019 07:59
[2019-06-18] MEDS: TRIMETHOPRIM/SULFAMETHOX (DS) TAB PO SCH (08:15)
[2019-06-18] MEDS: ENOXAPARIN 40 MG/0.4 ML SYG SC SCH (08:15)
[2019-06-18] MEDS: MULTIVITAMINS THERAPEUTIC TAB PO SCH (08:15)
[2019-06-18] MEDS: THIAMINE 100 MG TAB PO SCH (08:15)
[2019-06-18] MEDS: CHOLECALCIFEROL 1,000 UNIT TAB PO SCH (08:15)
[2019-06-18] MEDS: NICOTINE (14 MG/24 HR) PATCH TRANSDERM SCH (08:16)
[2019-06-18] MEDS: DAKINS 0.0125%(1/40) 473 ML SOLUTION TP SCH (08:17)
--- NOTE | 2019-06-18 12:34 | CONS ---
Assessment/Plan Assessment/Plan Hospital Course (Demo Recall) No acute changes, looks comfortable Wound cx + Proteus, MSSA, corynebact Antimicrobials: Bactrim Keflex Physical examination this is a well-developed middle-aged white man who looks older his age with a poor hygiene patient is in no distress head atraumatic normocephalic neck is supple chest rise symmetrical breath sounds clear heart S1-S2 abdomen soft bowel sounds present extremities with right lower extremity erythema also dressing. Skin patient has a very poor hygiene and smells Assessment: Right lower extremity cellulitis Homelessness Alcohol and nicotine abuse Plan: Remains stable, dc abx Consultation Date/Type/Reason Admit Date/Time Jun 05, 2019 at 12:03 Initial Consult Date Type of Consult id Date/Time of Note DATE: 06/18/19 TIME: 12:34 Exam/Review of Systems Exam Vitals Vital Signs Date Temp Pulse Resp B/P (MAP) Pulse Ox O2 O2 Flow FiO2 Time Delivery Rate 06/18/19 98.0 89 18 127/78 94 Room Air 07:28 (94) Intake and Output 06/17/19 06/17/19 06/18/19 1515:00 23:00 07:00 IntakeIntake Total 500 ml 300 ml BalanceBalance 500 ml 300 ml Results Result Diagram: 06/16/19 0415 Medications Medication Current Medications IV Flush (NS 3 ml) 3 ml PER PROTOCOL IV Last administered on 06/11/19at 09:16; Admin Dose 3 ML; Start 06/05/19 at 14:30 Ondansetron HCl (Zofran Inj) 4 mg Q6H PRN IV NAUSEA/VOMITING; Start 06/05/19 at 14:30 Acetaminophen (Tylenol Tab) 650 mg Q6H PRN PO .PAIN 1-3 OR TEMP; Start 06/05/19 at 14:30 Acetaminophen/ Hydrocodone Bitart ([place] (5/325)) 1 tab Q6H PRN PO .MOD PAIN 4- 6 Last administered on 06/15/19at 13:09; Admin Dose 1 TAB; Start 06/05/19 at 14:30 Enoxaparin Sodium (Lovenox) 40 mg DAILY SC Last administered on 06/18/19at 08:15; Admin Dose 40 MG; Start 06/06/19 at 09:00 Lorazepam (Ativan) 1 mg Q6H PRN IV Anxiety Last administered on 06/17/19 1 9:12; Admin Dose 1 MG; Start 06/05/19 at 15:00 Thiamine HCl (Vitamin B1) 100 mg DAILY PO Last administered on 06/18/19 08:15; Admin Dose 100 MG; Start 06/06/19 at 09:00 Multivitamins Therapeutic (Theragran) 1 tab DAILY PO Last administered on 06/18/19 08:15; Admin Dose 1 TAB; Start 06/06/19 at 09:00 Sodium Hypochlorite (Dakins Diluted (40)) 1 applic DAILY TP Last administered on 06/18/19 08:17; Admin Dose 1 APPLIC; Start 06/06/19 at 09:00 Cholecalciferol (Vitamin D) 1,000 unit DAILY PO Last administered on 06/18/19 08:15; Admin Dose 1,000 UNIT; Start 06/06/19 at 09:00 Trimethoprim/ Sulfamethoxazole (Bactrim (Ds)) 1 tab BID PO Last administered on 06/18/19 08:15; Admin Dose 1 TAB; Start 06/09/19 at 11:08 Cephalexin (Keflex) 500 mg Q8 PO Last administered on 06/18/19 05:30; Admin Dose 500 MG; Start 06/09/19 at 14:00 Nicotine (Nicoderm 14 Mg/ 24hr) 1 patch DAILY TRANSDERM Last administered on 06/16/19 08:08; Admin Dose 1 PATCH; Start 06/11/19 at 13:30 CHEMO LEE NP Jun 18, 2019 12:34
[2019-06-18 13:50] VITALS: BP 123/75; PULSE 85; RESP 18
[2019-06-18 20:03] VITALS: BP 113/66; PULSE 89; RESP 18
[2019-06-19 02:25] VITALS: BP 129/78; PULSE 81; RESP 18
[2019-06-19 07:41] VITALS: BP 122/75; PULSE 70; RESP 18
[2019-06-19] MEDS: MULTIVITAMINS THERAPEUTIC TAB PO SCH (08:45)
[2019-06-19] MEDS: THIAMINE 100 MG TAB PO SCH (08:45)
[2019-06-19] MEDS: NICOTINE (14 MG/24 HR) PATCH TRANSDERM SCH (08:45)
[2019-06-19] MEDS: CHOLECALCIFEROL 1,000 UNIT TAB PO SCH (08:45)
[2019-06-19] MEDS: DAKINS 0.0125%(1/40) 473 ML SOLUTION TP SCH (08:46)
[2019-06-19] MEDS: ENOXAPARIN 40 MG/0.4 ML SYG SC SCH (08:47)
--- NOTE | 2019-06-19 11:38 | CONS ---
Assessment/Plan Assessment/Plan Hospital Course (Demo Recall) No acute changes, looks comfortable Wound cx + Proteus, MSSA, corynebact==> treated Antimicrobials: none Physical examination this is a well-developed middle-aged white man who looks older his age with a poor hygiene patient is in no distress head atraumatic normocephalic neck is supple chest rise symmetrical breath sounds clear heart S1-S2 abdomen soft bowel sounds present extremities with right lower extremity erythema also dressing. Skin patient has a very poor hygiene and smells Assessment: S/p Right lower extremity cellulitis Homelessness Alcohol and nicotine abuse Plan: Remains stable, complete abx Consultation Date/Type/Reason Admit Date/Time Jun 05, 2019 at 12:03 Initial Consult Date Type of Consult id Date/Time of Note DATE: 06/19/19 TIME: 11:37 Exam/Review of Systems Exam Vitals Vital Signs Date Temp Pulse Resp B/P (MAP) Pulse Ox O2 O2 Flow FiO2 Time Delivery Rate 06/19/19 98.5 70 18 122/75 96 Room Air 07:41 (91) Intake and Output 06/18/19 06/18/19 06/19/19 1515:00 23:00 07:00 IntakeIntake Total 600 ml 300 ml OutputOutput Total 120 ml BalanceBalance 600 ml 180 ml Results Result Diagram: 06/16/19 0415 Medications Medication Current Medications IV Flush (NS 3 ml) 3 ml PER PROTOCOL IV Last administered on 06/11/19at 09:16; Admin Dose 3 ML; Start 06/05/19 at 14:30 Ondansetron HCl (Zofran Inj) 4 mg Q6H PRN IV NAUSEA/VOMITING; Start 06/05/19 at 14:30 Acetaminophen (Tylenol Tab) 650 mg Q6H PRN PO .PAIN 1-3 OR TEMP; Start 06/05/19 at 14:30 Acetaminophen/ Hydrocodone Bitart ([place] (5/325)) 1 tab Q6H PRN PO .MOD PAIN 4- 6 Last administered on 06/15/19at 13:09; Admin Dose 1 TAB; Start 06/05/19 at 14:30 Enoxaparin Sodium (Lovenox) 40 mg DAILY SC Last administered on 06/19/19at 08:47; Admin Dose 40 MG; Start 06/06/19 at 09:00 Lorazepam (Ativan) 1 mg Q6H PRN IV Anxiety Last administered on 06/17/19 19:12; Admin Dose 1 MG; Start 06/05/19 at 15:00 Thiamine HCl (Vitamin B1) 100 mg DAILY PO Last administered on 06/19/19 08:45; Admin Dose 100 MG; Start 06/06/19 at 09:00 Multivitamins Therapeutic (Theragran) 1 tab DAILY PO Last administered on 06/19/19 08:45; Admin Dose 1 TAB; Start 06/06/19 at 09:00 Sodium Hypochlorite (Dakins Diluted ()) 1 applic DAILY TP Last administered on 06/19/19 08:46; Admin Dose 1 APPLIC; Start 06/06/19 at 09:00 Cholecalciferol (Vitamin D) 1,000 unit DAILY PO Last administered on 06/19/19 08:45; Admin Dose 1,000 UNIT; Start 06/06/19 at 09:00 Nicotine (Nicoderm 14 Mg/ 24hr) 1 patch DAILY TRANSDERM Last administered on 08:45; Admin Dose 1 PATCH; Start 06/11/19 at 13:30 CHEMO LEE NP Jun 19, 2019 11:38
--- NOTE | 2019-06-19 13:55 | PN ---
Date/Time of Note Date/Time of Note DATE: 06/19/19 TIME: 13:54 Assessment/Plan VTE Prophylaxis Risk score (from Ns)>0 risk: 3 SCD applied (from Ns): No SCD contraindicated: other Pharmacological prophylaxis: LMWH Lines/Catheters IV [facility]from [facility] Saline Lock Urinary Cath still in place: No Assessment/Plan Hospital Course SUBJECTIVE: Continues to be selectively mute. OBJECTIVE: Physical Exam General: Adequately build 48 year-old male lying in bed in no apparent distress, looks disheveled. HEENT: Normocephalic, atraumatic. Eyes: Anicteric sclerae, conjunctivae clear. ENT: Nasal septum midline, oral mucosa is dry. Neck supple, no JVD noticed. Respiratory: Bilaterally diminished breath sounds. No use of accessory muscles o f respiration. No adventitious breath sounds. Cardiovascular: S1, S2 heard. Regular rate and rhythm. Abdomen: Soft, nontender, and nondistended. Bowel sounds positive in all 4 quadrants. Genitourinary: Deferred. Extremities: No cyanosis, no clubbing. Right lower extremity circumferential erythema from the middle of the orosco to the ankle joint. Edema of the right ankle joint. Excessive exfoliation of the right lower extremity with dry scabs circumferentially. Peripheral pulses palpable. Neurologic: The patient is awake and alert. Unable to tell his name, age, his location, or any other personal details. Answers" I do not know" to all questions related to his identity. Labs & Vitals per chart ASSESSMENT & PLAN 48-year-old male who is apparently homeless with no details of his identity, medical, and social history, who presented to the emergency room with chief complaint of right lower extremity redness and pain, with evidence of underlying right lower extremity cellulitis, who was admitted to inpatient setting for further treatment and evaluation. 1. Right lower extremity cellulitis. S/P antimicrobials as per ID. Podiatry following. Arterial Doppler study negative for any significant arterial occlusion. Bilateral lower extremity venous Doppler study negative for any DVT. 2. Alcohol abuse. Continue the patient on vitamin supplements. S/P Librium taper. 3. Nicotine use. Nicotine patch. 4. Normocytic anemia. Most probably anemia chronic disease. Monitor H&H closely. 5. Homelessness. supervisor fur floor worker consult. 6. Incomplete database. Social work consult. 7. Fluids, electrolytes, and nutrition. Regular diet. 8. DVT prophylaxis. Subcutaneous Lovenox . 9. Plan. Continue PT. Needs placement upon discharge. The patient was seen in collaboration with Dr. Hernandez. Result Diagram: 06/16/19 0415 Exam/Review of Systems Exam Vitals Vital Signs Date Temp Pulse Resp B/P (MAP) Pulse Ox O2 O2 Flow FiO2 Time Delivery Rate 06/19/19 98.5 70 18 122/75 96 Room Air 07:41 (91) Intake and Output 06/18/19 06/18/19 06/19/19 1515:00 23:00 07:00 IntakeIntake Total 600 ml 300 ml OutputOutput Total 120 ml BalanceBalance 600 ml 180 ml Medications Medication Current Medications IV Flush (NS 3 ml) 3 ml PER PROTOCOL IV Last administered on 06/11/19at 09:16; Admin Dose 3 ML; Start 06/05/19 at 14:30 Ondansetron HCl (Zofran Inj) 4 mg Q6H PRN IV NAUSEA/VOMITING; Start 06/05/19 at 14:30 Acetaminophen (Tylenol Tab) 650 mg Q6H PRN PO .PAIN 1-3 OR TEMP; Start 06/05/19 at 14:30 Acetaminophen/ Hydrocodone Bitart ([place] (5/325)) 1 tab Q6H PRN PO .MOD PAIN 4- 6 Last administered on 06/15/19at 13:09; Admin Dose 1 TAB; Start 06/05/19 at 14:30 Enoxaparin Sodium (Lovenox) 40 mg DAILY SC Last administered on 06/19/19at 08:47; Admin Dose 40 MG; Start 06/06/19 at 09:00 Lorazepam (Ativan) 1 mg Q6H PRN IV Anxiety Last administered on 06/17/19 19:12; Admin Dose 1 MG; Start 06/05/19 at 15:00 Thiamine HCl (Vitamin B1) 100 mg DAILY PO Last administered on 06/19/19at 08:45; Admin Dose 100 MG; Start 06/06/19 at 09:00 Multivitamins Therapeutic (Theragran) 1 tab DAILY PO Last administered on 06/19/19at 08:45; Admin Dose 1 TAB; Start 06/06/19 at 09:00 Sodium Hypochlorite (Dakins Diluted ()) 1 applic DAILY TP Last administered on 06/19/19 08:46; Admin Dose 1 APPLIC; Start 06/06/19 at 09:00 Cholecalciferol (Vitamin D) 1,000 unit DAILY PO Last administered on 06/19/19 08:45; Admin Dose 1,000 UNIT; Start 06/06/19 at 09:00 Nicotine (Nicoderm 14 Mg/ 24hr) 1 patch DAILY TRANSDERM Last administered on 06/19/19 08:45; Admin Dose 1 PATCH; Start 06/11/19 at 13:30 KAILYN GILBERT NP Jun 19, 2019 13:55
[2019-06-19 14:11] VITALS: BP 133/81; PULSE 81; RESP 18
[2019-06-19 20:11] VITALS: BP 139/85; PULSE 84; RESP 18
[2019-06-20 02:05] VITALS: BP 133/82; PULSE 89; RESP 17
[2019-06-20 02:12] VITALS: BP 139/85; PULSE 85; RESP 18
[2019-06-20 07:42] VITALS: BP 119/74; PULSE 77; RESP 17
[2019-06-20] MEDS: THIAMINE 100 MG TAB PO SCH (09:08)
[2019-06-20] MEDS: CHOLECALCIFEROL 1,000 UNIT TAB PO SCH (09:08)
[2019-06-20] MEDS: DAKINS 0.0125%(1/40) 473 ML SOLUTION TP SCH (09:08)
[2019-06-20] MEDS: MULTIVITAMINS THERAPEUTIC TAB PO SCH (09:08)
[2019-06-20] MEDS: NICOTINE (14 MG/24 HR) PATCH TRANSDERM SCH (09:08)
[2019-06-20] MEDS: ENOXAPARIN 40 MG/0.4 ML SYG SC SCH (09:10)
[2019-06-20] MEDS: NACL 0.9% 3 ML SYG IV SCH (09:10)
[2019-06-20] MEDS ORDERED: NICOTINE POLACRILEX 2 MG GUM BUCCAL PRN (12:30)
--- NOTE | 2019-06-20 12:36 | PN ---
Date/Time of Note Date/Time of Note DATE: 06/20/19 TIME: 12:35 Assessment/Plan VTE Prophylaxis Risk score (from Ns)>0 risk: 2 SCD applied (from Ns): No SCD contraindicated: other Pharmacological prophylaxis: LMWH Lines/Catheters [facility] Saline Lock Urinary Cath still in place: No Assessment/Plan Hospital Course SUBJECTIVE: Continues to be selectively mute. OBJECTIVE: Physical Exam General: Adequately build 48 year-old male lying in bed in no apparent distress, looks disheveled. HEENT: Normocephalic, atraumatic. Eyes: Anicteric sclerae, conjunctivae clear. ENT: Nasal septum midline, oral mucosa is dry. Neck supple, no JVD noticed. Respiratory: Bilaterally diminished breath sounds. No use of accessory muscles o f respiration. No adventitious breath sounds. Cardiovascular: S1, S2 heard. Regular rate and rhythm. Abdomen: Soft, nontender, and nondistended. Bowel sounds positive in all 4 quadrants. Genitourinary: Deferred. Extremities: No cyanosis, no clubbing. Right lower extremity circumferential erythema from the middle of the orosco to the ankle joint. Edema of the right ankle joint. Excessive exfoliation of the right lower extremity with dry scabs circumferentially. Peripheral pulses palpable. Neurologic: The patient is awake and alert. Unable to tell his name, age, his location, or any other personal details. Answers" I do not know" to all questions related to his identity. Labs & Vitals per chart ASSESSMENT & PLAN 48-year-old male who is apparently homeless with no details of his identity, medical, and social history, who presented to the emergency room with chief complaint of right lower extremity redness and pain, with evidence of underlying right lower extremity cellulitis, who was admitted to inpatient setting for further treatment and evaluation. 1. Right lower extremity cellulitis. S/P antimicrobials as per ID. Podiatry following. Arterial Doppler study negative for any significant arterial occlusion. Bilateral lower extremity venous Doppler study negative for any DVT. 2. Alcohol abuse. Continue the patient on vitamin supplements. S/P Librium taper. 3. Nicotine use. Nicotine patch. 4. Normocytic anemia. Most probably anemia chronic disease. Monitor H&H closely. 5. Homelessness. pediatric social worker consult. 6. Incomplete database. Social work consult. 7. Fluids, electrolytes, and nutrition. Regular diet. 8. DVT prophylaxis. Subcutaneous Lovenox . 9. Plan. Continue PT. Needs placement upon discharge. The patient was seen in collaboration with Dr. Araya. Result Diagram: 06/16/19 0415 Exam/Review of Systems Exam Vitals Vital Signs Date Temp Pulse Resp B/P (MAP) Pulse Ox O2 O2 Flow FiO2 Time Delivery Rate 06/20/19 97.9 77 17 119/74 96 07:42 (89) 06/20/19 Room Air 02:12 Intake and Output 06/19/19 06/19/19 06/20/19 1515:00 23:00 07:00 IntakeIntake Total 300 ml 400 ml 590 ml BalanceBalance 300 ml 400 ml 590 ml Medications Medication Current Medications IV Flush (NS 3 ml) 3 ml PER PROTOCOL IV Last administered on 06/20/19at 09:10; A dmin Dose 3 ML; Start 06/05/19 at 14:30 Ondansetron HCl (Zofran Inj) 4 mg Q6H PRN IV NAUSEA/VOMITING; Start 06/05/19 at 14:30 Acetaminophen (Tylenol Tab) 650 mg Q6H PRN PO .PAIN 1-3 OR TEMP; Start 06/05/19 at 14:30 Acetaminophen/ Hydrocodone Bitart ([place] (5/325)) 1 tab Q6H PRN PO .MOD PAIN 4- 6 Last administered on 06/15/19at 13:09; Admin Dose 1 TAB; Start 06/05/19 at 14:30 Enoxaparin Sodium (Lovenox) 40 mg DAILY SC Last administered on 06/20/19 09:10; Admin Dose 40 MG; Start 06/06/19 at 09:00 Lorazepam (Ativan) 1 mg Q6H PRN IV Anxiety Last administered on 06/17/19 19:12; Admin Dose 1 MG; Start 06/05/19 at 15:00 Thiamine HCl (Vitamin B1) 100 mg DAILY PO Last administered on 06/20/19 09:08; Admin Dose 100 MG; Start 06/06/19 at 09:00 Multivitamins Therapeutic (Theragran) 1 tab DAILY PO Last administered on 06/20/19 09:08; Admin Dose 1 TAB; Start 06/06/19 at 09:00 Sodium Hypochlorite (Dakins Diluted (1/40)) 1 applic DAILY TP Last administered on 06/20/19 09:08; Admin Dose 1 APPLIC; Start 06/06/19 at 09:00 Cholecalciferol (Vitamin D) 1,000 unit DAILY PO Last administered on 06/20/19 09:08; Admin Dose 1,000 UNIT; Start 06/06/19 at 09:00 Nicotine (Nicoderm 14 Mg/ 24hr) 1 patch DAILY TRANSDERM Last administered on 06/20/19 09:08; Admin Dose 1 PATCH; Start 06/11/19 at 13:30 Nicotine Polacrilex (Nicorette) 2 mg Q2H PRN BUCCAL NOTE; Start 06/20/19 at 12:30 KAILYN GILBERT NP Jun 20, 2019 12:36
[2019-06-20 14:00] VITALS: BP 147/87; PULSE 89; RESP 18
[2019-06-20 20:00] VITALS: BP 132/84; PULSE 87; RESP 18
[2019-06-21 02:26] VITALS: BP 106/68; PULSE 82; RESP 15
[2019-06-21 08:00] VITALS: BP 116/67; PULSE 81; RESP 16
[2019-06-21] MEDS: NICOTINE (14 MG/24 HR) PATCH TRANSDERM SCH (08:39)
[2019-06-21] MEDS: THIAMINE 100 MG TAB PO SCH (08:40)
[2019-06-21] MEDS: CHOLECALCIFEROL 1,000 UNIT TAB PO SCH (08:40)
[2019-06-21] MEDS: DAKINS 0.0125%(1/40) 473 ML SOLUTION TP SCH (08:40)
[2019-06-21] MEDS: MULTIVITAMINS THERAPEUTIC TAB PO SCH (08:40)
[2019-06-21] MEDS: ENOXAPARIN 40 MG/0.4 ML SYG SC SCH (08:48)
--- NOTE | 2019-06-21 10:27 | PN ---
Date/Time of Note Date/Time of Note DATE: 06/21/19 TIME: 10:27 Assessment/Plan VTE Prophylaxis Risk score (from Ns)>0 risk: 2 SCD applied (from Ns): No SCD contraindicated: other Pharmacological prophylaxis: LMWH Lines/Catheters IV Catheter Type (from [facility]): Peripheral IV Urinary Cath still in place: No Assessment/Plan Hospital Course SUBJECTIVE: Continues to be selectively mute. OBJECTIVE: Physical Exam General: Adequately build 48 year-old male lying in bed in no apparent distress, looks disheveled. HEENT: Normocephalic, atraumatic. Eyes: Anicteric sclerae, conjunctivae clear. ENT: Nasal septum midline, oral mucosa is dry. Neck supple, no JVD noticed. Respiratory: Bilaterally diminished breath sounds. No use of accessory muscles of respiration. No adventitious breath sounds. Cardiovascular: S1, S2 heard. Regular rate and rhythm. Abdomen: Soft, nontender, and nondistended. Bowel sounds positive in all 4 quadrants. Genitourinary: Deferred. Extremities: No cyanosis, no clubbing. Right lower extremity circumferential erythema from the middle of the orosco to the ankle joint. Edema of the right ankle joint. Excessive exfoliation of the right lower extremity with dry scabs circumferentially. Peripheral pulses palpable. Neurologic: The patient is awake and alert. Unable to tell his name, age, his location, or any other personal details. Answers" I do not know" to all questions related to his identity. Labs & Vitals per chart ASSESSMENT & PLAN 48-year-old male who is apparently homeless with no details of his identity, medical, and social history, who presented to the emergency room with chief complaint of right lower extremity redness and pain, with evidence of underlying right lower extremity cellulitis, who was admitted to inpatient setting for further treatment and evaluation. 1. Right lower extremity cellulitis. S/P antimicrobials as per ID. Podiatry following. Arterial Doppler study negative for any significant arterial occlusion. Bilateral lower extremity venous Doppler study negative for any DVT. 2. Alcohol abuse. Continue the patient on vitamin supplements. S/P Librium taper. 3. Nicotine use. Nicotine patch. 4. Normocytic anemia. Most probably anemia chronic disease. Monitor H&H closely. 5. Homelessness. skid road worker consult. 6. Incomplete database. Social work consult. 7. Fluids, electrolytes, and nutrition. Regular diet. 8. DVT prophylaxis. Subcutaneous Lovenox. 9. Plan. Continue PT. Needs placement upon discharge. The patient was seen in collaboration with Dr. Araya. Exam/Review of Systems Exam Vitals Vital Signs Date Temp Pulse Resp B/P (MAP) Pulse Ox O2 O2 Flow FiO2 Time Delivery Rate 06/21/19 98.1 82 15 106/68 94 02:26 (81) 06/20/19 Room Air 02:12 Intake and Output 06/20/19 06/20/19 06/21/19 1515:00 23:00 07:00 IntakeIntake Total 720 ml 480 ml BalanceBalance 720 ml 480 ml Medications Medication Current Medications IV Flush (NS 3 ml) 3 ml PER PROTOCOL IV Last administered on 06/20/19 09:10; Admin Dose 3 ML; Start 06/05/19 at 14:30 Ondansetron HCl (Zofran Inj) 4 mg Q6H PRN IV NAUSEA/VOMITING; Start 06/05/19 at 14:30 Acetaminophen (Tylenol Tab) 650 mg Q6H PRN PO .PAIN 1-3 OR TEMP; Start 06/05/19 at 14:30 Acetaminophen/ Hydrocodone Bitart ([place] (5/325)) 1 tab Q6H PRN PO .MOD PAIN 4- 6 Last administered on 06/15/19 13:09; Admin Dose 1 TAB; Start 06/05/19 at 14:30 Enoxaparin Sodium (Lovenox) 40 mg DAILY SC Last administered on 06/21/19 08:48; Admin Dose 40 MG; Start 06/06/19 at 09:00 Lorazepam (Ativan) 1 mg Q6H PRN IV Anxiety Last administered on 06/17/19 19:12; Admin Dose 1 MG; Start 06/05/19 at 15:00 Thiamine HCl (Vitamin B1) 100 mg DAILY PO Last administered on 06/21/19 08:40; Admin Dose 100 MG; Start 06/06/19 at 09:00 Multivitamins Therapeutic (Theragran) 1 tab DAILY PO Last administered on 06/21/19 08:40; Admin Dose 1 TAB; Start 06/06/19 at 09:00 Sodium Hypochlorite (Dakins Diluted ()) 1 applic DAILY TP Last administered on 06/21/19 08:40; Admin Dose 1 APPLIC; Start 06/06/19 at 09:00 Cholecalciferol (Vitamin D) 1,000 unit DAILY PO Last administered on 06/21/19 08:40; Admin Dose 1,000 UNIT; Start 06/06/19 at 09:00 Nicotine (Nicoderm 14 Mg/ 24hr) 1 patch DAILY TRANSDERM Last administered on 06/21/19 08:39; Admin Dose 1 PATCH; Start 06/11/19 at 13:30 Nicotine Polacrilex (Nicorette) 2 mg Q2H PRN BUCCAL NOTE Last administered on 06/20/19at 12:52; Admin Dose 2 MG; Start 06/20/19 at 12:30 KAILYN GILBERT NP Jun 21, 2019 10:27
[2019-06-21 14:00] VITALS: BP 129/85; PULSE 88; RESP 17
[2019-06-21 19:34] VITALS: BP 133/76; PULSE 87; RESP 20
[2019-06-22 02:06] VITALS: BP 127/89; PULSE 89; RESP 15
[2019-06-22 07:30] VITALS: BP 130/98; PULSE 78; RESP 16
[2019-06-22] MEDS: CHOLECALCIFEROL 1,000 UNIT TAB PO SCH (08:12)
[2019-06-22] MEDS: THIAMINE 100 MG TAB PO SCH (08:12)
[2019-06-22] MEDS: MULTIVITAMINS THERAPEUTIC TAB PO SCH (08:12)
[2019-06-22] MEDS: NICOTINE (14 MG/24 HR) PATCH TRANSDERM SCH (08:13)
[2019-06-22] MEDS: DAKINS 0.0125%(1/40) 473 ML SOLUTION TP SCH (08:13)
[2019-06-22] MEDS: ENOXAPARIN 40 MG/0.4 ML SYG SC SCH (08:17)
--- NOTE | 2019-06-22 10:56 | PN ---
Date/Time of Note Date/Time of Note DATE: 06/22/19 TIME: 10:53 Assessment/Plan VTE Prophylaxis Risk score (from Ns)>0 risk: 2 SCD applied (from [facility] [place] [facility] No SCD contraindicated: other Pharmacological prophylaxis: LMWH Lines/Catheters IV Catheter Type (from [facility]): Peripheral IV Urinary Cath still in place: No Assessment/Plan Hospital Course 1. Right lower extremity cellulitis. abx finished wound culture: WOUND CULTURE Final Organism 1 STAPHYLOCOCCUS AUREUS QUANTITY 1+ Organism 2 PROTEUS MIRABILIS QUANTITY SCANT GROWTH Organism 3 CORYNEBACTERIUM SPECIES QUANTITY 1+ seen by podiatry Arterial Doppler study negative for any significant arterial occlusion. Bilateral lower extremity venous Doppler study negative for any DVT. continue wound care 2. Alcohol abuse. on vitamin supplement 3. Nicotine use. cessation was advised nicotine patch provided 4. Normocytic anemia. Likely of chronic disease. Monitor H&H. 5. Homelessness. knockdown worker consult following 6. Incomplete database. Social work consult following 7. Reported right side weakness - resolved CT brain: - No acute intracranial hemorrhage nor mass effect. 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 MRI brain has improved sensitivity for recent infarct or subtle lesion. Right shoulder xray: - No displaced fracture identified. - Diminutive distal clavicle with adjacent osseous fragment may be postsurgical / traumatic continue PT Disposition and plan. awaiting placement. continue supportive measures Discussed POC with Dr. Araya Subjective 24 Hr Interval Summary Free Text/Dictation resting. no specific complaints Exam/Review of Systems Exam Vitals Vital Signs Date Temp Pulse Resp B/P (MAP) Pulse Ox O2 O2 Flow FiO2 Time Delivery Rate 06/22/19 97.6 78 16 130/98 96 Room Air 07:30 (109) Constitutional: alert, oriented Head: normocephalic Respiratory: clear to auscultation, normal air movement Cardiovascular: other (regular rate) Gastrointestinal: soft, non-tender Musculoskeletal: nl extremities to inspection, other (rle with dressing in place) Neurological: nl mental status, nl speech Medications Medication Current Medications IV Flush (NS 3 ml) 3 ml PER PROTOCOL IV Last administered on 06/20/19at 09:10; Admin Dose 3 ML; Start 06/05/19 at 14:30 Ondansetron HCl (Zofran Inj) 4 mg Q6H PRN IV NAUSEA/VOMITING; Start 06/05/19 at 14:30 Acetaminophen (Tylenol Tab) 650 mg Q6H PRN PO .PAIN 1-3 OR TEMP; Start 06/05/19 at 14:30 Acetaminophen/ Hydrocodone Bitart ([place] (5/325)) 1 tab Q6H PRN PO .MOD PAIN 4- 6 Last administered on 06/15/19 13:09; Admin Dose 1 TAB; Start 06/05/19 at 14:30 Enoxaparin Sodium (Lovenox) 40 mg DAILY SC Last administered on 06/22/19 08:17; Admin Dose 40 MG; Start 06/06/19 at 09:00 Lorazepam (Ativan) 1 mg Q6H PRN IV Anxiety Last administered on 06/17/19 19:12; Admin Dose 1 MG; Start 06/05/19 at 15:00 Thiamine HCl (Vitamin B1) 100 mg DAILY PO Last administered on 06/22/19 08:12; Admin Dose 100 MG; Start 06/06/19 at 09:00 Multivitamins Therapeutic (Theragran) 1 tab DAILY PO Last administered on 06/22/19 08:12; Admin Dose 1 TAB; Start 06/06/19 at 09:00 Sodium Hypochlorite (Dakins Diluted (1/40)) 1 applic DAILY TP Last administered on 06/22/19 08:13; Admin Dose 1 APPLIC; Start 06/06/19 at 09:00 Cholecalciferol (Vitamin D) 1,000 unit DAILY PO Last administered on 06/22/19 08:12; Admin Dose 1,000 UNIT; Start 06/06/19 at 09:00 Nicotine (Nicoderm 14 Mg/ 24hr) 1 patch DAILY TRANSDERM Last administered on 06/22/19 08:13; Admin Dose 1 PATCH; Start 06/11/19 at 13:30 Nicotine Polacrilex (Nicorette) 2 mg Q2H PRN BUCCAL NOTE Last administered on 06/20/19 12:52; Admin Dose 2 MG; Start 06/20/19 at 12:30 KATY PATTERSON NP Jun 22, 2019 10:56
[2019-06-22 13:00] VITALS: BP 120/75; PULSE 88; RESP 17
[2019-06-22 19:55] VITALS: BP 143/83; PULSE 89; RESP 18
[2019-06-23 01:09] VITALS: BP 131/86; PULSE 82; RESP 18
[2019-06-23 08:00] VITALS: BP 114/67; PULSE 84; RESP 18
[2019-06-23] MEDS: NICOTINE (14 MG/24 HR) PATCH TRANSDERM SCH (08:31)
[2019-06-23] MEDS: CHOLECALCIFEROL 1,000 UNIT TAB PO SCH (08:31)
[2019-06-23] MEDS: MULTIVITAMINS THERAPEUTIC TAB PO SCH (08:31)
[2019-06-23] MEDS: THIAMINE 100 MG TAB PO SCH (08:31)
[2019-06-23] MEDS: DAKINS 0.0125%(1/40) 473 ML SOLUTION TP SCH (08:32)
[2019-06-23] MEDS: ENOXAPARIN 40 MG/0.4 ML SYG SC SCH (08:34)
--- NOTE | 2019-06-23 12:09 | PN ---
Date/Time of Note Date/Time of Note DATE: 06/23/19 TIME: 12:08 Assessment/Plan VTE Prophylaxis Risk score (from Ns)>0 risk: 2 SCD applied (from [facility]): No SCD contraindicated: other Pharmacological prophylaxis: LMWH Lines/Catheters IV Catheter Type (from [facility]): Peripheral IV Urinary Cath still in place: No Assessment/Plan Hospital Course 1. Right lower extremity cellulitis. abx finished wound culture: WOUND CULTURE Final Organism 1 STAPHYLOCOCCUS AUREUS QUANTITY 1+ Organism 2 PROTEUS MIRABILIS QUANTITY SCANT GROWTH Organism 3 CORYNEBACTERIUM SPECIES QUANTITY 1+ seen by podiatry Arterial Doppler study negative for any significant arterial occlusion. Bilateral lower extremity venous Doppler study negative for any DVT. continue wound care 2. Alcohol abuse. on vitamin supplement 3. Nicotine use. cessation was advised nicotine patch provided 4. Normocytic anemia. Likely of chronic disease. Monitor H&H. 5. Homelessness. housekeeping worker consult following 6. Incomplete database. Social work consult following 7. Reported right side weakness - resolved CT brain: - No acute intracranial hemorrhage nor mass effect. 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 MRI brain has improved sensitivity for recent infarct or subtle lesion. Right shoulder xray: - No displaced fracture identified. - Diminutive distal clavicle with adjacent osseous fragment may be postsurgical / traumatic continue PT Disposition and plan. awaiting placement. Encourage participation with physical therapy. Discussed POC with Dr. Melendez Subjective 24 Hr Interval Summary Free Text/Dictation comfortable at present. no acute distress noted. Exam/Review of Systems Exam Vitals Vital Signs Date Temp Pulse Resp B/P (MAP) Pulse Ox O2 O2 Flow FiO2 Time Delivery Rate 06/23/19 98.2 84 18 114/67 94 Room Air 08:00 (83) Intake and Output 06/22/19 06/22/19 06/23/19 1515:00 23:00 07:00 IntakeIntake Total 200 ml 480 ml BalanceBalance 200 ml 480 ml Exam Constitutional: alert, oriented Head: normocephalic Respiratory: clear to auscultation, normal air movement Cardiovascular: other (regular rate) Gastrointestinal: soft, non-tender Musculoskeletal: nl extremities to inspection, other (rle with dressing in place) Neurological: nl mental status, nl speech Medications Medication Current Medications IV Flush (NS 3 ml) 3 ml PER PROTOCOL IV Last administered on 06/20/19 09:10; Admin Dose 3 ML; Start 06/05/19 at 14:30 Ondansetron HCl (Zofran Inj) 4 mg Q6H PRN IV NAUSEA/VOMITING; Start 06/05/19 at 14:30 Acetaminophen (Tylenol Tab) 650 mg Q6H PRN PO .PAIN 1-3 OR TEMP; Start 06/05/19 at 14:30 Acetaminophen/ Hydrocodone Bitart ([place] (5/325)) 1 tab Q6H PRN PO .MOD PAIN 4- 6 Last administered on 06/15/19 13:09; Admin Dose 1 TAB; Start 06/05/19 at 14:30 Enoxaparin Sodium (Lovenox) 40 mg DAILY SC Last administered on 06/23/19 08:34; Admin Dose 40 MG; Start 06/06/19 at 09:00 Lorazepam (Ativan) 1 mg Q6H PRN IV Anxiety Last administered on 06/17/19 19:12; Admin Dose 1 MG; Start 06/05/19 at 15:00 Thiamine HCl (Vitamin B1) 100 mg DAILY PO Last administered on 06/23/19 08:31; Admin Dose 100 MG; Start 06/06/19 at 09:00 Multivitamins Therapeutic (Theragran) 1 tab DAILY PO Last administered on 06/23/19 08:31; Admin Dose 1 TAB; Start 06/06/19 at 09:00 Sodium Hypochlorite (Dakins Diluted (1/40)) 1 applic DAILY TP Last administered on 06/23/19 08:32; Admin Dose 1 APPLIC; Start 06/06/19 at 09:00 Cholecalciferol (Vitamin D) 1,000 unit DAILY PO Last administered on 06/23/19 08:31; Admin Dose 1,000 UNIT; Start 06/06/19 at 09:00 Nicotine (Nicoderm 14 Mg/ 24hr) 1 patch DAILY TRANSDERM Last administered on 06/23/19 08:31; Admin Dose 1 PATCH; Start 06/11/19 at 13:30 Nicotine Polacrilex (Nicorette) 2 mg Q2H PRN BUCCAL NOTE Last administered on 06/20/19 12:52; Admin Dose 2 MG; Start 06/20/19 at 12:30 KATY PATTERSON NP 30, 2019 12:09
[2019-06-23 20:06] VITALS: BP 149/94; PULSE 79; RESP 20
[2019-06-24 02:52] VITALS: BP 121/78; PULSE 84; RESP 18
[2019-06-24] MEDS: CHOLECALCIFEROL 1,000 UNIT TAB PO SCH (09:13)
[2019-06-24] MEDS: THIAMINE 100 MG TAB PO SCH (09:14)
[2019-06-24] MEDS: MULTIVITAMINS THERAPEUTIC TAB PO SCH (09:14)
[2019-06-24] MEDS: ENOXAPARIN 40 MG/0.4 ML SYG SC SCH (09:17)
[2019-06-24] MEDS: NICOTINE (14 MG/24 HR) PATCH TRANSDERM SCH (09:19)
[2019-06-24] MEDS: DAKINS 0.0125%(1/40) 473 ML SOLUTION TP SCH (09:31)
--- NOTE | 2019-06-24 14:08 | PDOCDIS ---
Discharge Instructions DIAGNOSIS Discharge Diagnosis 1. Right lower extremity cellulitis. 2. Alcohol abuse. 3. Nicotine use. 4. Normocytic anemia. 5. Homelessness. 6. Reported right side weakness - resolved CONDITION [id number] Patient Condition: [id number] Stable FOLLOW UP/APPOINTMENTS Follow-up Plan 1. Follow up with your primary care provider in one week KATY PATTERSON NP Jun 24, 2019 14:08
[2019-06-24 14:44] VITALS: BP 125/75; PULSE 85; RESP 19
--- NOTE | 2019-06-24 20:44 | DS ---
Date/Time of Note Date/Time of Note DATE: 06/24/19 TIME: 20:40 Discharge Summary Admission/Discharge Info Admit Date/Time Jun 05, 2019 at 12:03 Discharge Date/Time Jun 24, 2019 at 15:00 Discharge Diagnosis 1. Right lower extremity cellulitis. 2. Alcohol abuse. 3. Nicotine use. 4. Normocytic anemia. 5. Homelessness. 6. Reported right side weakness - resolved Patient Condition: Stable Hospital Course This is a 48-year-old male homeless who initially provided no details of his medical and social history came to the hospital due to reports of right lower extremity redness and pain. Patient was found to have right lower extremity cellulitis. He was seen by infectious disease physician as well as by squeegeer and former. We did get arterial Doppler that was negative for any acute significant occlusion. Bilateral lower extremity Doppler was also negative for DVT. After review by squeegeer and former we did continue him on wound care per their recommendations. He was also provided with antibiotic regimen per ID consult. He did have a history of alcohol abuse and was provided with vitamin supplement as well as Librium taper. We also got psychiatric social worker to follow him due to his homelessness. He had an incomplete database due to his unwillingness to share complete information about himself and psychiatric social worker did follow him for this. Patient did have lengthy stay due to the care needed for his right lower extremity. He was also difficult to find housing patient due to logistical issues. reinforcing steel worker and telephonic nurse case manager did follow the patient with this. Patient did finish his antibiotic course and he was optimized medically. After discussion with telephonic nurse case manager we were able to find recuperative care for the patient. Patient was agreeable to transferring to the care agency. The plan of care was discussed with the patient. On the day of discharge patient was in stable condition Discussed POC with Dr. Melendez [employer] Med Active Scripts Thiamine* (Vitamin B-1*) 100 Mg Tablet, 100 MG PO DAILY, #30 TAB Prov:KATY PATTERSON NP 06/24/19 Multivitamins* (Theragran*) 1 Tab Tab, 1 TAB PO DAILY, #90 TAB Prov:KATY PATTERSON NP 06/24/19 Cholecalciferol* (Vitamin D3*) 1,000 Unit Tablet, 1000 UNIT PO DAILY, #30 TAB Prov:KATY PATTERSON NP 06/24/19 Discontinued Scripts Cephalexin* (Keflex*) 500 Mg Capsule, 500 MG PO QID for 10 Days, CAP Prov:SHOLA GOOD MD 06/04/19 Trimethoprim-Sulfamethoxazole* (Bactrim*) 400-80 Mg Tab, 1 TAB PO BID, #20 TAB Prov:SHOLA GOOD MD 06/04/19 Follow-up Plan 1. Follow up with your primary care provider in one week Primary Care Provider Not On Staff Doctor Time spent on discharge: > 30 minutes KATY PATTERSON NP Jun 24, 2019 20:44
== END 2019-06-24 15:00 | DRG 603 ==
LOC: E/R 15:55 → 2NE 06-05 12:03 → 5EC 06-06 18:20 → MS3 06-23 10:41
PROVIDERS: ADMIT Internal Medicine; ATTEND Internal Medicine
DX: L03.115 Cellulitis of right lower limb (principal); L97.918 Non-pressure chronic ulcer of unspecified part of right lower leg with other specified severity; F10.10 Alcohol abuse, uncomplicated; F17.200 Nicotine dependence, unspecified, uncomplicated; D64.9 Anemia, unspecified; Z59.0 Homelessness; R62.7 Adult failure to thrive; Z68.23 Body mass index [BMI] 23.0-23.9, adult; B35.1 Tinea unguium; B35.3 Tinea pedis; F29 Unspecified psychosis not due to a substance or known physiological condition; R53.1 Weakness; F15.10 Other stimulant abuse, uncomplicated; Y90.0 Blood alcohol level of less than 20 mg/100 ml
CPT/HCPCS: 36415; 70450; 71045; 73630; 80048; 80053; 80061; 80202; 80307; 81003; 82150; 82306; 82565; 82652; 82962; 83036; 83605; 83690; 83735; 84100; 84145; 84425; 84439; 84443; 84484; 84520; 85025; 85610; 85651; 85730; 86140; 87070; 87086; 93005; 93922; 93970; 96365; 96367; 96375; 97110; 97116; 97162; 97167; 97530; 97535; J0696; J1650; J2060; J2270; J2405; J2543; J3370; J7050